=== PATIENT | female | born 1985 | race Caucasian/White ===

== ENCOUNTER 2019-09-17 08:19 | Outpatient (CLI) | payer BC, SELFPAY ==
[2019-09-17 08:47] LABS: Basophils Absolute Auto 0.09 K/mm3 (0.00-0.10); Basophils Percent Auto 1.1 % (0.0-1.0); Eosinophils Absolute Auto 0.78 K/mm3 (0.02-0.50); Eosinophils Percent Auto 9.3 % (1.0-6.0); Hematocrit 44.7 % (35.0-49.0); Hemoglobin 14.7 g/dL (12.0-15.0); Immature Granulocyte Absolute 0.03 K/mm3 (0.00-0.00); Immature Granulocyte Percent A 0.4 % (0.0-0.0); Lymphocytes Absolute Auto 1.93 K/mm3 (1.10-4.50); Lymphocytes Percent Auto 23.1 % (18.0-42.0); Mean Corpuscular HGB Conc 32.9 g/dL (32.0-36.0); Mean Corpuscular Volume 97.2 fL (78.0-102.0); Mean Platelet Volume 9.7 fl (9.2-11.8); Monocytes Absolute Auto 0.46 K/mm3 (0.10-0.90); Monocytes Percent Auto 5.5 % (2.0-11.0); Neutrophils Absolute Auto 5.1 K/mm3 (1.7-7.2); Neutrophils Percent Auto 60.6 % (50.0-70.0); Platelet Count Result 293 K/mm3 (150-420); Red Cell Distribution Width 12.9 % (11.6-14.4); White Blood Count 8.4 K/mm3 (4.8-10.8)
[2019-09-17 08:48] LABS: Add Urine Microscopic? NO; Appearance Urine Clear (Clear); Bilirubin Urine Negative (Negative); Blood Urine Negative (Negative); Color Urine Yellow (Yellow); Glucose Urine UA Negative (Negative); Ketones Urine Negative (Negative); Leukocyte Esterase Ur Negative (Negative); Nitrate Urine Negative (Negative); Protein Urine Negative (Negative); Specific Grav Ur 1.025 (1.010-1.020); Urobilinogen Urine 0.2 mg/dL (0.2-1.0)
[2019-09-17 09:56] LABS: Alanine Aminotransferase 16 U/L (14-59); Albumin Level 4.1 g/dL (3.4-5.0); Alkaline Phosphatase 63 U/L (46-116); Anion Gap 12.9 mmol/L (7-16); Aspartate Amino Transferase 9 U/L (15-37); Bilirubin,Total 0.4 mg/dL (0.00-1.00); Blood Urea Nitrogen 9 mg/dL (7-18); Calcium 9.1 mg/dL (8.5-10.1); Carbon Dioxide 29 mmol/L (21-32); Chloride 106 mmol/L (98-108); Cholesterol 167 mg/dL (0-200); Estimated Glomerular Filt Rate > 60; Glucose 84 mg/dL (70-99); HDL Direct 62 mg/dL (40-60); LDL Cholesterol Calculated 93 mg/dL (<130); Osmolality Calculated 293 mOsm/kg (285-295); Potassium 4.9 mmol/L (3.5-5.1); Sodium 143 mmol/L (136-145); Thyroid Stimulating Hormone 0.89 uIU/mL (0.36-3.74); Triglycerides 62 mg/dL (0-150)
== END 2019-09-17 08:20 | disposition home or self-care (01) ==
PROVIDERS: Student in an Organized Health Care Education/Training Program; PCP Internal Medicine; Visit Provider Internal Medicine
DX: Z00.00 Encounter for general adult medical examination without abnormal findings (principal); Z01.818 Encounter for other preprocedural examination
CPT/HCPCS: 36415; 80053; 80061; 81003; 84443; 85025

== ENCOUNTER 2019-09-24 13:59 | Outpatient (CLI) | payer BC, SELFPAY | END 2019-09-24 14:00 | disposition home or self-care (01) | LOC: ANHSURGERY 14:02 | PROVIDERS: PCP Internal Medicine; Visit Provider Student in an Organized Health Care Education/Training Program | DX: N92.0 Excessive and frequent menstruation with regular cycle (principal) | CPT/HCPCS: 36415; 86850; 86900; 86901 ==

== ENCOUNTER 2019-10-02 00:38 | Day surgery (SDC) | payer BC, SELFPAY ==
[2019-09-24 14:48] VITALS: BP 111/63; PULSE 84; RESP 16; TEMP 37.2; O2SAT 100; BMI 26.2
--- NOTE | 2019-10-01 18:08 | PM.IMHP ---
H&P: HPI History of Present Illness Chief complaint: Menorrhagia Narrative: Dionna Montemayor is a 34 year old female with a long history of irregular menses and abnormal uterine bleeding. Patient reports development of abnormal uterine bleeding between ages 16 and 21. She reports experiencing at least 2 menses every month that last 9-10 days each. Reports heavy menses as well as occasionally painful menses. Patient has tried medical management in the past, which did regulate cycles for a while, however, she did not like them for various reasons and does not desire another trial of medical management, which was offered to her. Patient also declined an endometrial ablation and adamantly desires definitive management with a hysterectomy. Pelvic ultrasound performed in March of 2019 was unremarkable. Pap smear in April of 2019 was negative and endometrial biopsy performed in May of 2019 was also negative. Review of Systems Review of Systems: All systems reviewed & are unremarkable except as noted in HPI and below Constitutional: Constitutional: Reports as per HPI, Reports no additional constitutional complaints, Denies chills, Denies fever(s), Denies headache(s) and Denies night sweats Eyes: Eyes: Reports as per HPI and Reports no additional eye complaints ENT: Reports system reviewed and no additional complaints, except as documented, Reports as per HPI, Reports Normal hearing present and Denies headache(s) Cardiovascular: Cardiovascular: Reports as per HPI, Reports no additional cardiovascular complaints, Denies chest pain and Denies dyspnea Respiratory: Respiratory: Reports as per HPI, Reports no additional respiratory complaints, Denies cough and Denies dyspnea Gastrointestinal: Gastrointestinal: Reports as per HPI, Reports no additional gastrointestinal complaints, Denies abdominal pain, Denies change in bowel habits, Denies change in stool character, Denies nausea and Denies vomiting Genitourinary: Genitourinary: Reports no additional female genitourinary complaints, Reports as per HPI, Reports abnormal menses, Reports abnormal vaginal bleeding, Denies genital lesions, Reports menorrhagia, Denies hot flashes, Denies dyspareunia, Reports dysmenorrhea, Denies pelvic pain, Denies sexual dysfunction, Denies urinary incontinence, Denies vaginal discharge, Denies vaginal dryness and Denies vaginal odor Musculoskeletal: Musculoskeletal: Reports no additional musculoskeletal complaints and Reports as per HPI Integumentary/Breasts: Skin/Breast: Reports system reviewed and no additional complaints, except as docu, Reports as per HPI, Denies breast pain and Denies nipple discharge Neurologic: Reports system reviewed and no additional complaints, except as documented, Reports as per HPI, Reports Normal hearing present and Denies headache(s) Psychiatric: Psychiatric: Reports no additional psychiatric complaints, Reports as per HPI, Denies anxiety and Denies depression Endocrine: Endocrine: Reports no additional endocrine complaints and Reports as per HPI Hematologic/Lymphatic: Hematologic/Lymphatic: Reports no additional hematologic/lymphatic complaints and Reports as per HPI Allergic/Immunologic: Allergic/Immunologic: Reports no additional allergic/immunologic complaints and Reports as per HPI PMFSH Past Medical History Medical History Anxiety Asthma Depression 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, quit 07/2016 Nerve damage s/p back surgery (normal spontaneous vaginal delivery) Surgical History Surgical History History of back surgery L4-S1 History of cholecystectomy [place] teeth removed Family History Family History Mother Family history of gallbladder disease Family history of malignant neoplasm of kidney Family history of rona
[2019-10-02] VITALS (18 sets, daily range): BP systolic 96–118; BP diastolic 53–79; PULSE 66–96; RESP 15–25; TEMP 36.6–37.4; O2SAT 96–100
[2019-10-02] MEDS: LACTATED RINGERS 1,000 ML 30 ML IV CONT ×3 (06:30→11:32)
--- NOTE | 2019-10-02 06:52 | WPDANESEPPF ---
Anes - Initial Pre Proc Eval Procedure: Operation Date: 10/02/19 07:30 Proposed Procedures p Laparoscopic Assisted Vaginal Hysterectomy, Bilateral Salpingectomy - Kerry Ramos MD Date/Time: 10/02/19 06:52 Surgeon: Kerry Ramos MD Pre Op Diagnosis: Menorrhagia Patient Data Age: 34 Gender: F Height: 1.68 m Weight: 73.8 kg Last Vital Signs Temp 37.2 C 09/24/19 14:48 Pulse 84 09/24/19 14:48 Resp 16 09/24/19 14:48 BP 111/63 09/24/19 14:48 Pulse Ox 100 09/24/19 14:48 Allergies Allergy/AdvReac Type Severity Reaction Status Date / Time ibuprofen Allergy Unknown Hives Verified 09/24/19 14:46 naproxen Allergy Unknown Hives Verified 09/24/19 14:46 morphine AdvReac Unknown Nausea Verified 09/24/19 14:46 Home Medications Medication Instructions Recorded Confirmed Type albuterol sulfate 90 mcg/actuation 1 inhalation INHALATION Q4H PRN 06/21/19 09/24/19 History aerosol inhaler ipratropium 20 mcg-albuterol 100 1 puff INHALATION QID PRN 06/21/19 09/24/19 History mcg/actuation mist for inhalation diazepam 5 mg PO BID 09/24/19 09/24/19 History Patient hx anesthesia problems: none Family hx anesthesia problems: none PMFSH Past Medical History Medical History Anxiety Asthma Depression 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, quit 07/2016 Nerve damage s/p back surgery (normal spontaneous vaginal delivery) Surgical History Surgical History History of back surgery L4-S1 History of cholecystectomy [place] teeth removed Family History Family History Mother Family history of gallbladder disease Family history of malignant neoplasm of kidney Family history of malignant neoplasm of thyroid Father Family history of liver disease Family history of kidney disease Other Cerebrovascular accident Family history of allergic disorder Social History Social History Smoking status: Heavy tobacco smoker Alcohol intake: current Gender identity (if verbalized by the patient): Female Anes - Evdyana Final PreProcedure Day of Procedure 10/02/19 06:52 Patient weight: overweight Heart: regular rate and rhythm Lungs: clear to auscultation and normal air movement Airway: Mallampati scale class II Neurological: alert and oriented Last oral intake: >/= 8 hours Emergent: no Anesthetic plan: proceed Anesthesia type and monitoring: general ETT and standard monitoring Other findings: requests no opioids Informed Consent: The patient's anesthetic plan and its attendant risks and benefits were discussed with the patient/family/POA. Questions were solicited and answers provided to the satisfaction of the patient/family/POA.
--- NOTE | 2019-10-02 07:20 | WPDHPUPDATE1 ---
History and Physical Update Update Date/Time: 10/02/19 07:20 History and Physical has been reviewed, including an updated exam of the patient. There are NO changes in the patient's condition. Risks, benefits, and alternatives have been discussed and questions answered. Patient agrees to proceed with procedure.
--- NOTE | 2019-10-02 07:34 | WPDANESPNB ---
Anes - Peripheral Nerve Block Date/Time: 10/02/19 07:34 I have discussed with the patient/family/POA the placement of a peripheral nerve block for post-operative pain management, including associated risks, benefits, complications, and side effects. Alternative methods of post-operative analgesia were detailed. Questions were solicited and answers provided to the satisfaction of the patient/family/POA. Time-Out: A pre-procedural Time-Out was completed immediately before starting the procedure and confirmed: Patient Identification, Site, Procedure, Patient Position and the Availability of Requisite Equipment. Clinical Indications: Acute post-operative pain management requested by the operative surgeon. Nerve Block Insertion Note Anes-nerve block: other (B/L ESSENCE block) Patient position: other (sitting) Skin prep: chlorhexidine Needle: 22 gauge, stimulating, insulated echogenic needle. Needle length: 80 mm Technique: ultrasound Injectate: bupivacaine 0.25% with epi 5 mcg/ml (20cc/20cc) Observations: tolerated well Complications: none Procedure start time:: 723 Procedure end time:: 730
[2019-10-02] MEDS: ceFAZolin 2 GM/D5W 50 ML 2 GM/50 ML BAG IVPB (07:36)
[2019-10-02] MEDS: BACITRACIN OINTMENT 15 GM TUBE 1 APPLIC TOPICAL (10:18)
--- NOTE | 2019-10-02 12:24 | SUR.PHASEI ---
Called dr Ramos about poor urine output. Said to watch it awhile longer.
[2019-10-02] MEDS: DEXTROSE 5%/0.45% SOD CHL 1,000 ML 150 ML IV CONT (13:50)
--- NOTE | 2019-10-02 13:50 | PM.PROC ---
Procedure Note - Detailed Date of procedure: 10/02/19 Pre-op diagnosis: Menorrhagia Irregular menses Abnormal uterine bleeding Menorrhagia Dysmenorrhea Post-op diagnosis: same Procedure performed: Laparoscopic assisted vaginal hysterectomy and bilateral salpingectomy Description of procedure: The patient was taken to the operating room where she self transferred to the operating room table and was placed in dorsal supine position. General anesthesia was administered without difficulty and found to be adequate. The patient was repositioned in dorsal lithotomy position with the use of Andrew stirrups and her arms were carefully tucked at her side. She was prepped and draped in the usual sterile fashion. A Villatoro catheter was inserted using sterile technique. A bivalve speculum was placed into the vagina. With good visualization of the cervix, the anterior lip of the cervix was grasped with a single-tooth tenaculum. The uterus was sounded to 8 cm. The cervix was serially dilated to accommodate the insertion of a HUMI uterine manipulator, which was inserted into the uterus for use during the laparoscopic portion of the case. The tenaculum and speculum were removed. Tool Liaison's gloves were changed. Attention was turned to the patient's abdomen. A small amount of Exparel was injected along the fascia for postoperative pain management in the infraumbilical region. A small infraumbilical incision was made with the scalpel. While tenting the abdominal wall, a Veress needle was inserted into the abdominal cavity. Intra-abdominal confirmation was made with saline. Carbon dioxide tubing was connected to the Veress needle and insufflation was begun. The abdomen was insufflated to 15 mm Hg. Once adequate pneumoperitoneum was achieved, the Veress needle was removed and a 5 mm Opti view trocar was inserted into the abdominal cavity under direct visualization with the laparoscope. The trocar was removed. The laparoscope was introduced into the abdominal cavity through the sheath. For enhanced visualization and completion of the procedure, 2 lateral trocars were placed, 1 in the left lower quadrant and 1 in the right lower quadrant. A small amount of Exparel was injected along the fascia in the right lower quadrant. A small skin incision was made with the scalpel, and a 5 mm trocar was placed under direct visualization. Similarly, Exparel was injected in the left lower quadrant, a small skin incision was made, and an additional 5 mm trocar was placed under direct visualization. The patient was placed in Trendelenburg position. This allowed good visualization of pelvic structures. The uterus appeared normal and mobile. The ovaries and fallopian tubes appeared to be normal bilaterally. The anterior and posterior cul-de-sacs also appeared clean without evidence of scarring or adhesions. The ureters, however, were not well visualized at this time. With the use of the LigaSure bipolar cautery and transection device, the left fallopian tube was identified, grasped, cauterized, and transected at the distal end. At the level of the mesosalpinx, the mesosalpinx beneath the tube was serially cauterized and transected to the level of the left cornua of the uterus. The left utero-ovarian ligament was then cauterized and transected to separate the ovary from the uterus. The left round ligament was identified, grasped, cauterized, and transected. With the LigaSure, the anterior leaf of the broad ligament was transected toward the midline, beginning the creation of the bladder flap. The remainder of the posterior leaf of the broad ligament and cardinal ligaments on the left side were also dissected until the uterine artery was identified. The uterine artery was cauterized and transected with the LigaSure. Moderate bleeding was encountered. Bleeding was made hemostatic with LigaSure device. Attention was then turned to the right side where the right fallopian tube was identified and gra
--- NOTE | 2019-10-02 14:00 | PC.NURSE ---
This patient, Dionna Montemayor, was received from PACU per bed to room 289 on 10/02/19 at 1341. Patient/family oriented to unit policies and routines
[2019-10-02] MEDS: DIAZEPAM 5 MG TABLET PO (14:28)
[2019-10-02] MEDS: ONDANSETRON INJ 4 MG/2 ML VIAL 8 MG IV PUSH (14:29)
[2019-10-02] MEDS: ZOLPIDEM TARTRATE 5 MG TABLET 10 MG PO (23:20)
[2019-10-03] MEDS: DIAZEPAM 5 MG TABLET PO (02:32)
[2019-10-03 05:00] VITALS: PULSE 85; RESP 16; O2SAT 97
[2019-10-03 05:30] VITALS: BP 92/57; PULSE 85; RESP 16; TEMP 36.3; O2SAT 97
[2019-10-03 07:00] VITALS: BP 102/58; PULSE 68; RESP 20; TEMP 37.4
--- NOTE | 2019-10-03 08:32 | PM.GYNPNOP ---
STAFF DESIGN ENGINEER - A/P Assessment and plan (1) S/P laparoscopic assisted vaginal hysterectomy (LAVH): Code(s): Z90.710 - Acquired absence of both cervix and uterus Status: Acute Assessment and Plan: Doing well this morning Pain well controlled with medication Patient voiding well without difficulty and ambulating well Patient requesting discharge home this morning, which I agree with Emergency precautions reviewed with patient Follow up in office in 2 weeks for postoperative visit or sooner if necessary Postoperative Procedures: Procedures Operation Date: 10/02/19 07:30 Actual Procedures Side Surgeon p Laparoscopic Assisted Vaginal Hysterectomy, Bilateral Salpingectomy Not Applicable Kerry Ramos MD Time Spent With Patient Time: Total time spent is greater than 50% in coordination of care (as documented) at patient's floor/unit and/or counseling patient: Time with patient: less than 15 minutes STAFF DESIGN ENGINEER- PN:Subj Post-Op Subjective Date/time seen: 10/03/19 08:32 Doing well this morning. Pain well controlled with Tylenol. Patient did well with Valium and Ambien overnight. Villatoro catheter and vaginal packing removed after 12 hours due to patient discomfort. Patient able to void well without difficulty afterwards. +flatus. Denies significant abdominal pain or heavy vaginal bleeding. Also denies any headache, chest pain, shortness of breath, nausea, or vomiting. Tolerating p.o. diet well. Patient requesting discharge this morning. Exam Const: General: comfortable and no acute distress GI: Inspection: non-distended GI Palp: Yes Soft to palpation, Yes Tenderness to palpation present (GI) (appropriate tenderness near incision sites) and No Guarding due to palpation present (GI) : Other: no blood on peripad Extrem: Right lower extremity: no edema Left lower extremity: no edema Other: no calf tenderness STAFF DESIGN ENGINEER - PN: Obj Data Vital Signs Vital Signs: Vital Signs - 24 hr 10/02/19 11:21 10/02/19 11:35 10/02/19 11:50 Temperature 36.6 C Pulse Rate 90 92 70 Respiratory Rate 18 15 23 H Blood Pressure 118/74 101/58 L 107/63 Pulse Oximetry 100 100 100 10/02/19 12:05 10/02/19 12:20 10/02/19 12:35 Temperature Pulse Rate 73 76 79 Respiratory Rate 22 H 25 H 22 H Blood Pressure 116/71 116/69 110/72 Pulse Oximetry 100 96 97 10/02/19 12:50 10/02/19 13:05 10/02/19 13:20 Temperature Pulse Rate 74 82 94 Respiratory Rate 19 23 H 19 Blood Pressure 112/79 101/53 L 101/53 L Pulse Oximetry 96 98 100 10/02/19 13:32 10/02/19 13:45 10/02/19 14:00 Temperature 36.9 C Pulse Rate 96 84 66 Respiratory Rate 17 16 16 Blood Pressure 99/65 L 113/54 L 114/66 Pulse Oximetry 98 100 99 10/02/19 14:30 10/02/19 15:00 10/02/19 18:08 Temperature Pulse Rate 73 71 66 Respiratory Rate 16 16 Blood Pressure 101/57 L 96/55 L 114/53 L Pulse Oximetry 98 99 98 10/02/19 20:05 10/02/19 23:22 10/03/19 05:00 Temperature 36.9 C 36.8 C Pulse Rate 74 90 85 Respiratory Rate 16 18 16 Blood Pressure 114/60 114/65 Pulse Oximetry 99 97 97 10/03/19 05:30 10/03/19 07:00 Temperature 36.3 C L 37.4 C Pulse Rate 85 68 Respiratory Rate 16 20 Blood Pressure 92/57 L 102/58 L Pulse Oximetry 97 Intake/Output Intake/Output: Intake & Output 09/30/19 10/01/19 10/02/19 10/03/19 23:59 23:59 23:59 23:59 Intake Total 1790 120 Output Total 1860 375 Balance -70 -255 Meds/Results Medications: Active Medications Generic Name Dose Route Start Last Admin Trade Name Roxie PRN Reason Stop Dose Admin Acetaminophen 1,000 mg 10/03/19 08:30 Tylenol Tablet PO Q6H PRN Mild Pain (1-3) or Fever Diazepam 5 mg 10/02/19 14:21 10/03/19 02:32 Valium Po PO 5 mg BID PRN Administration Anxiety Dextrose/Sodium Chloride 1,000 mls @ 200 mls/hr 10/02/19 12:40 10/03/19 02:33 Dextrose 5% Sodium Chloride 0.45% IV CONT Not Given .Q5H PHILIP Acetaminophen 1,000 mg in 100 mls @ 400 mls/hr
[2019-10-03] MEDS: ACETAMINOPHEN 500 MG TABLET 1000 MG PO (09:06)
--- NOTE | 2019-10-03 13:08 | WPDANESPN ---
Anes - Prog Note Post-Op Date/Time: 10/03/19 13:08 Cardiovascular status: normal Respiratory status: normal Airway patency: baseline Mental status: baseline Post-Op hydration status: normal Vital Signs: Last Vital Signs Temp 37.4 C 10/03/19 07:00 Pulse 68 10/03/19 07:00 Resp 20 10/03/19 07:00 BP 102/58 L 10/03/19 07:00 Pulse Ox 97 10/03/19 05:30 Pain Score (VAS): 0/10. Patient sitting up in bed at time of assessment, appears comfortable. Support person and RN at bedside. I/O: Intake & Output 10/02/19 10/03/19 10/03/19 23:59 07:59 15:59 Intake Total 340 120 Output Total 1550 375 Balance -1210 -255 Post-procedural complaints: none Patient Feedback: Patient satisfied with anesthetic care.
== END 2019-10-03 09:42 | disposition home or self-care (01) ==
LOC: ANHSURGERY 05:51 → ANHOB2 13:48
PROVIDERS: PCP Internal Medicine; Visit Provider Student in an Organized Health Care Education/Training Program
PROC: 0UT9FZZ Resection of Uterus, Via Natural or Artificial Opening With Percutaneous Endoscopic Assistance (ICD-10-PCS; CPT 58552; principal; 2019-10-02 07:30)
DX: N92.0 Excessive and frequent menstruation with regular cycle (principal); N80.0 Endometriosis of uterus; G89.18 Other acute postprocedural pain; J45.909 Unspecified asthma, uncomplicated; F41.8 Other specified anxiety disorders; F11.21 Opioid dependence, in remission; F17.210 Nicotine dependence, cigarettes, uncomplicated
CPT/HCPCS: 58552; 64461; 88307; 99199; A9270; C9290; J0131; J0330; J0690; J1100; J2250; J2405; J2704; J3010; J7030; J7120

== ENCOUNTER 2020-04-27 16:21 | Outpatient (CLI) | payer BC, SELFPAY ==
--- NOTE | ~2020-04-27 | XR_ITS ---
EXAMINATION: XR hip LT min 2V DATE: 04/27/2020 17:25 INDICATION: Left hip pain. TECHNIQUE: 2 views of left hip were obtained. COMPARISON: Left hip radiographs 02/15/2014 FINDINGS: Bone alignment is normal. No fracture. There is mild left hip osteoarthritis. There are emerson nges of anterior and posterior fusion procedures in lumbosacral spine. IMPRESSION: 1. Mild left hip osteoarthritis. Reviewed, dictated and finalized at location A.
== END 2020-04-27 16:22 | disposition home or self-care (01) ==
LOC: CHSIMG 16:23
PROVIDERS: PCP Internal Medicine; Visit Provider Internal Medicine
DX: M25.552 Pain in left hip (principal)
CPT/HCPCS: 73502

== ENCOUNTER 2020-08-20 19:29 | Emergency (ER) | payer BC, SELFPAY ==
--- NOTE | ~2020-08-20 | CT_ITS ---
EXAMINATION: CT abdomen pelvis wo con DATE: 08/20/2020 20:15 INDICATION: Right-sided abdominal pain TECHNIQUE: Computed tomography (CT) of the abdomen and pelvis was performed without intravenous contr ast. The dose-length product (DLP) was 669.17 mGy-cm. Automated exposure control and iterative recons truction technique were employed. COMPARISON: 11/09/2012 FINDINGS: Minimal dependent atelectasis is present in the lung bases. The heart size is normal. The g allbladder is surgically absent. The liver, spleen, pancreas, and adrenal glands are normal. The kidn eys are unremarkable. No pathologically enlarged abdominal or pelvic lymph nodes are identified. Ther e is no free intraperitoneal gas or evidence of bowel obstruction. The appendix is normal. Changes of hysterectomy are noted. There is a tiny fat-containing umbilical hernia. There are changes of anteri or and posterior fusion from L4 through S1. IMPRESSION: 1. No CT correlate for the patient's symptoms. Tiny fat-containing umbilical hernia. Reviewed, dictated and finalized at location A. LSIOR MACHINE OPERATOR IMPRESSION: 1. No CT correlate for the patient's symptoms. Tiny fat-containing umbilical he rnia.
[2020-08-20 20:12] VITALS: BP 113/74; PULSE 90; RESP 20; TEMP 36.7; O2SAT 99
--- NOTE | 2020-08-20 20:35 | ED.ABDPAIN ---
HPI - Abdominal Pain General Chief Complaint: Abdominal Pain Stated Complaint: possible hernia Source: patient Mode of arrival: ambulatory History of Present Illness HPI narrative: This is a 35-year-old female that presents with abdominal pain that has been present for for months, has seen her primary care physician recently and did a workup, patient is having some periumbilical discomfort with no nausea vomiting no radiation of her pain no dysuria no diarrhea or constipation there is no chest pain no shortness of breath. The patient had a hysterectomy laparoscopically and feels that since that event she has had hernia. MD elicited complaint: abdominal pain Pertinent past history: none Onset (ago): month(s) Pain Consistency: intermittent Location: periumbilical Severity: mild Quality: aching Related Data Home Medications Medication Instructions Recorded Confirmed albuterol sulfate 90 mcg/actuation 1 inhalation INHALATION Q4H PRN 06/21/19 10/02/19 aerosol inhaler ipratropium 20 mcg-albuterol 100 1 puff INHALATION QID PRN 06/21/19 10/02/19 mcg/actuation mist for inhalation diazepam 5 mg PO BID 09/24/19 10/02/19 Allergies Allergy/AdvReac Type Severity Reaction Status Date / Time ibuprofen Allergy Unknown Hives Verified 11/14/19 11:01 naproxen Allergy Unknown Hives Verified 11/14/19 11:01 morphine AdvReac Unknown Nausea Verified 11/14/19 11:01 fentanyl AdvReac Unknown Verified 08/20/20 20:19 Review of Systems Review of Systems: All systems reviewed & are unremarkable except as noted in HPI and below PMFSH Past Medical History Medical History Anxiety Asthma Depression 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, quit 07/2016 Nerve damage s/p back surgery (normal spontaneous vaginal delivery) Pulmonary nodule Surgical History Surgical History H/O bilateral salpingectomy History of back surgery L4-S1 History of cholecystectomy [place] teeth removed Family History Family History Mother Family history of gallbladder disease Family history of malignant neoplasm of kidney Family history of malignant neoplasm of thyroid Father Family history of liver disease Family history of kidney disease Other Cerebrovascular accident Family history of allergic disorder Social History Social History Smoking packs per day: 1 Smoking cigarettes per day: 20.0 Smoking status: Heavy tobacco smoker Tobacco type: cigarettes Alcohol intake: current Substance use: former Substance use type: opiates Gender identity (if verbalized by the patient): Female Exam Const: General: no acute distress and alert Orientation/consciousness: patient oriented x3 Limitations: altered mental status HENMT: Head: normal to inspection Eyes: Conjunctivae: conjunctivae normal Pupils: Equal, round and reactive pupils present Neck: Neck: normal visual inspection and no meningeal signs Chest: Chest palpation & inspection: normal inspection of the chest Resp: Effort & Inspection: normal respiratory effort Cardio: Rate: regular rate Rhythm: regular rhythm GI: GI Palp: Yes Soft to palpation and Yes Tenderness to palpation present (GI) : General: Yes no CVA tenderness Urinary Catheter: Urinary Catheter: patent and draining Skin: General skin exam: normal color Rashes: no rashes Neuro: General: patient oriented x3 Psych: Appearance: grossly normal Mental Status: mental status grossly normal Course Course Emergency Course: During my assessment no visual hernia was present, did review the CT findings which did show a tiny umbilical hernia containing fat. Otherwise patient declined any pain medication at this time and advised patient to follow
[2020-08-20 20:53] VITALS: PULSE 88; RESP 20; O2SAT 99
== END 2020-08-20 21:05 | disposition home or self-care (01) ==
PROVIDERS: Emergency Provider Emergency Medicine; PCP Internal Medicine
DX: R10.9 Unspecified abdominal pain (principal)
CPT/HCPCS: 74176; 99282; 99284

== ENCOUNTER 2021-01-16 07:51 | Outpatient (CLI) | payer BC, SELFPAY ==
--- NOTE | ~2021-01-16 | MR_ITS ---
EXAMINATION: MR knee LT wo con DATE: 01/16/2021 09:55 INDICATION: Internal derangement of the left knee. TECHNIQUE: Magnetic resonance imaging (MRI) of the left knee was performed without intravenous contra st. Sequences included coronal PD-weighted FSE, coronal PD-weighted FS FSE, sagittal T2-weighted FSE , sagittal PD-weighted FS FSE and axial PD weighted fat saturated FSE. COMPARISON: None. FINDINGS: Medial compartment: Medial meniscus is normal. Articular cartilage is normal. Lateral compartment: Lateral meniscus is normal. Articular cartilage is normal. Patellofemoral compartment: Articular cartilage is normal. Ligaments and tendons: Anterior and posterior cruciate ligaments are normal. The fibular collateral ligament is normal. Mode rate grade strain/partial tear of the proximal medial collateral ligament which is thickened with pro minent increased intrasubstance signal and surrounding edema. The extensor mechanism is normal. The v isualized medial and lateral hamstring tendons as well as the iliotibial band are normal. Fluid: Physiologic amount of fluid in the joint space. No loose osteochondral bodies identified. Small Hannah 's cyst. Osseous/other: Normal marrow signal. No fracture or abnormal marrow replacing process. IMPRESSION: 1. Moderate grade strain/partial tear of the proximal medial collateral ligament. 2. Small Hannah's cyst. Reviewed, dictated and finalized at location A. IMPRESSION: 1. Moderate grade strain/partial tear of the proximal medial collateral ligamen t. 2. Small Hannah's cyst.
== END 2021-01-16 07:52 | disposition home or self-care (01) ==
LOC: CHSIMG 07:53
PROVIDERS: PCP Internal Medicine; Visit Provider Internal Medicine
DX: M25.562 Pain in left knee (principal); M23.90 Unspecified internal derangement of unspecified knee
CPT/HCPCS: 73721

== ENCOUNTER 2021-11-12 08:10 | Outpatient (CLI) | payer OTHER, SELFPAY ==
--- NOTE | ~2021-11-12 | XR_ITS ---
EXAMINATION: XR hip RT 2V w AP pelvis DATE: 11/12/2021 08:38 INDICATION: Right hip pain. TECHNIQUE: An anteroposterior view of the pelvis and 2 views of right hip were obtained. COMPARISON: Bilateral hip radiographs 02/15/2014 FINDINGS: Bone alignment is normal. No fracture. There are changes of anterior and posterior fusion p rocedures from L4 to S1. There is mild osteoarthritis of the hips characterized by tiny osteophytes. No joint space narrowing. IMPRESSION: 1. Mild osteoarthritis of the hips. Reviewed, dictated and finalized at location A.
== END 2021-11-12 08:11 | disposition home or self-care (01) ==
LOC: CHSIMG 08:14
PROVIDERS: PCP Internal Medicine; Visit Provider Internal Medicine
DX: M25.551 Pain in right hip (principal)
CPT/HCPCS: 73502

== ENCOUNTER 2022-04-19 07:26 | Outpatient (CLI) | payer OTHER, SELFPAY ==
--- NOTE | ~2022-04-19 | MR_ITS ---
EXAMINATION: MR hip RT wo con DATE: 04/19/2022 08:58 INDICATION: Right hip pain. TECHNIQUE: Magnetic resonance imaging (MRI) of the right hip was performed without intravenous contra st. COMPARISON: Pelvis and right hip radiographs 11/12/2021 FINDINGS: Bones/cartilage: There are changes of anterior and posterior fusion procedures in lumbosacral spine. No fracture. The femoral head/neck morphologies are normal. Right hip joint cartilage is normal. Labrum: Small [id number] images show a tear of base of right acetabular labrum superiorly and posterosuper iorly. Large [id number] images demonstrate a tear of left acetabular labrum. Fluid: There is no hip joint effusion. There is mild right trochanteric bursitis. Soft tissues: The iliopsoas tendons are normal. The hamstring tendon origins are normal. The gluteus minimus tendon s are normal. There is mild right gluteus medius tendinopathy. Left gluteus medius tendon is normal. IMPRESSION: 1. Bilateral acetabular labral tears. 2. Mild right gluteus medius tendinopathy. 3. Mild right trochanteric bursitis. Reviewed, dictated and finalized at location A.
== END 2022-04-19 07:27 | disposition home or self-care (01) ==
LOC: CHSIMG 07:28
PROVIDERS: PCP Internal Medicine; Visit Provider Internal Medicine
DX: M25.551 Pain in right hip (principal)
CPT/HCPCS: 73721

== ENCOUNTER 2022-06-06 16:52 | Outpatient (RCR) | payer OTHER, SELFPAY ==
--- NOTE | 2022-06-06 17:58 | PTOPEVAL1 ---
Assessment and note entered by Liza Mallory DPT Evaluation Information Assessment Status Evaluation Diagnosis Trochanteric pain syndrome Onset 05/20/2022 Subjective Information Pt reports that hip pain started a little over a year ago with insidious onset but reports a lot of her family has required hip replacements. Pt reports that she has frequent falls due to decreased strength in her back that increase her pain in her hip. Pt reports increased pain in her hips especially with standing, R>L. She reports burning and pins and needles sensation from her lateral hip, groin, inferolateral thigh, and back. She reports increased pain in her hip when she moves in bed at night, and has the most pain when she sleeps on her R side. She has her follow-up with her MD on 07/01/2022. Pt has had an MRI. Pt reports that her MD wants to perform PT and then reassess at her next visit. Reported Pain Level Pain Score 8,2: Self Report Assessment PT Clinical Summary Pt presents to physical therapy with bilateral hip pain, decreased strength, decreased ROM, and antalgic Trendelenberg gait. Her current deficits make it more challenging for her to stand up and walk as needed for her job and recreational activities. She was provided with an HEP focused on improve strength, especially of the hip abductors, and mobility of the hip within her tolerance. She will benefit from skilled PT to facilitate symptom relief, improve the aforementioned impairments, and return to functional and recreational activities. Plan of Care Interventions Electrical Stimulation,Gait Training,Hot Pack/Cold Pack,Manual Therapy,Neuro Re-education,Patient/ Caregiver Educati,Therapeutic Activities, Therapeutic Exercise PT Services Indicated Yes These treatments will address the objective and functional deficits as defined above. The patient will be advanced safely and appropriately in order for the patient to progress towards his/her prior level of function. Additional exercises will be introduced and as well as a comprehensive home exercise program upon discharge, if needed, ?to ensure carryover of functional gains achieved in the clinic. This treatment plan has been reviewed and agreement upon by the patient.
--- NOTE | 2022-10-04 09:15 | PCPTNOTE ---
mrs. park has not been to skilled PT since 06/29/22. as of that note, she continued to display moderate pain in the bilateral hips. she will be DC'd from skilled PT services this date, and all progress towards goals will be taken from her most evaluation/note.
== END 2022-06-29 23:59 | disposition home or self-care (01) ==
LOC: CHSPT 16:52
PROVIDERS: Visit Provider Orthopaedic Surgery
DX: M25.551 Pain in right hip (principal)
CPT/HCPCS: 97014; 97110; 97140; 97162; G0283

== ENCOUNTER 2022-08-21 10:43 | Emergency (ER) | payer OTHER, SELFPAY ==
--- NOTE | ~2022-08-21 | XR_ITS ---
EXAMINATION: XR hip LT 1V w AP pelvis DATE: 08/21/2022 11:35 INDICATION: Left hip pain. TECHNIQUE: An anteroposterior view of the pelvis and single view of left hip were obtained. COMPARISON: Pelvis and right hip radiographs 11/12/2021 FINDINGS: There are changes of anterior and posterior fusion procedures from L4 to S1. No fracture. T here is mild osteoarthritis of the hips characterized by tiny osteophytes. IMPRESSION: 1. Mild osteoarthritis of the hips. Reviewed, dictated and finalized at location A. ER [employer]
[2022-08-21 10:44] VITALS: BP 120/80; PULSE 89; RESP 16; TEMP 36.6; O2SAT 99
--- NOTE | 2022-08-21 10:53 | ED.GENADULT ---
HPI - General Adult General Chief complaint: Fall Stated complaint: lower extremity pain Source: patient Mode of arrival: ambulatory Limitations: no limitations History of Present Illness HPI narrative: patient is a 37-year-old white female with chronic back pain and hip pain bilaterally with lower lumbar surgery. Before she finished 6 weeks of physical therapy. She sees an orthopedist and he has done a MRI of her right hip without contrast. Tomorrow at 11:00 a.m. she is scheduled for repeat MRI of the right hip with IV contrast. Three days ago she fell at work and now she complains of increased left hip pain right lower back pain and left thigh pain. She has Vicodin at home but only takes 2.5 mg or half of a Vicodin once a week in order that her 15 tablets will last her 3 months. She last took 1 last 3 days ago. Otherwise she uses marijuana for pain. Patient says she has not taken any Ketoralac or diclofenac for over 2 weeks. Denies numbness or weakness pain in her left thigh is laterally. But does not involve knee or anything from the knee down. Denies any paresthesias. She says normally when she is taking her medicine her pain is a 4/10 and now it is 8. Denies any other symptoms except occasional runny nose. Has any shortness of breath cough chest pain abdominal pain problems voiding or stooling or eating or drinking. Denies any rash or itching bleeding or bruising. Related Data Home Medications Medication Instructions Recorded Confirmed albuterol sulfate 90 mcg/actuation 1 inhalation inhalation Q4H PRN SOB 06/21/19 08/21/22 aerosol inhaler (ProAir HFA) diazepam 5 mg tablet 5 mg PO BID 09/24/19 08/21/22 diclofenac sodium 75 mg 75 mg PO DAILY 08/21/22 08/21/22 tablet,delayed release famotidine 40 mg tablet 40 mg PO DAILY 08/21/22 08/21/22 lorazepam 1 mg tablet 1 mg PO DAILY 08/21/22 08/21/22 Allergies Allergy/AdvReac Type Severity Reaction Status Date / Time ibuprofen Allergy Unknown Hives Verified 08/21/22 11:00 naproxen Allergy Unknown Hives Verified 08/21/22 11:00 morphine AdvReac Unknown Nausea Verified 08/21/22 11:00 fentanyl AdvReac Unknown Verified 08/21/22 11:00 Review of Systems Constitutional: Constitutional: Reports as per HPI and Reports no additional constitutional complaints Eyes: Eyes: Reports no additional eye complaints ENT: Reports system reviewed and no additional complaints, except as documented Cardiovascular: Cardiovascular: Reports no additional cardiovascular complaints and Denies chest pain Respiratory: Respiratory: Reports no additional respiratory complaints, Denies cough and Denies dyspnea Gastrointestinal: Gastrointestinal: Reports as per HPI and Reports no additional gastrointestinal complaints Genitourinary: Genitourinary: Reports no additional female genitourinary complaints and Reports as per HPI Musculoskeletal: Musculoskeletal: Reports no additional musculoskeletal complaints, Reports as per HPI, Reports back pain and Reports arthralgias Comments: Patient states she gets SI joint injections from her orthopedist. Integumentary/Breasts: Skin/Breast: Reports system reviewed and no additional complaints, except as docu Neurologic: Reports system reviewed and no additional complaints, except as documented Hematologic/Lymphatic: Hematologic/Lymphatic: Reports no additional hematologic/lymphatic complaints Allergic/Immunologic: Allergic/Immunologic: Reports no additional allergic/immunologic complaints PMFSH Past Medical History Medical History Anxiety Asthma Depression 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, quit 07/2016 Nerve damage s/p back surgery (normal spontaneous vaginal delivery) Pulmonary nodule Surgical History Surgical History H/O bilateral salpingectomy History of back surge
[2022-08-21] MEDS: KETOROLAC 30 MG/ML VIAL (*BKC) IM (11:24)
[2022-08-21 11:52] VITALS: BP 122/82; PULSE 94; RESP 20; TEMP 36.7; O2SAT 98
== END 2022-08-21 12:02 | disposition home or self-care (01) ==
PROVIDERS: Emergency Provider Emergency Medicine; PCP Internal Medicine
DX: M25.552 Pain in left hip (principal); G89.29 Other chronic pain; F17.210 Nicotine dependence, cigarettes, uncomplicated; F41.9 Anxiety disorder, unspecified; F32.9 Major depressive disorder, single episode, unspecified; J45.909 Unspecified asthma, uncomplicated; W19.XXXA Unspecified fall, initial encounter; Y99.0 Civilian activity done for income or pay
CPT/HCPCS: 73501; 96372; 99283; J1885

== ENCOUNTER 2022-08-22 10:56 | Outpatient (CLI) | payer OTHER, SELFPAY ==
--- NOTE | ~2022-08-22 | XR_ITS ---
EXAMINATION: XR fl inj hip RT for MR/CT DATE: 08/22/2022 11:48 INDICATION: Right hip labral tear TECHNIQUE: A time-out was performed to verify the patient's name, date of , and procedure to b e performed. The procedure including the risks, benefits, and alternatives was discussed with the pat ient. Risks discussed included bleeding and infection. The patient understood the risks and agreed to proceed. The skin overlying the right hip joint was prepped and draped in usual sterile fashion. A nesthetic was administered with 1% lidocaine subcutaneously. A 22 G needle was advanced under fluoro scopic guidance into the joint. Injection of 1 mL of Omnipaque 350 confirmed intra-articular positio n of the needle. Subsequently, injectate consisting of 12 mL of 2:1:1 mixture of sterile saline:Omni paque 350:1% lidocaine mixed 200:1 with 529 mg/mL Multihance gadolinium contrast was injected with in tra-articular position confirmed with intermittent fluoroscopy. The needle was removed and the entry site was cleaned and dressed. There were no immediate complications. Fluoroscopy exposure time was 0 .1 minutes. The total number of images was 8. FINDINGS: Real-time fluoroscopy demonstrates the needle in the right hip joint. IMPRESSION: 1. Successful right hip joint injection of dilute gadolinium contrast mixture for subsequent MRI arth rogram which will be dictated separately. Reviewed, dictated and finalized at location B. 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 Successful right hip joint injection of dilute gadolinium contrast mixture f or subsequent MRI arthrogram which will be dictated separately.
--- NOTE | ~2022-08-22 | MR_ITS ---
EXAMINATION: MR hip RT w con DATE: 08/22/2022 12:29 INDICATION: Right hip labral tear TECHNIQUE: Magnetic resonance (MR) arthrogram of the right hip was performed following intra-articula r gadolinium contrast injection and without intravenous contrast. Details of the hip joint injection have been dictated separately. Sequences included small field of view of the right hip with axial and sagittal T1-weighted FS SE and T2-weighted FS FSE and coronal T1-weighted SE and T2-weighted FS FSE . Additional T1-weighted FGRE images in a radial pattern oriented orthogonal to the acetabular rim we re obtained for evaluation of the labrum. COMPARISON: Right hip MRI dated 04/01/2022 and left hip and pelvis radiographs dated 08/21/2022 FINDINGS: Bones/labrum/cartilage: Alignment is normal. No fracture, avascular necrosis or pathologic marrow replacing process. Again s een is metallic magnetic field artifact associated with an instrumented anterior and posterior spinal fusion of L4-S1. Contrast extends into a tear of the right acetabular labrum beginning superiorly at the 12:00 position extending posteriorly to the 10:30 position. Articular cartilage appears normal. There appears be a similar tear at the superior to posterior superior left acetabular labrum on the l arge [id number] images. There is mild subarticular edema-like versus cystlike change at the left a cetabulum suggesting at least mild osteoarthritis with focal high-grade chondromalacia at the superio r left acetabulum. Fluid: Physiologic amount fluid in the contralateral left hip. Again seen is asymmetric minimal increased fl uid signal overlying the right greater trochanter consistent with minimal bursitis. Soft tissues: Normal and symmetric muscle bulk and signal in the pelvis and visualized proximal thighs. Again seen is mild tendinopathy without discrete tear at the junction of the right gluteus medius and minimus te ndons. The bilateral iliopsoas,, proximal hamstring and left gluteal tendons are normal. The uterus i s not identified and has likely been surgically resected. Complex T2 hyperintense 3 cm cystic right a dnexal lesion with peripheral irregular region of decreased signal intensity. Limited evaluation of v isceral organs of the pelvis is otherwise unremarkable. No pathologically enlarged pelvic/inguinal l ymphadenopathy. IMPRESSION: 1. Relatively symmetric bilateral acetabular labral tears. 2. Persistent mild right trochanteric bursitis with mild tendinopathy without tear at the junction of the right gluteus medius and minimus tendons. 3. 3 cm complex cystic right adnexal lesion, statistically much more likely to represent a hemorrhagi c cyst with peripheral clot rather than ovarian neoplasm with solid soft tissue component. Recommend follow-up pelvic ultrasound in 6-12 weeks to document resolution. Reviewed, dictated and finalized at location B. 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 Relatively symmetric bilateral acetabular labral tears. 2. Persistent mild right trochanteric bursitis with mild tendinopathy without t ear at the junction of the right gluteus medius and minimus tendons. 3. 3 cm complex cystic right adnexal lesion, statistically much more likely to represent a hemorrhagic cyst with peripheral clot rather than ovarian neoplasm with solid soft tissue component. Recommend follow-up pelvic ultrasound in 6-12 weeks to document resolution.
== END 2022-08-22 10:57 ==
LOC: MICIMG 10:58
PROVIDERS: PCP Internal Medicine; Visit Provider Orthopaedic Surgery
DX: M25.551 Pain in right hip (principal)
CPT/HCPCS: 20610; 73722; 77002; A9577; Q9967

== ENCOUNTER 2022-08-23 09:33 | Outpatient (CLI) | payer OTHER, SELFPAY ==
--- NOTE | ~2022-08-23 | XR_ITS ---
Right elbow Technique: AP, oblique, and lateral views were obtained. Clinical History: Pain Findings: No acute fracture or dislocation is seen. Osseous alignment is anatomic. Joint spaces are p reserved. There is no displacement of the fat pads, and soft tissues are unremarkable. Impression: Unremarkable radiographs. Reviewed, dictated and finalized at location . [employer] Impression: Unremarkable radiographs.
== END 2022-08-23 09:34 | disposition home or self-care (01) ==
LOC: CHSIMG 09:39
PROVIDERS: PCP Internal Medicine; Visit Provider Internal Medicine
DX: S59.901A Unspecified injury of right elbow, initial encounter (principal)
CPT/HCPCS: 73080

== ENCOUNTER 2022-11-28 07:19 | Emergency (ER) | payer OTHER, SELFPAY ==
--- NOTE | ~2022-11-28 | CT_ITS ---
EXAMINATION: CT abdomen pelvis w con DATE: 11/28/2022 08:26 INDICATION: Right lower quadrant abdominal pain. TECHNIQUE: Computed tomography (CT) of the abdomen and pelvis was performed with 100 mL Omnipaque 350 intravenous contrast. Automated exposure control and iterative reconstruction technique were employe d. The dose-length product was 785.42 mGy-cm. COMPARISON: CT abdomen and pelvis 08/20/2020 FINDINGS: The visualized portions of the lung bases demonstrate minimal atelectasis. No pleural effus ion. The heart size is normal. No pericardial effusion. There is an 8 mm cyst in the liver. There are changes of cholecystectomy. The spleen, pancreas, adrenal glands, and left kidney are normal. There is 8 mm cyst in right kidney. There are no dilated loops of bowel. The appendix is normal. There are no pathologically enlarged lymph nodes. There is no free intraperitoneal fluid. There are changes of anterior and posterior fusion procedures from L4 to S1. IMPRESSION: 1. No etiology for the patient's symptoms. Reviewed, dictated and finalized at location A.
[2022-11-28 07:19] VITALS: BP 122/85; PULSE 110; RESP 18; TEMP 36.6; O2SAT 98
--- NOTE | 2022-11-28 07:35 | ED.ABDPAIN ---
HPI - Abdominal Pain General Chief Complaint: Abdominal Pain Stated Complaint: right lower abdominal pain Time Seen by Provider: 11/28/22 07:24 History of Present Illness HPI narrative: This is a 37-year-old female, with past medical history of cholecystectomy and hysterectomy who presents emerged department planing of right lower quadrant abdominal pain for the past 2 days. Pain initially began in the right flank and radiated to the right groin became sharp and is rated 5/10 and is aggravated by movement. She complains of nausea, chills and urinary hesitancy but denies fevers. Related Data Home Medications Medication Instructions Recorded Confirmed albuterol sulfate 90 mcg/actuation 1 inhalation inhalation Q4H PRN SOB 06/21/19 11/28/22 aerosol inhaler (ProAir HFA) diazepam 5 mg tablet 5 mg PO BID 09/24/19 11/28/22 diclofenac sodium 75 mg 75 mg PO DAILY 08/21/22 11/28/22 tablet,delayed release famotidine 40 mg tablet 40 mg PO DAILY 08/21/22 11/28/22 lorazepam 1 mg tablet 1 mg PO DAILY 08/21/22 11/28/22 Allergies Allergy/AdvReac Type Severity Reaction Status Date / Time ibuprofen Allergy Unknown Hives Verified 11/28/22 07:30 naproxen Allergy Unknown Hives Verified 11/28/22 07:30 morphine AdvReac Unknown Nausea Verified 11/28/22 07:30 fentanyl AdvReac Unknown Verified 11/28/22 07:30 Review of Systems Review of Systems: CONSTITUTIONAL: Chills denies fever, or sweats. CARDIOVASCULAR: Denies chest pain, palpitations, or edema. RESPIRATORY: Denies cough or dyspnea. GASTROINTESTINAL: Right lower quadrant abdominal pain and nausea, loose stools denies vomiting GENITOURINARY: Urinary hesitancy denies dysuria or hematuria. SKIN: Denies rash or itching. MUSCULOSKELETAL: Chronic back pain denies joint pain, or myalgia. NEUROLOGIC: Denies headache, numbness, dizziness, or weakness. PSYCHIATRIC: Denies anxiety or depression. 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, quit 07/2016 Nerve damage s/p back surgery (normal spontaneous vaginal delivery) Pulmonary nodule Surgical History Surgical History (Updated 11/28/22 @ 07:38 by Gonzalez Guaman MD) H/O bilateral salpingectomy History of back surgery L4-S1 History of cholecystectomy S/P laparoscopic assisted vaginal hysterectomy (LAVH) [place] teeth removed Family History Family History Mother Family history of gallbladder disease Family history of malignant neoplasm of kidney Family history of malignant neoplasm of thyroid Father Family history of liver disease Family history of kidney disease Other Cerebrovascular accident Family history of allergic disorder Social History Social History Smoking packs per day: 1 Smoking cigarettes per day: 20.0 Smoking status: Heavy tobacco smoker Tobacco type: cigarettes Alcohol intake: current Substance use: former Substance use type: opiates Gender identity (if verbalized by the patient): Female Exam Narrative: GENERAL: Well-developed, well-nourished, and in no acute distress. HEAD: Normocephalic, atraumatic. EYES: PERRLA and EOMI. ENT: Mucous membranes moist. CHEST: Clear to auscultation. No respiratory distress. No wheezes rales or rhonchi HEART: Regular rate and rhythm. No murmur heard. Normal peripheral pulses. ABDOMEN: Soft, tender to palpation in the right lower quadrant with some rebound but no guarding, Rovsing sign positive, nondistended, normal active bowel sounds. BACK: No CVA tenderness to palp EXTREMITIES: Normal range of motion. No edema. SKIN: Warm, dry, no rash. NEURO: No focal deficits. Alert and oriented x3. PSYCH: Normal mood and affect. Course Course Emergency Course: 08:40 -
[2022-11-28 07:51] LABS: Basophils Absolute Auto 0.12 K/mm3 (0.00-0.10); Basophils Percent Auto 1.4 % (0.0-1.0); Eosinophils Absolute Auto 0.38 K/mm3 (0.02-0.50); Eosinophils Percent Auto 4.4 % (1.0-6.0); Hematocrit 41.2 % (35.0-49.0); Immature Granulocyte Absolute 0.03 K/mm3 (0.00-0.00); Immature Granulocyte Percent A 0.4 % (0.0-0.0); Lymphocytes Absolute Auto 2.46 K/mm3 (1.10-4.50); Lymphocytes Percent Auto 28.7 % (18.0-42.0); Mean Corpuscular Hemoglobin 32.9 pg (27.0-31.0); Mean Corpuscular Volume 96.7 fL (78.0-102.0); Monocytes Absolute Auto 0.64 K/mm3 (0.10-0.90); Monocytes Percent Auto 7.5 % (2.0-11.0); Neutrophils Absolute Auto 4.9 K/mm3 (1.7-7.2); Neutrophils Percent Auto 57.6 % (50.0-70.0); Platelet Count Result 300 K/mm3 (150-420); Red Blood Count 4.26 M/mm3 (4.20-5.40); Red Cell Distribution Width 12.5 % (11.6-14.4); White Blood Count 8.6 K/mm3 (4.8-10.8)
[2022-11-28 07:54] LABS: Appearance Urine Clear (Clear); Bilirubin Urine Negative (Negative); Blood Urine Negative (Negative); Color Urine Yellow (Yellow); Glucose Urine UA Negative (Negative); Ketones Urine Negative (Negative); Leukocyte Esterase Ur 1+ LEU/UL (Negative); Nitrate Urine Negative (Negative); Protein Urine Negative (Negative); Specific Grav Ur 1.025 (1.010-1.020); Urobilinogen Urine 0.2 mg/dL (0.2-1.0)
[2022-11-28 07:58] LABS: Add Urine Microscopic? YES; RBC Urine None seen /hpf (0-2); WBC Urine 0-3 /hpf (0-3)
[2022-11-28 07:59] LABS: Bacteria Urine 1+ /hpf; Squamous Epithelial Cell Urine Moderate /hpf (Few)
[2022-11-28] MEDS: ONDANSETRON INJ 4 MG/2 ML VIAL IV PUSH (07:59)
[2022-11-28] MEDS: KETOROLAC 30 MG/ML VIAL (*BKC) IV PUSH (08:00)
[2022-11-28 08:01] VITALS: BP 108/79; PULSE 103; RESP 16; O2SAT 98
[2022-11-28] MEDS: SODIUM CHLORIDE 0.9% IV 1,000 ML 999 ML IV CONT (08:01)
[2022-11-28 08:05] LABS: Alanine Aminotransferase 34 U/L (14-59); Albumin Level 3.7 g/dL (3.4-5.0); Alkaline Phosphatase 60 U/L (46-116); Anion Gap 9 mmol/L (8-16); Aspartate Amino Transferase 14 U/L (15-37); Bilirubin,Total 0.4 mg/dL (0.00-1.00); Blood Urea Nitrogen 9 mg/dL (7-18); Calcium 8.7 mg/dL (8.5-10.1); Carbon Dioxide 28 mmol/L (21-32); Chloride 107 mmol/L (98-108); Estimated CRCL calculation 83 ml/min; Estimated Glomerular Filt Rate > 60; Glucose 94 mg/dL (70-99); Lipase 37 U/L (16-77); Osmolality Calculated 296 mOsm/kg (285-295); Potassium 3.8 mmol/L (3.5-5.1); Sodium 144 mmol/L (136-145); Total Protein 6.7 g/dL (6.4-8.2)
[2022-11-28 08:13] VITALS: O2SAT 98
[2022-11-28 08:28] VITALS: O2SAT 98
[2022-11-28 08:30] VITALS: O2SAT 100
--- NOTE | 2022-11-28 08:30 | PC.NURSE ---
Pt returns from CT. Monitoring resumed. Pt tolerated well. Pt reports improved pain and nausea. IV fluids infusing w/o s/s infiltration. PT voices no new needs at this time.
[2022-11-28 09:06] VITALS: BP 102/47; PULSE 66; RESP 16; TEMP 36.6; O2SAT 100
--- NOTE | 2022-11-28 09:07 | PC.NURSE ---
IV fluids completing at this time. Pt resting comfortably.
== END 2022-11-28 09:20 | disposition home or self-care (01) ==
PROVIDERS: Emergency Provider Preventive Medicine Aerospace Medicine; PCP Internal Medicine
DX: S39.011A Strain of muscle, fascia and tendon of abdomen, initial encounter (principal); R10.31 Right lower quadrant pain; X58.XXXA Exposure to other specified factors, initial encounter; J45.909 Unspecified asthma, uncomplicated; F41.9 Anxiety disorder, unspecified; F32.A Depression, unspecified; F17.210 Nicotine dependence, cigarettes, uncomplicated; Z79.51 Long term (current) use of inhaled steroids
CPT/HCPCS: 36415; 74177; 80053; 81001; 83690; 85025; 87086; 87088; 96361; 96374; 96375; 99284; J1885; J2405; J7030; Q9967

== ENCOUNTER 2023-01-16 15:46 | Outpatient (CLI) | payer OTHER, SELFPAY ==
--- NOTE | ~2023-01-16 | US_ITS ---
EXAMINATION: US venous doppler [facility] DATE: 01/16/2023 16:06 INDICATION: left calf pain and swelling . TECHNIQUE: Grayscale images without and with compression and Doppler images of the left lower extremi ty veins were obtained. COMPARISON: None FINDINGS: The left common femoral vein, profunda (deep) femoral vein, femoral vein, popliteal vein, peroneal v ein, posterior tibial veins, gastrocnemius vein, soleus, and greater saphenous vein are patent. IMPRESSION: 1. Patent left lower extremity veins. No evidence of deep venous thrombosis. Reviewed, dictated and finalized at location K.
== END 2023-01-16 15:47 | disposition home or self-care (01) ==
LOC: CHSIMG 15:49
PROVIDERS: PCP Internal Medicine; Visit Provider Internal Medicine
DX: M79.662 Pain in left lower leg (principal)
CPT/HCPCS: 93971

== ENCOUNTER 2023-03-24 01:40 | Day surgery (SDC) | payer OTHER, SELFPAY ==
[2023-03-24 09:08] VITALS: BP 114/75; PULSE 73; RESP 17; TEMP 35.9; O2SAT 100; BMI 33.2
[2023-03-24] MEDS: LACTATED RINGERS 1,000 ML 150 ML IV CONT (09:18)
--- NOTE | 2023-03-24 09:25 | WPDANESEPPF ---
Anes - Initial Pre Proc Eval Procedure: Operation Date: 03/24/23 10:00 Proposed Procedures p Esophagogastroduodenoscopy - Camilo Harris MD Date/Time: 03/24/23 09:25 Surgeon: Camilo Harris MD Pre Op Diagnosis: GERD Patient Data Age: 37 Gender: F Height: 1.65 m Weight: 90.5 kg Last Vital Signs Temp 35.9 C L 03/24/23 09:08 Pulse 73 03/24/23 09:08 Resp 17 03/24/23 09:08 BP 114/75 03/24/23 09:08 Pulse Ox 100 03/24/23 09:08 O2 Del Method Room Air 03/24/23 09:08 Allergies Allergy/AdvReac Type Severity Reaction Status Date / Time ibuprofen Allergy Unknown Hives Verified 03/24/23 09:06 naproxen Allergy Unknown Hives Verified 03/24/23 09:06 morphine AdvReac Unknown Nausea Verified 03/24/23 09:06 fentanyl AdvReac Unknown Verified 03/24/23 09:06 Home Medications Medication Instructions Recorded Confirmed Type albuterol sulfate 90 mcg/actuation 1 inhalation inhalation Q4H PRN SOB 06/21/19 03/24/23 History aerosol inhaler (ProAir HFA) diazepam 5 mg tablet 5 mg PO BID 09/24/19 03/24/23 History diclofenac sodium 75 mg 75 mg PO DAILY 08/21/22 03/24/23 History tablet,delayed release famotidine 40 mg tablet 40 mg PO BID 08/21/22 03/24/23 History lorazepam 1 mg tablet 1 mg PO DAILY PRN Anxiety 08/21/22 03/24/23 History cyclobenzaprine 5 mg tablet 5 mg PO DAILY PRN muscle spasms 03/14/23 03/24/23 History hydrocodone 5 mg-acetaminophen 325 2 tablet PO DAILY PRN Pain 03/14/23 03/24/23 History mg tablet ketorolac 10 mg tablet 10 mg PO BID PRN pain 03/14/23 03/24/23 History Patient hx anesthesia problems: none Family hx anesthesia problems: none Results Review: All pre-operative results and documents have been reviewed as part of the pre-operative evaluation. 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, quit 07/2016 Nerve damage s/p back surgery (normal spontaneous vaginal delivery) Pulmonary nodule Surgical History Surgical History H/O bilateral salpingectomy History of back surgery L4-S1 History of cholecystectomy S/P laparoscopic assisted vaginal hysterectomy (LAVH) [place] teeth removed Family History Family History Mother Family history of gallbladder disease Family history of malignant neoplasm of kidney Family history of malignant neoplasm of thyroid Father Family history of liver disease Family history of kidney disease Other Cerebrovascular accident Family history of allergic disorder Social History Social History Smoking packs per day: 1 Smoking cigarettes per day: 20.0 Smoking status: Heavy tobacco smoker Tobacco type: cigarettes Alcohol intake: current Drinks per week: 2 Substance use: current Substance use type: marijuana and opiates Other substance usage details: current- marijuana, former opiates Living arrangements: with family Gender identity (if verbalized by the patient): Female Spiritual care concerns: No Anes - Eval Final PreProcedure Day of Procedure 03/24/23 09:25 Patient weight: obese Heart: regular rate and rhythm Lungs: clear to auscultation Airway: Mallampati scale class II Neurological: alert and oriented Last oral intake: >/= 8 hours ASA classification: III Emergent: no Anesthetic plan: proceed Anesthesia type and monitoring: general GIVS and standard monitoring Results Review: All pre-operative results and documents have been reviewed as part of the pre-operative evaluation. Informed Consent: The patient's anesthetic plan and its attendant risks and benefits were discussed with the patient/family/POA. Questions were solicited and answers provided
--- NOTE | 2023-03-24 09:41 | PM.HPGS ---
History of Present Illness History of Present Illness Consent: Risks, benefits, and alternatives have been discussed and questions answered. Patient agrees to proceed with procedure. Chief complaint: GERD Narrative: Dionna Montemayor is a 37 year old female with intermittent n/v for 2 years, also sour taste in the mornings, using famotidine and pantoprazole but still symptomatic, she smokes marijuana, never had egd, noted that she is using diclofenac Review of Systems Constitutional: Constitutional: Denies headache(s) and Denies weakness Eyes: Eyes: Denies blurry vision ENT: Reports Normal hearing present, Denies headache(s) and Denies neck pain Cardiovascular: Cardiovascular: Denies chest pain and Denies dyspnea Respiratory: Respiratory: Denies dyspnea Gastrointestinal: Gastrointestinal: Reports no additional gastrointestinal complaints Genitourinary: Genitourinary: Denies dysuria Musculoskeletal: Musculoskeletal: Denies neck pain Integumentary/Breasts: Skin/Breast: Denies dry skin Neurologic: Reports Normal hearing present, Denies headache(s) and Denies weakness Psychiatric: Psychiatric: Denies anxiety Endocrine: Endocrine: Denies change in body appearance Hematologic/Lymphatic: Hematologic/Lymphatic: Denies easy bleeding Allergic/Immunologic: Allergic/Immunologic: Denies urticaria PMFSH Past Medical History Medical History (Updated 03/24/23 @ 09:43 by Camilo Harris MD) Anxiety Asthma Depression GERD (gastroesophageal reflux disease) 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, quit 07/2016 Nausea and vomiting in adult Nerve damage s/p back surgery NSAID long-term use (normal spontaneous vaginal delivery) Pulmonary nodule Surgical History Surgical History H/O bilateral salpingectomy History of back surgery L4-S1 History of cholecystectomy S/P laparoscopic assisted vaginal hysterectomy (LAVH) [place] teeth removed Family History Family History Mother Family history of gallbladder disease Family history of malignant neoplasm of kidney Family history of malignant neoplasm of thyroid Father Family history of liver disease Family history of kidney disease Other Cerebrovascular accident Family history of allergic disorder Social History Social History Smoking packs per day: 1 Smoking cigarettes per day: 20.0 Smoking status: Heavy tobacco smoker Tobacco type: cigarettes Alcohol intake: current Drinks per week: 2 Substance use: current Substance use type: marijuana and opiates Other substance usage details: current- marijuana, former opiates Living arrangements: with family Gender identity (if verbalized by the patient): Female Spiritual care concerns: No Meds Home Medications and Allergies Home Medications Medication Instructions Recorded Confirmed Type albuterol sulfate 90 mcg/actuation 1 inhalation inhalation Q4H PRN SOB 06/21/19 03/24/23 History aerosol inhaler (ProAir HFA) diazepam 5 mg tablet 5 mg PO BID 09/24/19 03/24/23 History diclofenac sodium 75 mg 75 mg PO DAILY 08/21/22 03/24/23 History tablet,delayed release famotidine 40 mg tablet 40 mg PO BID 08/21/22 03/24/23 History lorazepam 1 mg tablet 1 mg PO DAILY PRN Anxiety 08/21/22 03/24/23 History cyclobenzaprine 5 mg tablet 5 mg PO DAILY PRN muscle spasms 03/14/23 03/24/23 History hydrocodone 5 mg-acetaminophen 325 2 tablet PO DAILY PRN Pain 03/14/23 03/24/23 History mg tablet ketorolac 10 mg tablet 10 mg PO BID PRN pain 03/14/23 03/24/23 History Allergies Allergy/AdvReac Type Severity Reaction Status Date / Time ibuprofen Allergy Unknown Hives Verified 03/24/23 09:06 naproxen Allergy Unknown Hives Verified 03/24/23 09:06 morphine AdvReac Unknown Nausea Verified
[2023-03-24 09:57] VITALS: BP 95/73; PULSE 76; RESP 21; O2SAT 100
[2023-03-24 10:07] VITALS: BP 109/66; PULSE 74; RESP 16; O2SAT 100
[2023-03-24 10:17] VITALS: BP 109/84; PULSE 67; RESP 15; O2SAT 100
== END 2023-03-24 10:26 | disposition home or self-care (01) ==
PROVIDERS: PCP Internal Medicine; Visit Provider Internal Medicine Gastroenterology
PROC: 0DJ08ZZ Inspection of Upper Intestinal Tract, Via Natural or Artificial Opening Endoscopic (ICD-10-PCS; CPT 43235; principal; 2023-03-24 10:00)
DX: K21.9 Gastro-esophageal reflux disease without esophagitis (principal); K20.0 Eosinophilic esophagitis; R11.2 Nausea with vomiting, unspecified; K29.70 Gastritis, unspecified, without bleeding; F41.9 Anxiety disorder, unspecified; J45.909 Unspecified asthma, uncomplicated; F32.A Depression, unspecified; R91.1 Solitary pulmonary nodule; F17.210 Nicotine dependence, cigarettes, uncomplicated; Z79.51 Long term (current) use of inhaled steroids; Z79.891 Long term (current) use of opiate analgesic; F12.90 Cannabis use, unspecified, uncomplicated; E66.9 Obesity, unspecified; Z68.33 Body mass index [BMI] 33.0-33.9, adult
CPT/HCPCS: 43239; 88305; J2704; J7120

== ENCOUNTER 2023-04-20 08:47 | Outpatient (CLI) | payer OTHER, SELFPAY ==
--- NOTE | ~2023-04-20 | XR_ITS ---
EXAMINATION: XR barium swallow DATE: 04/20/2023 10:02 INDICATION: Dysphagia TECHNIQUE: The patient drank thick barium, gas-producing crystals, and thin barium. Fluoroscopy of th e hypopharynx and esophagus was performed. Fluoroscopy exposure time was 2.2 minutes. The DAP for thi s procedure was 27.470 Gycm2. COMPARISON: None. FINDINGS: There is no mass or stricture of the esophagus. Esophageal motility is normal. There is no hiatal hernia. There was no gastroesophageal reflux with provocative maneuvers. IMPRESSION: 1. Unremarkable examination. Reviewed, dictated and finalized at location [facility].
== END 2023-04-20 08:48 | disposition home or self-care (01) ==
LOC: CHSIMG 08:48
PROVIDERS: PCP Internal Medicine; Visit Provider Internal Medicine
DX: R13.10 Dysphagia, unspecified (principal)
CPT/HCPCS: 74220

== ENCOUNTER 2023-08-05 14:33 | Outpatient (CLI) | payer OTHER, SELFPAY ==
[2023-08-05 15:23] LABS: Basophils Absolute Auto 0.09 K/mm3 (0.00-0.10); Basophils Percent Auto 0.7 % (0.0-1.0); Eosinophils Absolute Auto 0.74 K/mm3 (0.02-0.50); Hematocrit 44.3 % (35.0-49.0); Hemoglobin 14.7 g/dL (12.0-15.0); Immature Granulocyte Absolute 0.04 K/mm3 (0.00-0.00); Immature Granulocyte Percent A 0.3 % (0.0-0.0); Lymphocytes Absolute Auto 2.35 K/mm3 (1.10-4.50); Lymphocytes Percent Auto 19.2 % (18.0-42.0); Mean Corpuscular HGB Conc 33.2 g/dL (32.0-36.0); Mean Corpuscular Hemoglobin 32.2 pg (27.0-31.0); Mean Corpuscular Volume 96.9 fL (78.0-102.0); Mean Platelet Volume 9.8 fl (9.2-11.8); Monocytes Absolute Auto 0.54 K/mm3 (0.10-0.90); Monocytes Percent Auto 4.4 % (2.0-11.0); Neutrophils Absolute Auto 8.5 K/mm3 (1.7-7.2); Neutrophils Percent Auto 69.4 % (50.0-70.0); Platelet Count Result 320 K/mm3 (150-420); Red Blood Count 4.57 M/mm3 (4.20-5.40); Red Cell Distribution Width 12.7 % (11.6-14.4); White Blood Count 12.2 K/mm3 (4.8-10.8)
[2023-08-05 15:52] LABS: Alanine Aminotransferase 42 U/L (14-59); Albumin Level 3.8 g/dL (3.4-5.0); Alkaline Phosphatase 68 U/L (46-116); Anion Gap 10 mmol/L (8-16); Aspartate Amino Transferase 14 U/L (15-37); Bilirubin,Total 0.3 mg/dL (0.00-1.00); Blood Urea Nitrogen 9 mg/dL (7-18); Calcium 8.6 mg/dL (8.5-10.1); Carbon Dioxide 27 mmol/L (21-32); Chloride 104 mmol/L (98-108); Estimated Glomerular Filt Rate > 60; Free T3 2.74 pg/mL (2.18-3.98); Free T4 Free Thyroxine 0.89 ng/dL (0.76-1.46); Glucose 89 mg/dL (70-99); Osmolality Calculated 289 mOsm/kg (285-295); Potassium 3.5 mmol/L (3.5-5.1); Sodium 141 mmol/L (136-145); Thyroid Stimulating Hormone 1.77 uIU/mL (0.36-3.74); Total Protein 6.8 g/dL (6.4-8.2)
[2023-08-05 16:12] LABS: CRP < 0.5 mg/dL (0.0-0.9)
[2023-08-10 20:53] LABS: ANCA Screen Negative (Negative); Myeloperoxidase Ab <1.0 AI (<1.0); Proteinase-3 Ab <1.0 AI (<1.0); S cerevisiae Ab (IgA) 5.4 U (<=20.0); S cerevisiae Ab (IgG) 4.5 U (<=20.0)
== END 2023-08-05 14:34 | disposition home or self-care (01) ==
LOC: CHSLAB 14:36
PROVIDERS: PCP Internal Medicine; Visit Provider Internal Medicine
DX: K52.9 Noninfective gastroenteritis and colitis, unspecified (principal)
CPT/HCPCS: 36415; 80053; 84439; 84443; 84481; 85025; 86036; 86140; 86671; 87045; 87177; 87209; 87324; 87427; 87449

== ENCOUNTER 2023-09-13 08:18 | Outpatient (CLI) | payer OTHER, SELFPAY ==
--- NOTE | ~2023-09-13 | CT_ITS ---
EXAMINATION: CT abdomen pelvis w con DATE: 09/13/2023 08:54 INDICATION: Left lower quadrant abdominal pain TECHNIQUE: Computed tomography (CT) of the abdomen and pelvis was performed with 100 CC Omnipaque 350 intravenous contrast. Automated exposure control and iterative reconstruction technique were employe d. Exam dose: 916.06 mGy-cm total exam DLP. COMPARISON: 11/28/2022 CT abdomen pelvis FINDINGS: 7 mm right lower lobe calcified pulmonary granuloma. Focal discoid atelectasis or scarring of the anterior basilar segment left lower lobe at the greater fissure. The lung bases are otherwise clear. Approximately 9 mm nonspecific focal area of hypodensity in the right hepatic lobe appears stable sin ce 11/28/2022; differential diagnosis includes hemangioma, focal fatty infiltration, cyst, less likely metastasis. No other hepatic space-occupying mass lesion is detected. Status post cholecystectomy. No bile duct or pancreatic duct dilatation. Normal splenic size. No adrenal mass lesion. No renal mass lesion other than upper pole approximately 9.5 mm right renal cyst. No urinary tract ca lculus or hydroureteronephrosis. Normal caliber of the abdominal aorta. No intraperitoneal or retroperitoneal or pelvic mass lesion or adenopathy or ascites. Normal appendix. No bowel obstruction, bowel wall thickening, pneumatosis or intraperitoneal free air . Urinary bladder is unremarkable. Status post hysterectomy. 1.3 cm left ovarian corpus luteum cyst. Status post anterior and interbody surgical fusion at L5-S1 posterior surgical fusion at L4-S1. No suspicious osteolytic or osteoblastic lesions are noted. IMPRESSION: Discoid atelectasis or scarring, anterior basilar segment, left lower lobe Status post cholecystectomy Nonspecific 9 mm hypoattenuating lesion of right hepatic lobe, stable since 11/28/2022; differential di agnosis given above. If further evaluation is desired, consider hepatic MRI examination 0.5 mm right renal cyst Normal appendix Status post hysterectomy 1.3 cm left corpus luteum ovarian cyst Postoperative changes of the lumbosacral spine Reviewed, dictated and finalized at [facility]. Reviewed, dictated and finalized at location [facility]. [employer] C[employer]TER IMPRESSION: Discoid atelectasis or scarring, anterior basilar segment, left lo wer lobe Status post cholecystectomy Nonspecific 9 mm hypoattenuating lesion of right hepatic lobe, stable since 11/28; differential diagnosis given above. If further evaluation is desired, co nsider hepatic MRI examination 0.5 mm right renal cyst Normal appendix Status post hysterectomy 1.3 cm left corpus luteum ovarian cyst Postoperative changes of the lumbosacral spine
[2023-09-13 09:38] LABS: Hemoglobin 14.2 g/dL (12.0-15.0); Mean Corpuscular HGB Conc 32.3 g/dl (32-36); Mean Corpuscular Hemoglobin 31.3 pg (26-34); Mean Corpuscular Volume 97.1 fl (80-100); Platelet Count Result 269 k/mm3 (150-375); Red Blood Count 4.53 M/mm3 (4.2-5.4); Red Cell Distribution Width 13.1 % (11.5-14.5); White Blood Count 9.3 K/mm3 (4.5-10.0)
[2023-09-13 09:52] LABS: Alanine Aminotransferase 47 U/L (6-35); Albumin Level 3.9 g/dL (3.5-5.1); Alkaline Phosphatase 83 U/L (38-126); Anion Gap 4 mmol/L (8-16); Aspartate Amino Transferase 40 U/L (14-36); Bilirubin,Total 0.7 mg/dL (0.2-1.3); Blood Urea Nitrogen 5 mg/dL (7-17); CRP 1.5 mg/dL (<1.0); Carbon Dioxide 26 mmol/L (22-30); Chloride 104 mmol/L (98-107); Estimated Glomerular Filt Rate > 60; Glucose 87 mg/dL (65-110); Potassium 4.5 mmol/L (3.4-5.0); Sodium 134 mmol/L (137-145)
[2023-09-13 10:25] LABS: Erythrocyte Sedimentation Rate 12 mm/hr (0-20)
== END 2023-09-13 08:19 | disposition home or self-care (01) ==
LOC: ANHIMG 08:22
PROVIDERS: PCP Internal Medicine; Visit Provider Nurse Practitioner Family
DX: R10.32 Left lower quadrant pain (principal); R19.7 Diarrhea, unspecified; Z90.49 Acquired absence of other specified parts of digestive tract; N28.1 Cyst of kidney, acquired; N83.202 Unspecified ovarian cyst, left side
CPT/HCPCS: 36415; 74177; 80053; 85027; 85652; 86140; Q9967

== ENCOUNTER 2023-09-14 08:46 | Outpatient (CLI) | payer OTHER, SELFPAY ==
[2023-09-14 10:08] LABS: Toxigenic C. Diff NEGATIVE (NEGATIVE)
== END 2023-09-14 08:47 | disposition home or self-care (01) ==
LOC: ANHLAB 08:49
PROVIDERS: PCP Internal Medicine; Visit Provider Nurse Practitioner Family
DX: R10.32 Left lower quadrant pain (principal); R19.7 Diarrhea, unspecified
CPT/HCPCS: 87493

== ENCOUNTER 2023-09-27 07:40 | Outpatient (CLI) | payer OTHER, SELFPAY ==
--- NOTE | ~2023-09-27 | MR_ITS ---
EXAMINATION: MR abdomen wo/w con DATE: 09/27/2023 09:06 INDICATION: Nonspecific right hepatic lobe lesion TECHNIQUE: Magnetic resonance imaging (MRI) of the abdomen was performed without and with 19 mL Multi alla intravenous contrast. Sequences included coronal T2-weighted SS-FSE, coronal and axial FS 2D-F IESTA, axial STIR FSE, axial T2-weighted SS-FSE, axial T2-weighted FS SS-FSE, axial diffusion-weighte d SE, axial dual-echo T1-weighted FSPGR, and axial and coronal T1-weighted LAVA. Postcontrast axial T 1-weighted LAVA images were obtained in a time course. Postcontrast coronal T1-weighted LAVA images w ere obtained. COMPARISON: CT dated 09/13/2023 FINDINGS: Heart size is normal. No pericardial or pleural effusion. Mild diffuse hepatic steatosis with signal dropout on opposed phase imaging. 1.1 cm T2 hyperintense lesion in the right hepatic lobe which demon strates heterogeneous lobular contrast-enhancement on the portal venous phase of imaging with diffuse enhancement persisting on the five-minute delayed images and possibly visible due to prominent motio n artifact on the 10 minute delayed images. Enhancement pattern would be most consistent with a heman gioma. No other hepatic lesions identified. Surgical clips the gallbladder fossa consistent with prio r cholecystectomy. No intra or extrahepatic biliary ductal dilation the common bile duct measuring <3 mm in maximal diameter. Pancreas, spleen, bilateral adrenal glands and left kidney are normal. 8 mm T2 hyperintense nonenhancing cyst at the upper pole the right kidney. Visualized portions of bowels a re unremarkable with no obstruction. No pathologically enlarged abdominal lymphadenopathy. Metallic m agnetic field artifact associated with bilateral vertical mike and pedicle screw fixation for lower candace mbar posterior spinal fusion. IMPRESSION: 1. 1.1 cm T2 hyperintense enhancing lesion with enhancement pattern most consistent with a hemangioma . Reviewed, dictated and finalized at location B. [employer] AGENT IMPRESSION: 1. 1.1 cm T2 hyperintense enhancing lesion with enhancement pattern most consis tent with a hemangioma.
== END 2023-09-27 07:41 | disposition home or self-care (01) ==
PROVIDERS: PCP Internal Medicine; Visit Provider Nurse Practitioner
DX: R93.2 Abnormal findings on diagnostic imaging of liver and biliary tract (principal); K76.9 Liver disease, unspecified
CPT/HCPCS: 74183; A9577

== ENCOUNTER 2023-10-10 01:40 | Day surgery (SDC) | payer OTHER, SELFPAY ==
[2023-10-02 13:23] VITALS: BMI 33.3
--- NOTE | 2023-10-06 10:54 | SUR.PREOP ---
Patient called regarding upcoming procedure. Reviewed preop instructions, appointment times, and procedure prep.
--- NOTE | 2023-10-10 14:32 | WPDANESEPPF ---
Anes - Initial Pre Proc Eval Procedure: Operation Date: 10/10/23 15:00 Proposed Procedures p Colonoscopy - Camilo Harris MD Date/Time: 10/10/23 14:32 Surgeon: Camilo Harris MD Pre Op Diagnosis: Left Lower quad pain,diarrhea,melena Patient Data Age: 38 Gender: F Height: 1.65 m Weight: 90.9 kg Allergies Allergy/AdvReac Type Severity Reaction Status Date / Time ibuprofen Allergy Unknown Hives Verified 10/10/23 14:30 naproxen Allergy Unknown Hives Verified 10/10/23 14:30 morphine AdvReac Unknown Nausea Verified 10/10/23 14:30 fentanyl AdvReac Unknown Verified 10/10/23 14:30 Home Medications Medication Instructions Recorded Confirmed Type albuterol sulfate 90 mcg/actuation 1 inhalation inhalation Q4H PRN SOB 06/21/19 10/10/23 History aerosol inhaler (ProAir HFA) diazepam 5 mg tablet 5 mg PO HS 09/24/19 10/10/23 History cyclobenzaprine 5 mg tablet 5 mg PO DAILY PRN muscle spasms 03/14/23 10/10/23 History hydrocodone 5 mg-acetaminophen 325 2 tablet PO DAILY PRN Pain 03/14/23 10/10/23 History mg tablet ketorolac 10 mg tablet 10 mg PO DAILY pain 03/14/23 10/10/23 History lansoprazole 30 mg capsule,delayed 30 mg PO BID #60 caps 06/08/23 10/10/23 Rx release (Prevacid) cholestyramine (with sugar) 4 gram 4 g PO BID diarrhea #348.6 grams 09/14/23 10/10/23 Rx oral powder (Questran) dicyclomine 20 mg tablet 20 mg PO QID PRN abdominal pain 09/14/23 10/10/23 Rx #60 tabs Patient hx anesthesia problems: none Family hx anesthesia problems: none Results Review: All pre-operative results and documents have been reviewed as part of the pre-operative evaluation. 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, quit 07/2016 Left lower quadrant abdominal pain Liver lesion Nausea Nausea and vomiting in adult Nerve damage s/p back surgery NSAID long-term use (normal spontaneous vaginal delivery) Pulmonary nodule Surgical History Surgical History H/O bilateral salpingectomy History of back surgery L4-S1 History of cholecystectomy S/P laparoscopic assisted vaginal hysterectomy (LAVH) [place] teeth removed Family History Family History Mother Family history of gallbladder disease Family history of malignant neoplasm of kidney Family history of malignant neoplasm of thyroid Father Family history of liver disease Family history of kidney disease Other Cerebrovascular accident Family history of allergic disorder Social History Social History Smoking packs per day: 1 Smoking cigarettes per day: 20.0 Smoking status: Current every day smoker Tobacco type: cigarettes Alcohol intake: current Drinks per week: 2 Substance use: current Substance use type: marijuana Other substance usage details: current- marijuana, former opiates Living arrangements: with family Gender identity (if verbalized by the patient): Female Spiritual care concerns: No Anes - Eval Final PreProcedure Day of Procedure 10/10/23 14:32 Patient weight: obese Heart: regular rate and rhythm Lungs: clear to auscultation Airway: Mallampati scale class II Neurological: alert and oriented Last oral intake: >/= 8 hours ASA classification: III Emergent: no Anesthetic plan: proceed Anesthesia type and monitoring: general GIVS and standard monitoring Results Review: All pre-operative results and documents have been reviewed as part of the pre-operative evaluation. Informed Consent: The patient's anesthetic plan and its attendant risks and benefits were discussed with the patient/family/POA. Questions were
[2023-10-10 14:34] VITALS: BP 108/71; PULSE 88; RESP 19; TEMP 36.1; O2SAT 100; BMI 33.3
[2023-10-10] MEDS: LACTATED RINGERS 1,000 ML 150 ML IV CONT (14:38)
--- NOTE | 2023-10-10 14:55 | PM.HPGS ---
History of Present Illness History of Present Illness Consent: Risks, benefits, and alternatives have been discussed and questions answered. Patient agrees to proceed with procedure. 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, quit 07/2016 Left lower quadrant abdominal pain Liver lesion Loose stools Nausea Nausea and vomiting in adult Nerve damage s/p back surgery NSAID long-term use (normal spontaneous vaginal delivery) Pulmonary nodule Surgical History Surgical History H/O bilateral salpingectomy History of back surgery L4-S1 History of cholecystectomy S/P laparoscopic assisted vaginal hysterectomy (LAVH) [place] teeth removed Family History Family History Mother Family history of gallbladder disease Family history of malignant neoplasm of kidney Family history of malignant neoplasm of thyroid Father Family history of liver disease Family history of kidney disease Other Cerebrovascular accident Family history of allergic disorder Social History Social History Smoking packs per day: 1 Smoking cigarettes per day: 20.0 Smoking status: Current every day smoker Tobacco type: cigarettes Alcohol intake: current Drinks per week: 2 Substance use: current Substance use type: marijuana Other substance usage details: current- marijuana, former opiates Living arrangements: with family Gender identity (if verbalized by the patient): Female Spiritual care concerns: No Meds Home Medications and Allergies Home Medications Medication Instructions Recorded Confirmed Type albuterol sulfate 90 mcg/actuation 1 inhalation inhalation Q4H PRN SOB 06/21/19 10/10/23 History aerosol inhaler (ProAir HFA) diazepam 5 mg tablet 5 mg PO HS 09/24/19 10/10/23 History cyclobenzaprine 5 mg tablet 5 mg PO DAILY PRN muscle spasms 03/14/23 10/10/23 History hydrocodone 5 mg-acetaminophen 325 2 tablet PO DAILY PRN Pain 03/14/23 10/10/23 History mg tablet ketorolac 10 mg tablet 10 mg PO DAILY pain 03/14/23 10/10/23 History lansoprazole 30 mg capsule,delayed 30 mg PO BID #60 caps 06/08/23 10/10/23 Rx release (Prevacid) cholestyramine (with sugar) 4 gram 4 g PO BID diarrhea #348.6 grams 09/14/23 10/10/23 Rx oral powder (Questran) dicyclomine 20 mg tablet 20 mg PO QID PRN abdominal pain 09/14/23 10/10/23 Rx #60 tabs Allergies Allergy/AdvReac Type Severity Reaction Status Date / Time ibuprofen Allergy Unknown Hives Verified 10/10/23 14:30 naproxen Allergy Unknown Hives Verified 10/10/23 14:30 morphine AdvReac Unknown Nausea Verified 10/10/23 14:30 fentanyl AdvReac Unknown Verified 10/10/23 14:30 Vital Signs Vital Signs - 24 hr 10/10/23 14:34 Temperature 97.0 F L Pulse Rate 88 Respiratory Rate 19 Blood Pressure 108/71 Pulse Oximetry 100 Oxygen Delivery Room Air Exam Const: General: comfortable and no acute distress HENMT: Face/Nose/Sinus: Normal nares present Eyes: General: appearance normal, both eyes and all related structures Neck: Neck: no JVD Resp: Auscultation: clear to auscultation bilaterally Cardio: Rate: regular rate Rhythm: regular rhythm GI: Inspection: non-distended GI Palp: Yes Soft to palpation Skin: General skin exam: normal color Neuro: General:
[2023-10-10 15:09] VITALS: BP 105/61; PULSE 93; RESP 25; O2SAT 92
[2023-10-10 15:19] VITALS: BP 98/67; PULSE 88; RESP 18; O2SAT 100
[2023-10-10 15:29] VITALS: BP 99/78; PULSE 80; RESP 18; O2SAT 100
== END 2023-10-10 15:36 | disposition home health service (06) ==
PROVIDERS: PCP Internal Medicine; Visit Provider Internal Medicine Gastroenterology
PROC: 0DJD8ZZ Inspection of Lower Intestinal Tract, Via Natural or Artificial Opening Endoscopic (ICD-10-PCS; CPT 45378; principal; 2023-10-10 15:00)
DX: K52.832 Lymphocytic colitis (principal); F41.9 Anxiety disorder, unspecified; J45.909 Unspecified asthma, uncomplicated; F32.A Depression, unspecified; K21.9 Gastro-esophageal reflux disease without esophagitis; F12.90 Cannabis use, unspecified, uncomplicated; F17.210 Nicotine dependence, cigarettes, uncomplicated; E66.9 Obesity, unspecified; Z68.33 Body mass index [BMI] 33.0-33.9, adult; Z79.51 Long term (current) use of inhaled steroids; Z79.891 Long term (current) use of opiate analgesic; Z98.890 Other specified postprocedural states; Z90.49 Acquired absence of other specified parts of digestive tract; Z80.51 Family history of malignant neoplasm of kidney; Z80.8 Family history of malignant neoplasm of other organs or systems; Z82.49 Family history of ischemic heart disease and other diseases of the circulatory system
CPT/HCPCS: 45380; 88305; J2704; J7120

== ENCOUNTER 2023-10-27 09:51 | Emergency (ER) | payer OTHER, SELFPAY ==
--- NOTE | 2023-10-27 09:53 | ED.GIBLEED ---
HPI - GI Bleed General Chief complaint: GI Bleed Stated complaint: rectal bleeding Time Seen by Provider: 10/27/23 09:52 Source: patient Mode of arrival: ambulatory Limitations: no limitations History of Present Illness HPI Narrative: patient is a 38-year-old female with rectal pain and bleeding for the past week. Bleeding has increased so she came to the ER for evaluation. This is bright red blood per rectum. MD complaint: blood on toilet paper Onset (ago): week(s) (1) Pain Consistency: constant Severity: mild Relieving factors: none Exacerbating factors: none Context: other ( Colonoscopy 2 weeks ago was done and she was diagnosed with colitis by GI) Associated symptoms: denies other symptoms Treatments Prior to Arrival: none Related Data Home Medications Medication Instructions Recorded Confirmed albuterol sulfate 90 mcg/actuation 1 inhalation inhalation Q4H PRN SOB 06/21/19 10/27/23 aerosol inhaler (ProAir HFA) diazepam 5 mg tablet 5 mg PO HS 09/24/19 10/27/23 cyclobenzaprine 5 mg tablet 5 mg PO DAILY PRN muscle spasms 03/14/23 10/27/23 hydrocodone 5 mg-acetaminophen 325 2 tablet PO DAILY PRN Pain 03/14/23 10/27/23 mg tablet ketorolac 10 mg tablet 10 mg PO DAILY pain 03/14/23 10/27/23 budesonide 3 mg 3 mg PO BID 10/27/23 10/27/23 capsule,delayed,extended release Allergies Allergy/AdvReac Type Severity Reaction Status Date / Time ibuprofen Allergy Unknown Hives Verified 10/27/23 10:09 naproxen Allergy Unknown Hives Verified 10/27/23 10:09 morphine AdvReac Unknown Nausea Verified 10/27/23 10:09 fentanyl AdvReac Unknown Verified 10/27/23 10:09 Review of Systems Review of Systems: All systems reviewed & are unremarkable except as noted in HPI and below Constitutional: Constitutional: Reports no additional constitutional complaints Eyes: Eyes: Reports no additional eye complaints ENT: Reports system reviewed and no additional complaints, except as documented Cardiovascular: Cardiovascular: Reports no additional cardiovascular complaints Respiratory: Respiratory: Reports no additional respiratory complaints Gastrointestinal: Gastrointestinal: Reports no additional gastrointestinal complaints Genitourinary: Genitourinary: Reports no additional female genitourinary complaints Musculoskeletal: Musculoskeletal: Reports no additional musculoskeletal complaints Integumentary/Breasts: Skin/Breast: Reports system reviewed and no additional complaints, except as docu Neurologic: Reports system reviewed and no additional complaints, except as documented Psychiatric: Psychiatric: Reports no additional psychiatric complaints Endocrine: Endocrine: Reports no additional endocrine complaints Hematologic/Lymphatic: Hematologic/Lymphatic: Reports no additional hematologic/lymphatic complaints Allergic/Immunologic: Allergic/Immunologic: Reports no additional allergic/immunologic complaints PMFSH Past Medical History Medical History Anxiety Asthma Depression GERD (gastroesophageal reflux disease) 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, quit 07/2016 Left lower quadrant abdominal pain Liver lesion Loose stools Nausea Nausea and vomiting in adult Nerve damage s/p back surgery NSAID long-term use (normal spontaneous vaginal delivery) Pulmonary nodule Surgical History Surgical History H/O bilateral salpingectomy History of back surgery L4-S1 History of cholecystectomy S/P laparoscopic assisted vaginal hysterectomy (LAVH) [place] teeth removed Family History Family History Mother Family history of gallbladder disease Family history of malignant neoplasm of kidney Family history of malignant neoplasm of thyroid Father Family history of liver disease Family history of kidney disease Other
[2023-10-27 09:55] VITALS: BP 115/78; PULSE 93; RESP 18; TEMP 36.6; O2SAT 97
== END 2023-10-27 10:48 | disposition home or self-care (01) ==
LOC: CHSED 10:36
PROVIDERS: Emergency Provider Emergency Medicine; PCP Internal Medicine
DX: K64.5 Perianal venous thrombosis (principal); J45.909 Unspecified asthma, uncomplicated; F41.9 Anxiety disorder, unspecified; F17.210 Nicotine dependence, cigarettes, uncomplicated; F12.90 Cannabis use, unspecified, uncomplicated; Z79.51 Long term (current) use of inhaled steroids; Z79.891 Long term (current) use of opiate analgesic
CPT/HCPCS: 99283

== ENCOUNTER 2024-10-31 13:31 | Outpatient (RCR) | payer BC, SELFPAY ==
[2024-10-31 13:30] VITALS: BMI 36.3
== END 2025-01-20 14:05 | disposition home or self-care (01) ==
LOC: ANHDMC 13:31
PROVIDERS: Visit Provider Internal Medicine
DX: E66.812 Obesity, class 2 (principal); Z71.3 Dietary counseling and surveillance
CPT/HCPCS: 97802

== ENCOUNTER 2024-11-25 11:22 | Outpatient (CLI) | payer BC, SELFPAY ==
--- NOTE | ~2024-11-25 | XR_ITS ---
CHEST RADIOGRAPH, PA AND LATERAL CLINICAL HISTORY: COUGH X 2 WEEKS/L COMPARISON: 08/28/2015 TECHNIQUE: PA and lateral views of the chest. FINDINGS The cardiomediastinal silhouette is unremarkable. The lungs are clear. Visualized osseous structures and soft tissues are unremarkable. IMPRESSION: No focal infiltrate or effusion. Reviewed, dictated and finalized at location A.
--- OUTSIDE RECORDS SUMMARY | 2024-11-25 13:25 | XMS_ITS | Clinical Summary ---
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 ~40 % - 0 ongoing Plan of Treatment Referrals To Diagnosis Pain Management [facility] - [address], [place] - Unilateral primary osteoarthritis, right hip Note: consent for R femoral and obturator nerve articular branch block [no steroid] under fluoro Last Documented On 4 5:33PM ; [facility] Instructions to patient Intervention and counseling on cessation of tobacco use : Patient recieved smoking cessation handout Last Documented On 4 1:16PM ; [facility] Education and Decision Aids were provided during visit for: Pill Count: Hydrocodone. [fi lled by PCP] Last Documented On 4 1:45PM ; [facility] Assessments Includes: Assessments from this encounter Findings - [M16.11 - Unilateral primary osteoarthritis, right hip] Localized primary osteoarthritis of right hip - Last Documented On 01/04/2024 1:47PM ; [facility] - [M25.551 - Pain in right hip] Arthralgia of the right pelvis/hip/femur - Last Documented On 01/04/2024 1:47PM ; [facility] - [M70.61 - Trochanteric bursitis, right hip] Right trochanteric bursitis - Last Documented On 01/04/2024 1:47PM ; [facility] - [M70.62 - Trochanteric bursitis, left hip] Left trochanteric bursitis - Last Documented On 01/04/2024 1:47PM ; [facility] - [M96.1 - Postlaminectomy syndrome, not elsewhere classified] Lumbar postlaminectomy syndrome - Last Documented On 01/04/2024 1:47PM ; [facility] - [M24.151 - Other articular cartilage disorders, right hip] Acetabular labrum tear - Last Documented On 01/04/2024 1:47PM ; [facility] Instructions Includes: Instructions from this encounter Instructions to patient Intervention and counseling on cessation of tobacco use : Patient recieved smoking cessation handout Last Documented On 1:16PM ; [facility] Education and Decision Aids were provided during visit for: Pill Count: Hydrocodone. [fi lled by PCP] Last Documented On 4 1:45PM ; [facility] Medical Equipment - Implanted Devices Includes: Current Devices No Medical Equipment Recorded Medications Includes: Medications discussed during this encounter and other current Medications Current Medications (continue as prescribed) Lansoprazole 30 MG Oral Caps ule Delayed Release 11/14/2023 Provider: HIGINIO BARRAGAN MD Diagnosis: Last Documented On 4 1:41PM By LIGN BABB ; [facility] Montelukast Sodium 10 MG Oral Tablet 11/13/2023 Prov ider: ZAKI CRANE MD Diagnosis: Last Documented On 4 1:41PM By LING BABB ; [facility] Budesonide 3 MG Oral Capsule Delayed Release Particles 11/07/2023 Provider: Diagnosis: 3 IN THE MORNING Last Documented On 4 1:41PM By LING BABB ; [facility] Hydrocortisone 2.5% External Cream 10/27/2023 Provid er: Diagnosis: Last Documented On 4 1:41PM By LING BABB ; [facility] Cyclobenzaprine HCl 5 MG Oral Tablet 10/24/2023 Prov ider: ZAKI CRANE MD Diagnosis: Last Documented On 4 1:41PM By LING BABB ; [facility] HYDROcodone-Acetaminophen 5-325 MG Oral Tablet 024 Provider: ZAKI CRANE MD Diagnosis: Last Documented On 4 1:41PM By LING BABB ; [facility] Ketorolac Tromethamine 10 MG Oral Tablet 09/08/2023 Provider: ZAKI CRANE MD Diagnosis: Last Documented On 4 1:41PM By LING BABB ; [facility] Medications Administered Includes: Administered Medications from this encounter No Administered Medications Recorded Vital Signs Includes: Vital Signs from this encounter Vital Name 01/04/2024 01:19P Blood Pressure Sitting R 110/74 BP Cuff Size Regular Pulse Rate-Sitting (bpm) 73 Temp-Temporal 96.8 Height (in) 65 Weight (lb) 207 Body Mass Index 34.4 Body Surface Area (m2) 2.0 Pain Level 6 Oxygen Saturation (%) 97 Last Documented: On 01/04/2024 1:23PM ; [facility] Results Includes: Results discussed during this encounter No Results Recorded For Specified Dates History of Present Illness Includes: History of Present Illness from this encounter HPI MARCIN MCKEON is a 38 year old female. - Allergy list reviewed - Problem list reviewed - Medication reconciliation performed - Medication list reviewed - Prescription Drug Monitoring Program website checked. 12/29/2023 - How much of the medication are you taking a day? 1 -2 a week if needed - Last dose of medication? last week - Pain is continuous - Pain aggravated when sleeping - Pain radiating to both shoulders - Neck pain radiating to both sides - Abdominal pain radiates to both sides - Groin pain radiating to both sides - No vertigo Discussion: Patient of [place] here for FU After right hip steroid injection On December 19. Additionally, she had bilateral trochanteric bursa injections on November 28. She states that each of these only lasted for about two weeks and gave her about 50% relief of her pain. Pain is back to baseline at this time. Previously the injection she had about a year ago lasted a little longer but she states still after two months her pain returned. She has never been offered an orthopedic surgical consultation. However, at this time she would like to avoid surgery. Pain is significant enough to cause issues with ADLs and activity level through out the day. In order to limit use of opioid analgesics, We discussed consideration of a right hip femoral and obturator nerve ablation. She understands she will have to undergo a series of blocks and have good results before proceeding with the ablation. Risk/benefit discussed. She would like to proceed. Physical therapy increased pain in the past. I would not recommend any physical therapy at this time. FIRST VISIT 11/29/23 Patient is a 38-year-old female referred for evaluation and treatment of hip pain. She complains of long-standing, chronic hip pain. History of consultation with orthopedic surgeon and pain management. She has been given hip injections as well as trochanteric bursa injections in the past with significant pain relief and improved activity tolerance. Last injection was done in [place] approximately a year ago. She would like to avoid traveling to [place] for injections. MRI right hip indicates labral tear. She also has a history of lumbar fusion. She does feel the low back is aggravated when the hip pain is worse. Overall, her low back pain improved after surgery. She utilizes marijuana for additional relief. She does receive a small prescription for hydrocodone to be used as needed. She is hesitant to utilize opioids routinely and fear of addiction. History of high-dose narcotics in the past and has been off of them to that degree for approximately 9 years. She attempted physical therapy in July. She feels this caused more pain. There is some pain over the left trochanteric bursa as well. We can provide trochanteric bursa injections today and will place an order for right hip steroid injection under ultrasound guidance. Imaging: All relevant imaging available was personally reviewed with the patient today with the following tests and results noted: MRI right hip 08/22/22: relatively symmetric bilateral acetabular labral tears. Persistent mild trochanteric bursitis with mild tendinopathy. X-ray right hip 10/12/21: mild osteoarthritis of the hips. X-ray lumbar spine 11/29/21 anterior interbody fusion L4-5 and L5-S1 with plate and screw fusion L5-S1 and posterior mike and pedicle fusion from L4-S1. Hardware appears intact. Social History Description Last Updated Current smoker 11/29/2023 Last Documented On 4 1:16PM ; [facility] Alcohol 11/29/2023 Last Documented On 4 1:16PM ; [facility] Not using drugs 11/29/2023 Last Documented On 4 1:16PM ; [facility] Smoking Status Unknown Procedures and Surgical History Includes: Procedures from this encounter Procedures Code Diagnosis Performing Provider Service L ocation Service Date intervention and counseling on cessation of tobacco use : Patient recieved smoking cessation handout 4000F Last Documented On 4 1:16PM ; [facility] use of tobacco assessment performed 1000F Last Documented On 4 1:16PM ; [facility] standardized depression screening: negative for symptoms 3351F Last Documented On 4 1:16PM ; [facility] review of medications documented 1160F Last Documented On 4 1:16PM ; [facility] screening for adult depression: impressi on and score 0 Last Documented On 4 1:16PM ; [facility] Clinical summary provided to patient ~ Patient understands and agrees with treatment plan. Questions answered Last Documented On 4 1:16PM ; [facility] SOAPP-R: total score 4 Last Documented On 4 1:16PM ; [facility] Medical History Includes: Medical History addressed during this encounter Description Last Updated Denies a fear of falling. 01/04/2024 Last Documented On 4 1:47PM ; [facility] Has had no fall in the last 12 months. 0 01/04/2024 Last Documented On 4 1:47PM ; [facility] Mild pain 11/29/2023 Last Documented On 4 1:16PM ; [facility] Family History Includes: Family History addressed during this encounter Description Last Updated Maternal history of family history of ki dney disease 11/29/2023 Last Documented On 4 1:16PM ; [facility] Review of Systems Includes: Review of Systems from this encounter Systemic: No systemic symptoms other than noted. Head: No head symptoms other then noted. Neck: No neck pain. Otolaryngeal: No otolaryngeal symptoms other than noted. Cardiovascular: No chest pain or discomfort. Pulmonary: No dyspnea. Gastrointestinal: Heartburn. No nausea. Abdominal pain, bowel movement frequency has recently changed, obstipation which is painful, and diarrhea throughout the day. No constipation. Genitourinary: No urinary loss of control. Endocrine: No endocrine symptoms other than noted. Hematologic: No easy bleeding and no tendency for easy bruising. Musculoskeletal: Back pain, hip joint pain, and pain localized to one or more joints. Neurological: No fainting passing out with needles or medical procedures, no motor disturbances, and no sensory disturbances. Psychological: No psychological symptoms other than noted. Skin: No skin symptoms other than noted. Mental Status Includes: Mental Status from this encounter No Mental Status Recorded Functional Status Includes: Functional Status from this encounter No Functional Status Recorded Physical Exam Includes: Physical Exam from this encounter Allergies Includes: Active Allergies Substance Type Reaction Onset Date Resolved Date Statu s Morphine Sulfate Allergy Vomiting 11/29/2023 Ac tive Last Documented On 4 1:18PM ; [facility] Ibuprofen Allergy Hives / Urticaria 11/29/2023 A ctive Last Documented On 4 1:18PM ; [facility] fentaNYL Allergy Vomiting 11/29/2023 Active Last Documented On 4 1:18PM ; [facility] Encounters Encounter Provider Location Date Check-In Time Check-Out Time Diagnosis PAIN MANAGEMENT FOLLOW UP LING WOO APRN-ASPEN, CONTROL CENTER OPERATOR-BC [facility] 024 1:03PM 1:36PM Postlaminectomy Syndrome Lumbar,Osteoarthri tis Localized Primary Hip Right,Arthralgia - Pelvis / Hip / Femur Right,Bursitis Trochanteric Right,Bursitis Trochanteric Left,Injury of Lower Extremity Hip Acetabular Labrum Tear Insurance Includes: Active Insurance Policies Plan Name Member ID Group # Subscriber Relationship Effect blaine Dates 1 - R [id number] MARCIN MCKEON Self Clinical Notes Includes: Clinical Notes from this encounter * Progress note Date Encounter Last Documented by 01/04/2024 PAIN MANAGEMENT FOLLOW UP Last d ocumented on 01/04/2024; 1:47 PM, LING WOO APRN-ASPEN, CONTROL CENTER OPERATOR-BC; [facility] Chief Complaint The Chief Complaint is: Follow up Right hip injections. 40 % - 0 ongoing. History of Present Illness MARCIN MCKEON is a 38 year old female. - Allergy list reviewed - Problem list reviewed - Medication reconciliation performed - Medication list reviewed - Prescription Drug Monitoring Program website checked. 12/29/2023 - How much of the medication are you taking a day? 1 -2 a week if needed - Last dose of medication? last week - Pain is continuous - Pain aggravated when sleeping - Pain radiating to both shoulders - Neck pain radiating to both sides - Abdominal pain radiates to both sides - Groin pain radiating to both sides - No vertigo Discussion: Patient of [place] here for FU After right hip steroid injection On December 19. Additionally, she had bilateral trochanteric bursa injections on November 28. She states that each of these only lasted for about two weeks and gave her about 50% relief of her pain. Pain is back to baseline at this time. Previously the injection she had about a year ago lasted a little longer but she states still after two months her pain returned. She has never been offered an orthopedic surgical consultation. However, at this time she would like to avoid surgery. Pain is significant enough to cause issues with ADLs and activity level through out the day. In order to limit use of opioid analgesics, We discussed consideration of a right hip femoral and obturator nerve ablation. She understands she will have to undergo a series of blocks and have good results before proceeding with the ablation. Risk/benefit discussed. She would like to proceed. Physical therapy increased pain in the past. I would not recommend any physical therapy at this time. FIRST VISIT 11/29/23 Patient is a 38-year-old female referred for evaluation and treatment of hip pain. She complains of long-standing, chronic hip pain. History of consultation with orthopedic surgeon and pain management. She has been given hip injections as well as trochanteric bursa injections in the past with significant pain relief and improved activity tolerance. Last injection was done in [place] approximately a year ago. She would like to avoid traveling to [place] for injections. MRI right hip indicates labral tear. She also has a history of lumbar fusion. She does feel the low back is aggravated when the hip pain is worse. Overall, her low back pain improved after surgery. She utilizes marijuana for additional relief. She does receive a small prescription for hydrocodone to be used as needed. She is hesitant to utilize opioids routinely and fear of addiction. History of high-dose narcotics in the past and has been off of them to that degree for approximately 9 years. She attempted physical therapy in July. She feels this caused more pain. There is some pain over the left trochanteric bursa as well. We can provide trochanteric bursa injections today and will place an order for right hip steroid injection under ultrasound guidance. Imaging: All relevant imaging available was personally reviewed with the patient today with the following tests and results noted: MRI right hip 08/22/22: relatively symmetric bilateral acetabular labral tears. Persistent mild trochanteric bursitis with mild tendinopathy. X-ray right hip 10/12/21: mild osteoarthritis of the hips. X-ray lumbar spine 11/29/21 anterior interbody fusion L4-5 and L5-S1 with plate and screw fusion L5-S1 and posterior mike and pedicle fusion from L4-S1. Hardware appears intact. Current Medication - Budesonide 3 MG Oral Capsule Delayed Release Particles as directed 3 IN THE MORNING, 56 days, 0 refills - Cyclobenzaprine HCl 5 MG Oral Tablet as needed 10 days, 0 refills - HYDROcodone-Acetaminophen 5-325 MG Oral Tablet as needed 5 days, 0 refills - Hydrocortisone 2.5% External Cream as directed 30 days, 0 refills - Ketorolac Tromethamine 10 MG Oral Tablet as needed 10 days, 0 refills - Lansoprazole 30 MG Oral Capsule Delayed Release 1 capsule daily 30 days, 0 refills - Montelukast Sodium 10 MG Oral Tablet as needed 30 days, 0 refills Past Medical/Surgical History Reported: Medical: Mild pain. Physical Trauma: Has had no fall in the last 12 months. and Denies a fear of falling. Social History Tobacco use: Current smoker. Alcohol: Alcohol. Drug Use: Not using drugs. Allergies - fentaNYL Reaction: Vomiting - Ibuprofen Reaction: Hives / Urticaria - Morphine Sulfate Reaction: Vomiting Family History Maternal: Kidney disease Review Of Systems Systemic: No systemic symptoms other than noted. Head: No head symptoms other then noted. Neck: No neck pain. Otolaryngeal: No otolaryngeal symptoms other than noted. Cardiovascular: No chest pain or discomfort. Pulmonary: No dyspnea. Gastrointestinal: Heartburn. No nausea. Abdominal pain, bowel movement frequency has recently changed, obstipation which is painful, and diarrhea throughout the day. No constipation. Genitourinary: No urinary loss of control. Endocrine: No endocrine symptoms other than noted. Hematologic: No easy bleeding and no tendency for easy bruising. Musculoskeletal: Back pain, hip joint pain, and pain localized to one or more joints. Neurological: No fainting passing out with needles or medical procedures, no motor disturbances, and no sensory disturbances. Psychological: No psychological symptoms other than noted. Skin: No skin symptoms other than noted. Physical Findings - Vitals taken 01/04/2024 01:19 pm BP-Sitting R 110/74 mmHg BP Cuff Size Regular Pulse Rate-Sitting 73 bpm Temp-Temporal 96.8 F Height 65 in Weight 207 lbs Body Mass Index 34.4 kg/m2 Pain Level 6 Pain Level Note Lumbar and Right hip Oxygen Saturation 97 % Musculoskeletal System: General/bilateral: Musculoskeletal Scales: Value Lumbar oswestry score 24 Psychiatric: Psychiatric: Value PHQ9 score: 0 Constitutional: Well developed. Well nourished. In no acute distress. HEENT: NC/AT. Anicteric. Clear Conjunctiva. PERRLA. MM's pink/moist. No discharge via nares. No lesions of EAC. No discharge of EAC. Neck supple. No lymphadenopathy in cervical chain bilaterally. CVS: No peripheral edema. Peripheral pulses palpable in all extremities. Pulmonary: Normal chest expansion bilaterally. Spine/MSK: Tenderness bilateral trochanteric bursa. Tenderness anterior right hip. Mild pain with right hip flexion. Positive Marcelino maneuver on the right. Mild lumbar tenderness. Gait: Not antalgic. No steppage gait. No Trendelenburg gait. No circumspected gait pattern. Heel walk normal. Toe walk normal. Tandem gait normal. Neuro: Awake. Alert. Oriented x3. No sensory deficit. No motor deficit. Psych: No apparent distress. Mood normal. Affect normal. No pain behaviors. Skin: No rash. Normal pigmentation. Normal temperature Tests Educational Testing: Questionnaires PHQ-9: Value SOAPP-R: total score 4 Assessment - [M16.11 - Unilateral primary osteoarthritis, right hip] Localized primary osteoarthritis of right hip - [M25.551 - Pain in right hip] Arthralgia of the right pelvis/hip/femur - [M70.61 - Trochanteric bursitis, right hip] Right trochanteric bursitis - [M70.62 - Trochanteric bursitis, left hip] Left trochanteric bursitis - [M96.1 - Postlaminectomy syndrome, not elsewhere classified] Lumbar postlaminectomy syndrome - [M24.151 - Other articular cartilage disorders, right hip] Acetabular labrum tear Test Conclusions PHQ-9 Score: 0 Date:11/29/23 BPI Score: Date: MiDAS Score: Date: SOAPP-R Score: 4 LOW Date:11/29/23 OSWESTRY Score:12=24% Date:11/29/23 Therapy - Intervention and counseling on cessation of tobacco use: Patient recieved smoking cessation handout. - Clinical summary provided to patient Patient understands and agrees with treatment plan. Questions answered. Counseling/Education - Pill Count: Hydrocodone. [filled by PCP] Discussed Schedule for R hip nerve block. If successful will confirm w/ second block and then proceed to ablation. FU w/ [place] after procedure. Risks, benefits and alternatives (including doing nothing) were discussed with the patient who agreed to proceed with interventional treatment despite risk and agreement that potential benefits outweighs the chance of significant harm. Plan StartCited - Unilateral primary osteoarthritis, right hip Referral: Pain Management Instructions: consent for R femoral and obturator nerve articular branch block [no steroid] under fluoro EndCited Practice Management Use of tobacco assessment performed Review of medications documented; Standardized depression screening: negative for symptoms and for adult impression and score 0; [87240] Established outpatient, medically appropriate H&P, moderate level decision making, 30+ minutes. A total of [45 ] minutes were spent on this patient's evaluation, as above, with greater than 50% of this time spent in direct [id number] counseling and coordination of care. Results of this interaction were communicated directly to the patient's referring and/or primary care provider. Multiple documents have been reviewed today in conjunction with her evaluation including online prescription monitoring database, laboratory data, imaging studies, previous specialist provider notes and primary care provider notes. For all patients on acute or chronic opioids, ongoing need for opioid analgesia is assessed at each visit with consideration of discontinuation or wean to lowest effective dose when possible and appropriate. Contents of this document have been edited for correctness, but may be subject to typographical or pier hand errors. Verify all diagnoses, medications, dosages, and patient instructions with patient and/or the originator of this document. Health Reminders - Assess BMI satisfied 01/04/2024. - Assess Tobacco Use satisfied 01/04/2024. - Depression Screening satisfied 01/04/2024. - Follow up plan for Depression Screening satisfied 01/04/2024. - Smoking & Tobacco Cessation Intervention and Counseling satisfied 01/04/2024.
--- OUTSIDE RECORDS SUMMARY | 2024-11-25 13:25 | XMS_ITS | Clinical Summary ---
Author Organization [facility] Address [address] [place] [id number] Care Team Providers Care Car Dropper Name Role Phone Anton Burrell MD Primary Care Provider [phone] Allergies Active Allergy Reactions Criticality Noted Date Comments Ibuprofen Rash Low 09/27/2017 Naproxen Rash Low 09/27/2017 Medications HYDROcodone-acet aminophen 5-325 MG tablet Take 1 tablet by mouth 4 (four) times daily as needed. 11/10/2021 Active ketorolac 10 MG tablet Take 1 tablet by mouth 2 (two) times daily. 11/15/2021 Active fluticasone furoate-vilanter ol (BREO ELLIPTA) 200-25 MCG/INH inhaler Inhale 1 puff into the lungs daily. 09/27/2017 Active famotidine 40 MG tablet Take 1 tablet by mouth daily. 11/10/2021 Active diazePAM 5 MG tablet Take 1 tablet by mouth daily as needed. 08/16/2021 Active diclofenac EC 75 MG tablet Take 1 tablet by mouth as needed. 11/11/2021 Active cyclobenzaprine 10 MG tablet Take 1 tablet by mouth as needed. 09/27/2017 Active albuterol sulfate HFA (PROAIR HFA) 108 (90 Base) MCG/ACT inhaler Inhale 1-2 puffs into the lungs. 09/27/2017 Active Active Problems Problem Noted Date Diagnosed Date Tear of right acetabular labrum, initial encount er 11/30/2021 Family History Medical History Relation Comments No Known Problems Brother 1 No Known Problems Brother 2 Alcohol Abuse Father Cancer Mother No Known Problems Sister Relation Status Comments Brother 1 Alive Brother 2 Alive Father Mother Sister Alive Social History Tobacco Use Types Packs/Day Years Used Date Smoking Tobacco: Every Day Cigarettes 1 20 Smokeless Tobacco: Never Alcohol Use Standard Drinks/Week Comments Not Currently 5 (1 standard drink = 0.6 oz pur e alcohol) Comments Unknown Sex and Gender Information Value Date Recorded Sex Assigned at Not on file Legal Sex Female 7:15 PM CDT Gender Identity Not on file Sexual Orientation Not on file Last Filed Vital Signs Vital Sign Reading Time Taken Comments Blood Pressure 118/72 10/24/2017 12:05 PM CDT Pulse 92 10/24/2017 12:05 PM CDT Temperature - - Respiratory Rate - - Oxygen Saturation - - Inhaled Oxygen Concentration - - Weight 85.3 kg (188 lb) 11/29/2021 4:43 PM CDT Height 167.6 cm (5' 6 ) 11/29/2021 4:43 PM CDT Body Mass Index 30.34 11/29/2021 4:43 PM CDT Plan of Treatment Health Maintenance Due Date Last Done Comments Annual Physical 1986 Hepatitis C 2001 DTaP, Tdap and Td Vaccines ( 1 - Tdap) 2002 Hepatitis B Vaccines (1 of 3 - 19+ 3-dose series) 2002 Pneumococcal Vaccine: Pediat rics (0 to 5 Years) and At-Risk Patients (6 to 49 Years) (1 of 2 - PCV) 2002 Mammogram Screening 2023 COVID-19 Vaccine ( - 2023-2 5 season) 2024 HPV Vaccines Aged Out No longer eligi ble based on patient's age to complete this topic Meningococcal B Vaccine Aged Out No l onger eligible based on patient's age to complete this topic Meningococcal Vaccine Aged Out No contreras carlyle eligible based on patient's age to complete this topic RSV Immunizations Under 20 Months Aged Out No longer eligible based on patient's age to complete this topic Care Teams Car Dropper Relationship Specialty Start Date End Date Anton Burrell MD [address] [place] [address] PCP - General INTERNAL MEDICINE 11/15/21
--- OUTSIDE RECORDS SUMMARY | 2024-11-25 13:25 | XMS_ITS | Encounter Summary ---
Author Organization [facility] Address [address] [place] [id number] Care Team Providers Care All Source Collection Manager Name Role Phone Anton Burrell MD Primary Care Provider [phone] Encounter Details Date Type Department Care Team (Late st Contact Info) Description 01/05/2019 Abstract [facility] CONVERSION [address] [place] [address] , Generic Conversion, Social History Tobacco Use Types Packs/Day Years Used Date Smoking Tobacco: Never Assessed Comments Unknown Sex and Gender Information Value Date Recorded Sex Assigned at Not on file Legal Sex Female 7:15 PM CDT Gender Identity Not on file Sexual Orientation Not on file documented as of this encounter Plan of Treatment Not on file documented as of this encounter Visit Diagnoses Not on filedocumented in this encounter Care Teams All Source Collection Manager Relationship Specialty Start Date End Date Anton Burrell MD [address] [place] [address] PCP - General INTERNAL MEDICINE 11/15/21 documented as of this encounter
--- OUTSIDE RECORDS SUMMARY | 2024-11-25 13:25 | XMS_ITS | Clinical Summary ---
Author Organization [facility] Address [address] [facility] [place] [address] Care Team Providers Care Engineer Intern Name Role Phone Anton Burrell MD Primary Care Provider [phone] Source Comments [facility],non-owned Affiliates and Associated Physician Practices is amultiple site organization consisting of ambulatory clinics and hospital sitesin [place], [place], [place] and [place]. This disclosure is being madepursuant to the Care Everywhere program and may not contain all information available regarding this patient. Last updated 18.[facility] Allergies Active Allergy Reactions Criticality Noted Date Comments Fentanyl Nausea and/or Vomiti ng,Shortness of Breath,Vomiting High 09/03/2016 Ibuprofen Urticaria,Itching,Rash Medium 09/03/2004 Morphine Vomiting 11/29/2023 Medications * Be aware that medications may not be up to date on this document. Alwaysverify current medications with the patient. budesonide (Entocort EC) [address] capsule Take 3 (three) capsules by mouth once daily Active buPROPion XL 24hr (Wellbutrin-XL ) 150 MG tablet Take 1 (one) tablet by mouth once daily 06/07/20 24 Active cyclobenzaprin e (Flexeril) 5 MG tablet Cyclobenzaprine HCl 5 MG Oral Tablet QTY: 20 tablet Days: 10 Refills: 0 Written: 10/24/23 Patient Instructions: 10/24/19 24 Active diazePAM (Valium) 5 MG tablet Take 1 (one) tablet by mouth once daily as needed Active HYDROcodone-ac etaminophen ([place]) 5-325 MG tablet HYDROcodone-Acetami nophen 5-325 MG Oral Tablet QTY: 10 tablet Days: 5 Refills: 0 Written: 10/24/23 Patient Instructions: 10/24/19 24 Active hydrocortisone (Hytone) 2.5 % cream Hydrocortisone 2.5% External Cream QTY: 28.35 Days: 30 Refills: 0 Written: 10/27/23 Patient Instructions: 10/27/19 24 Active ketorolac (Toradol) 10 MG tablet Ketorolac Tromethamine 10 MG Oral Tablet QTY: 30 tablet Days: 10 Refills: 0 Written: 09/08/23 Patient Instructions: 09/08/19 24 Active lansoprazole (Prevacid) 30 MG capsule Take 1 (one) capsule by mouth 06/09/20 24 Active montelukast (Singulair) 10 MG tablet Montelukast Sodium 10 MG Oral Tablet QTY: 30 tablet Days: 30 Refills: 0 Written: 11/13/23 Patient Instructions: 11/13/19 24 Active naltrexone (Revia) 50 MG tablet Take 1 (one) tablet by mouth once daily 06/07/20 24 Active nystatin (Mycostatin) 241403 UNIT/ML suspension APPLY TO AFFECTED AREAS 3 TO 4 TIMES PER DAY 01/08/20 24 Active Active Problems No known active problems Encounters Date Type Department Care Team Description 09/09/2024 10:31 AM BILL OF MATERIALS CLERK - 09/09/2024 11:59 PM [facility] Hospital Encounter [facility] - Radiology [address] [id number] Brendan Flores, [employer]DER Discharge Disposition: Home or Self Care 09/09/2024 10:30 AM BILL OF MATERIALS CLERK Office Visit [facility] - Orthopedic Surgery [address] [phone] Brendan Flores, [employer] Lumbar radiculopathy (Primary Dx); History of lumbar spinal fusion 09/09/2024 Travel 09/03/2024 Orders Only [facility] - Orthopedic Surgery [address] [phone] Brendan Flores, [employer] Pain of right hip 09/02/2024 Travel from Last 3 Months Family History Medical History Relation Name Comments None Known Brother None Known Father None Known Maternal Grandfather None Known Maternal Grandmother None Known Mother None Known Other None Known Paternal Grandfather None Known Paternal Grandmother None Known Sister Relation Name Status Comments Brother Father Maternal Grandfather Maternal Grandmother Mother Other Paternal Grandfather Paternal Grandmother Sister Social History Tobacco Use Types Packs/Day Years Used Date Smoking Tobacco: Every Day Cigarettes Smokeless Tobacco: Never Alcohol Use Standard Drinks/Week Comments Yes 0 (1 standard drink = 0.6 oz pur e alcohol) occ PHQ-2 Answer Date Recorded Patient Health Questionnaire-2 Score 3 09/03/2024 Comments Unknown Sex and Gender Information Value Date Recorded Sex Assigned at Not on file Legal Sex Female 9:25 AM BILL OF MATERIALS CLERK Gender Identity Not on file Sexual Orientation Not on file Last Filed Vital Signs Vital Sign Reading Time Taken Comments Blood Pressure - - Pulse - - Temperature - - Respiratory Rate - - Oxygen Saturation - - Inhaled Oxygen Concentration - - Weight 93 kg (205 lb) 09/09/2024 10:32 AM BILL OF MATERIALS CLERK Height 167.6 cm (5' 6 ) 09/09/2024 10:32 AM BILL OF MATERIALS CLERK Body Mass Index 33.09 09/09/2024 10:32 AM BILL OF MATERIALS CLERK Plan of Treatment Health Maintenance Due Date Last Done Comments LIPID TESTING 1983 MAMMOGRAM 1983 PAP SMEAR 1983 HIV SCREENING 1998 HEPATITIS C SCREENING 07/01/2001 DTAP/TDAP/TD VACCINES (1 - Tdap) 2002 HEPATITIS B VACCINE (1 of 3 - 19+ 3-dose series) 2002 PNEUMOCOCCAL VACCINE (1 of 2 - PCV) 2002 COVID-19 VACCINE (1 - 2023-2 5 season) 2024 DEPRESSION SCREENING 07/31/2024 SCREENING FOR DIABETES 09/09/2024 INFLUENZA VACCINE (Season Ended) 2025 04/30/2016, 04/30/2014, 09/25/2013 ZOSTER VACCINE (1 of 2) 2033 HIB VACCINE Aged Out No longer eligi ble based on patient's age to complete this topic HPV VACCINE Aged Out No longer eligi ble based on patient's age to complete this topic MENINGOCOCCAL (Group B) VACCINE SHARED DECISION-MAKING Aged Out No longer eligible based on patient's age to complete this topic MENINGOCOCCAL GROUPS A/C/Y/W VACCINE Aged Out No longer eligible b ased on patient's age to complete this topic Procedures Procedure Name Priority Date/Time Associated Diagnosis Comments XR PELVIS W RIGHT HIP 2VW Routine 09/09/2024 10:34 AM BILL OF MATERIALS CLERK Pain of right hip from Last 3 Months Results * XR Pelvis W Right Hip 2Vw (09/09/2024 10:34 AM BILL OF MATERIALS CLERK) Anatomical Region Laterality Modality Pelvis Computed Radiogr aphy 09/09/2024 1:24 PM BILL OF MATERIALS CLERK Narrative 09/09/2024 1:25 PM BILL OF MATERIALS CLERK EXAM: XR PELVIS W RIGHT HIP 2VW INDICATION: M25.551: Pain in right hip COMPARISON: None FINDINGS: No acute fracture or dislocation. The hip joint spaces appear maintained. Spinal fusion hardware present. > Interpreting Provider: Joel Bailey MD on 09/09/2024 1:25 PM Procedure Note Joel Bailey MD - 09/09/2024 EXAM: XR PELVIS W RIGHT HIP 2VW INDICATION: M25.551: Pain in right hip COMPARISON: None FINDINGS: No acute fracture or dislocation. The hip joint spaces appearmaintained. Spinal fusion hardware present. > Interpreting Provider: Joel Bailey MD on 09/09/2024 1:25 PM Brendan Flores [employer] DIAGNOSTIC IMAGING ORDER FANY Final Result from Last 3 Months Insurance [employer] Member Subscriber Plan / Payer (Ef fective 2024-Present) Name:Marcin Montemayor Member ID:[id number] Relation to Subscriber:Spouse Name:ROHIT MONTEMAYOR Subscriber ID:[id number] Date of :1978 (Home) Address: [address] [place], [place] Payer ID:[id number] (NAIC) Type:PPO Address: [facility] [address] [place] [address] Care Teams Engineer Intern Relationship Specialty Start Date End Date Anton Burrell MD [address] [place] [address] PCP - General Internal Medicine 09/09/24
--- OUTSIDE RECORDS SUMMARY | 2024-11-25 13:26 | XMS_ITS ---
Author Organization [facility] Address [address] [place] [address] Phone Care Team Providers Care Lobbyist Name Role Phone ZAKI CRANE MD Primary Care Provider [phone] Plan of Treatment Referrals To Diagnosis Pain Management [facility] - [address] [place] [address] - Unilateral primary osteoarthritis, right hip Note: consent for R femoral and obturator nerve articular branch block [no steroid] under fluoro Last Documented On 4 5:33PM ; [facility] Instructions to patient Intervention and counseling on cessation of tobacco use : Patient recieved smoking cessation handout Last Documented On 4 1:16PM ; [facility] Intervention and counseling on cessation of tobacco use : Patient recieved smoking cessation handout Last Documented On 4 11:14AM ; [facility] Education and Decision Aids were provided during visit for: Pill Count: Hydrocodone. [fi lled by PCP] Last Documented On 4 1:45PM ; [facility] Assessments Includes: Assessments for all patient encounters Findings Encounter Date [M24.151 - Other articular c artilage disorders, right hip] acetabular labrum tear PAIN MANAGEMENT FOLLOW UP with LING WOO APRN-ASPEN ALTITUDE CHAMBER TECHNICIAN-BC 01/04/2024 Last Documented On 4 1:47PM ; [facility] Arthralgia of the right pelvis/hip/femur PAIN MANAGEMENT FOLLOW UP with LING WOO APRN-FPRaheem ALTITUDE CHAMBER TECHNICIAN-BC 01/04/2024 Last Documented On 4 1:47PM ; [facility] Left trochanteric bursitis PAIN MANAGEME NT FOLLOW UP with LING Berger AMNA QUEEN'S COUNSEL-FPA, ALTITUDE CHAMBER TECHNICIAN-BC 01/04/2024 Last Documented On 4 1:47PM ; [facility] Localized primary osteoarthr itis of right hip PAIN MANAGEMENT FOLLOW UP with LING Berger AMNA QUEEN'S COUNSEL-FPA, ALTITUDE CHAMBER TECHNICIAN-BC 01/04/2024 Last Documented On 4 1:47PM ; [facility] Lumbar postlaminectomy syndrome PAIN MAN AGEMENT FOLLOW UP with LING Berger AMNA QUEEN'S COUNSEL-FPA, ALTITUDE CHAMBER TECHNICIAN-BC 01/04/2024 Last Documented On 4 1:47PM ; [facility] Right trochanteric bursitis PAIN MANAGEM ENT FOLLOW UP with LING Berger AMNA QUEEN'S COUNSEL-FPA, ALTITUDE CHAMBER TECHNICIAN-BC 01/04/2024 Last Documented On 4 1:47PM ; [facility] Arthralgia of the right pelvis/hip/femur INJECTI ON with MAGALIE GALVEZ MD 12/20/2023 Last Documented On 4 10:42AM ; [facility] Osteoarthritis of right hip INJECTION with BALAJI GALVEZ MD 12/20/2023 Last Documented On 4 10:42AM ; [facility] [M24.151 - Other articular c artilage disorders, right hip] acetabular labrum tear PAIN MANAGEMENT [facility] 11[facility]29/2023 Last Documented On 4 11:52AM ; [facility] Arthralgia of the right pelvis/hip/femur PAIN MANAGEMENT [facility] 11/29/2023 Last Documented On 4 11:52AM ; [facility] Left trochanteric bursitis PAIN MANAGEME NT NEW CONSULT with SHAHID [facility]URER[facility] 11/29/2023 Last Documented On 4 11:52AM ; [facility] Localized primary osteoarthr itis of right hip PAIN MANAGEMENT NEW CONSULT with SHAHID MAURERBC 11/29/2023 Last Documented On 4 11:52AM ; [facility] Lumbar postlaminectomy syndrome PAIN MAN AGEMENT NEW CONSULT with SHAHID RICHARD 11/29/2023 Last Documented On 4 11:52AM ; [facility] Right trochanteric bursitis PAIN MANAGEM ENT NEW CONSULT with SHAHID RICHARD 11/29/2023 Last Documented On 4 11:52AM ; [facility] Instructions Includes: Instructions for all patient encounters Instructions to patient Intervention and counseling on cessation of tobacco use : Patient recieved smoking cessation handout Last Documented On 4 1:16PM ; [facility] Intervention and counseling on cessation of tobacco use : Patient recieved smoking cessation handout Last Documented On 4 11:14AM ; [facility] Education and Decision Aids were provided during visit for: Pill Count: Hydrocodone. [fi lled by PCP] Last Documented On 4 1:45PM ; [facility] Medical Equipment - Implanted Devices Includes: Current and historical Devices No Medical Equipment Recorded Medications Includes: Current and historical Medications Current Medications (continue as prescribed) Lansoprazole 30 MG Oral Caps ule Delayed Release 11/14/2023 Provider: HIGINIO BARRAGAN MD Diagnosis: Last Documented On 4 1:41PM By LING BABB ; [facility] Montelukast Sodium 10 MG Oral Tablet 11/13/2023 Prov ider: ZAKI CRANE MD Diagnosis: Last Documented On 4 1:41PM By LING BABB ; [facility] Budesonide 3 MG Oral Capsule Delayed Release Particles 11/07/2023 Provider: Diagnosis: 3 IN THE MORNING Last Documented On 4 1:41PM By LING BABB ; [facility] Hydrocortisone 2.5% External Cream 10/27/2023 Provid er: Diagnosis: Last Documented On 4 1:41PM By LING BABB ; [facility] Cyclobenzaprine HCl 5 MG Oral Tablet 10/24/2023 Prov ider: ZAKI CRANE MD Diagnosis: Last Documented On 4 1:41PM By LING BABB ; [facility] HYDROcodone-Acetaminophen 5-325 MG Oral Tablet 024 Provider: ZAKI CRANE MD Diagnosis: Last Documented On 4 1:41PM By LING BABB ; [facility] Ketorolac Tromethamine 10 MG Oral Tablet 09/08/2023 Provider: ZAKI CRANE MD Diagnosis: Last Documented On 4 1:41PM By LING BABB ; [facility] Medications Administered Includes: Administered Medications in patient's chart Medications Administered Diagnosis Date Pro vider Sensorcaine-MPF 0.5% IJ SOLN 12/20/2023 MAGALIE GALVEZ MD Given by Dr. Galvez Last Documented On 4 10:41AM By Meri Zhou RN ; [facility] Triamcinolone Acetonide 40 MG/ML IJ SUSP 12/20/2023 MAGALIE GALVEZ MD Given by Dr. Galvez Last Documented On 4 10:42AM By Meri Zhou RN ; [facility] Sodium Chloride (PF) 0.9% IJ SOLN 024 MAGALIE GALVEZ MD Last Documented On 4 10:43AM By Meri Zhou RN ; [facility] Xylocaine-MPF 1% IJ SOLN 12/20/2023 ENOCH GALVEZ MD Given by Dr. Galvez Last Documented On 4 10:44AM By Meri Zhou RN ; [facility] Vital Signs Includes: Vital Signs from 11/26/2023 through 11/25/2024 Vital Name 01/04/2024 01:19P 12/20/2023 10:39A 11/28 11:08A Blood Pressure Sitting R 110/74 120/70 BP Cuff Size Regular Regular Pulse Rate-Sitting (bpm) 73 76 103 Temp-Temporal 96.8 96.1 Height (in) 65 65 65 Weight (lb) 207 207 206 Body Mass Index 34.4 34.4 34.3 Body Surface Area (m2) 2.0 2 2 Pain Level 6 7 4 Oxygen Saturation (%) 97 97 98 Blood Pressure Sitting L 122/87 Pulse Rhythm Regular Respiration Rate (breaths/min) 20 Temp-Tympanic (F) 97.6 Last Documented: On 01/04/2024 1:23PM ; [facility] On 12/20/2023 10:40AM ; [facility] On 11/29/2023 11:11AM ; [facility] Results Includes: Results from 11/26/2023 through 11/25/2024 Drugs of abuse screen [facility] Ordered by SHAHID CODY [facility]- on Collected: Reported: 11/29/2023 11:05 Last Documented On 4 11:06AM ; [facility] Reviewed on 11/29/2023; All test results are final unless otherwise noted. Internal QC Acceptable None Last Documented On 4 11:06AM ; [facility] Lot # & Exp. Date [id number], 2025-05-15 N (Normal) Last Documented On 4 11:06AM ; [facility] Amphetamines NEG (NEG) N (Normal) Last Documented On 4 11:06AM ; [facility] Barbiturates NEG (neg) N (Normal) Last Documented On 4 11:06AM ; [facility] Benzodiazepines NEG (neg) N (Normal) Last Documented On 4 11:06AM ; [facility] Cocaine NEG (neg) N (Normal) Last Documented On 4 11:06AM ; [facility] Ecstasy NEG (Neg) N (Normal) Last Documented On 4 11:06AM ; [facility] Methamphetamines NEG (neg) N (Normal) Last Documented On 4 11:06AM ; [facility] Methadone NEG (Neg) N (Normal) Last Documented On 4 11:06AM ; [facility] Morphine NEG (Neg) N (Normal) Last Documented On 4 11:06AM ; [facility] Oxycodone NEG (Neg) N (Normal) Last Documented On 4 11:06AM ; [facility] Phencyclidine NEG (NEG) N (Normal) Last Documented On 4 11:06AM ; [facility] TCA/Tricyclic Antidepressants NEG (neg) N (Normal) Last Documented On 4 11:06AM ; [facility] Cannabis POS (neg) A (Abnormal) Last Documented On 4 11:06AM ; [facility] History of Present Illness History of Present Illness not supported for this document type No History of Present Illness Recorded Social History Description Last Updated Current smoker 11/29/2023 Last Documented On 4 11:52AM ; [facility] Alcohol 11/29/2023 Last Documented On 4 11:52AM ; [facility] Not using drugs 11/29/2023 Last Documented On 4 11:52AM ; [facility] Smoking Status Unknown Procedures and Surgical History Includes: Procedures from 11/26/2023 through 11/25/2024 Procedures Code Diagnosis Performing Provider Service Location Service Date ARTHROCENTESIS/A SPIRATION MAJOR JOINT W/ US (RIGHT) 43973 Osteoarthritis of hip, unspecified, Pain in right hip MAGALIE GALVEZ MD [facility] 12/20/2023 Last Documented On 4 9:46AM ; [facility] ARTHROCENTESIS/ASPRIATION MAJOR JOINT W/ US (RIGHT) 56003 Osteoarthritis of hip, unspecified, Pain in right hip MAGALIE GALVEZ MD [facility] 12/20/2023 Last Documented On 4 9:46AM ; [facility] KENALOG INJECTION 10MG J3301 Osteoarthritis of hip, unspecified, Pain in right hip MAGALIE GALVEZ MD [facility] 12/20/2023 Last Documented On 4 9:46AM ; [facility] ARTHROCENTEISI/MAJOR JOINT/BURSA (Bilateral Procedure) 46251 Trochanteric bursitis, right hip, Trochanteric bursitis, left [facility] Last Documented On 4 1:15PM ; [facility] KENALOG INJECTION (KENALOG 10MG) J3301 Trochanteric bursitis, right hip, Trochanteric bursitis, left hip SHAHID [facility] 11/29/2023 Last Documented On 4 1:15PM ; [facility] DRUG TEST PRESEUMPT ANY NUMBER OF CLASSES-CUP DIPSTICK CARD (CLIA WAIVED) 90353 Chronic pain syndrome SHAHID WALLVINS ANP-BC [facility] 11/29/2023 Last Documented On 4 1:15PM ; [facility] Medical History Includes: Medical History in patient's chart Description Last Updated Denies a fear of falling. 01/04/2024 Last Documented On 4 1:47PM ; [facility] Has had no fall in the last 12 months. 0 01/04/2024 Last Documented On 4 1:47PM ; [facility] Mild pain 11/29/2023 Last Documented On 4 11:52AM ; [facility] Family History Includes: Family History in patient's chart Description Last Updated Maternal history of family history of ki dney disease 11/29/2023 Last Documented On 4 11:52AM ; [facility] Review of Systems Review of Systems not supported for this document type No Review of Systems Recorded Mental Status No Mental Status Recorded Functional Status No Functional Status Recorded Physical Exam Physical Exam not supported for this document type No Physical Exam Recorded Allergies Includes: Active, inactive, and resolved Allergies Substance Type Reaction Onset Date Resolved Date Statu s Morphine Sulfate Allergy Vomiting 11/29/2023 Ac tive Last Documented On 4 1:18PM ; [facility] Ibuprofen Allergy Hives / Urticaria 11/29/2023 A ctive Last Documented On 4 1:18PM ; [facility] fentaNYL Allergy Vomiting 11/29/2023 Active Last Documented On 4 1:18PM ; [facility] Encounters Includes: Encounters from 11/26/2023 through 11/25/2024 Encounter Provider Location Date Check-In Time Check-Out Time Diagnosis PAIN MANAGEMENT FOLLOW UP LING WOO QUEEN'S COUNSEL-FPA, ALTITUDE CHAMBER TECHNICIAN-BC [facility] 024 1:03PM 1:36PM Postlaminectomy Syndrome Lumbar,Osteoarthri tis Localized Primary Hip Right,Arthralgia - Pelvis / Hip / Femur Right,Bursitis Trochanteric Right,Bursitis Trochanteric Left,Injury of Lower Extremity Hip Acetabular Labrum Tear INJECTION MAGALIE GALVEZ MD [facility] 024 10:13AM 10:37AM Arthralgia - Pelvis / Hip / Femur Right,Osteoarthrit is Hip Right PAIN MANAGEMENT NEW CONSULT SHAHID CODY ANP-BC [facility] 024 10:32AM 11:47AM Postlaminectomy Syndrome Lumbar,Arthralgia - Pelvis / Hip / Femur Right,Bursitis Trochanteric Right,Osteoarthrit is Localized Primary Hip Right,Injury of Lower Extremity Hip Acetabular Labrum Tear,Bursitis Trochanteric Left Insurance Includes: Active Insurance Policies Plan Name Member ID Group # Subscriber Relationship Effect blaine Dates 1 - [facility] [id number] MARCIN MCKEON Self Clinical Notes Includes: Signed Clinical Notes starting from 08/19/2022 * Progress note Date Encounter Last Documented by 01/04/2024 PAIN MANAGEMENT FOLLOW UP Last d ocumented on 01/04/2024; 1:47 PM, LING WOO APRN-FPA, ALTITUDE CHAMBER TECHNICIAN-; [facility] Chief Complaint The Chief Complaint [...] activity tolerance. Last injection was done in [place] approximately a year ago. She would like to avoid traveling to [place] for injections. MRI right hip indicates labral [...] and for adult impression and score 0; [26946] Established outpatient, medically appropriate H&P, moderate level decision making, 30+ minutes. A total of [45 ] minutes were spent on this patient's evaluation, as above, with greater than 50% of this time spent in direct [id number] counseling and coordination of care. Results of [...] but may be subject to typographical or nurses superintendent errors. Verify all diagnoses, medications, dosages, and patient instructions with patient and/or the originator of this document. Health Reminders - Assess BMI satisfied 01/04/2024. - Assess Tobacco Use satisfied 01/04/2024. - Depression Screening satisfied 01/04/2024. - Follow up plan for Depression Screening satisfied 01/04/2024. - Smoking & Tobacco Cessation Intervention and Counseling satisfied 01/04/2024. * Progress note Date Encounter Last Documented by 12/20/2023 INJECTION Last documented on 12/20/2023; 10:44 AM, MAGALIE GALVEZ MD; [facility] Chief Complaint Acute on chronic right hip pain. Current Medication - Budesonide 3 MG Oral [...] Past Medical/Surgical History Reported: Medical: Mild pain. Social History Tobacco use: Current smoker. Alcohol: Alcohol. Drug Use: Not using drugs. Allergies - fentaNYL Reaction: Vomiting - Ibuprofen Reaction: Hives / Urticaria - Morphine Sulfate Reaction: Vomiting Family History Maternal: Kidney disease Review Of Systems Systemic: No systemic symptoms other then noted and no recent weight loss. Head: No head symptoms other then noted. Neck: No neck pain. Otolaryngeal: No otolaryngeal symptoms other than noted. Cardiovascular: No cardiovascular symptoms other than noted. Pulmonary: No pulmonary symptoms other than noted. Gastrointestinal: No difficulty chewing and no dysphagia. Genitourinary: No genitourinary symptoms other than noted. Endocrine: No endocrine symptoms other than noted. Hematologic: No easy bleeding and no tendency for easy bruising. Musculoskeletal: No musculoskeletal symptoms other than noted. Neurological: No neurological symptoms other than noted and no fainting passing out with needles or medical procedures. Psychological: No sleep apnea. Skin: No skin symptoms other than noted. Physical Findings - Vitals taken 12/20/2023 10:39 am BP-Sitting L 122/87 mmHg BP Cuff Size Regular Pulse Rate-Sitting 76 bpm Pulse Rhythm Regular Respiration Rate 20 per min Temp-Tympanic 97.6 F Height 65 in Weight 207 lbs Body Mass Index 34.4 kg/m2 Body Surface Area 2 m2 Pain Level 7 Oxygen Saturation 97 % Assessment - [M16.9 - Osteoarthritis of hip, unspecified] Osteoarthritis of right hip - [M25.551 - Pain in right hip] Arthralgia of the right pelvis/hip/femur Therapy - Other Administered 8 mL of Sensorcaine-MPF 0.5 % on 12/20/23 10:30a, Given by Dr. Galvez Administered 1 mL of Triamcinolone Acetonide 40 MG/ML on 12/20/23 10:30a, Given by Dr. Galvez - Clinical summary provided to patient. Plan RIGHT HIP JOINT INTRA-ARTICULAR STEROID INJECTION UNDER ULTRASOUND GUIDANCE INFORMED CONSENT: The procedure was described in detail to the patient. Alternatives to procedure, including doing nothing, and potential benefits were described in detail. Risks explained included but were not limited to serious local or systemic infection, bleeding/bruising, scarring/deformity, allergic reaction to medication, failure to treat pain, increased pain or decreased mobility. The patient has also had an explanation of the side effects of corticosteroid. Allergies and medications were confirmed. The patient has had an opportunity to have all questions answered both on the day of initial consultation and again today. The patient wishes to proceed, agrees that potential for benefit outweighs the risk of harm, PROCEDURE IN DETAIL: The patient assumed the supine position with right upper leg flexed at 15 degrees. Area of injection was thoroughly cleansed with chlorhexidine prep solution using aseptic technique and draped in a sterile fashion. Anesthesia was provided by infiltration of no more than 5 ml of 1% PF lidocaine via 27-gauge, 1.5 inch standard needle after negative aspiration. Under ultrasound visualization in the transverse axial oblique view using the curvalinear transducer at 10-12MHz, a 22g 3.5 inch quincke spinal needle was advanced until periosteum was contacted at the juncture of the femoral head and neck. After negative aspiration for blood or bodily fluid, a 10ml solution containing 40mg PF triamcinolone mixed with 0.5% Bupivacaine was injected into the appropriate tissue plane as verified by live ultrasonography. Needle was then withdrawn completely intact without difficulty. The patient appeared to tolerate the procedure well. Sterile bandage was applied. No evidence of complication. Post-procedural instructions including wound care, activity restrictions, explanation of signs and symptoms of complications such as infection or allergic reaction , emergency instructions and plan for follow up were conveyed to the patient. All questions answered to the patient's satisfaction. Patient was discharged after an appropriate recovery period under their own power with no evidence of complication. Practice Management Use of tobacco assessment performed Review of medications documented. Health Reminders - Assess BMI satisfied 12/20/2023. - Assess Tobacco Use satisfied 12/20/2023. * Progress note Date Encounter Last Documented by 11/29/2023 PAIN MANAGEMENT NEW CONSULT Last documented on 11/29/2023; 11:52 AM, SHAHID CODY ANP-; [facility] Chief Complaint The Chief Complaint is: REFERRED BY ZAKI SHARIF FOR CHRONIC HIP PAIN C/O PAIN IN RIGHT HIP INTO BUTTOCKS X 10 YEARS IMAGING, MRI HIP 08/22/22 PHYSICAL THERAPY-[facility] 6 MONTHS AGO, DIDN'T HELP PAIN MANAGEMENT-[facility], DR SHANNON, INJECTIONS SURGERY-NONE IS NOT DIABETIC. History of Present Illness - Allergy list reviewed - Problem list reviewed - Medication reconciliation performed - Medication list reviewed - Prescription Drug Monitoring Program website checked. - Last dose of medication? - Pain is continuous - Pain aggravated when sleeping - Pain radiating to both shoulders - Neck pain radiating to both sides - Abdominal pain radiates to both sides - Groin pain radiating to both sides Discussion: Patient is a 38-year-old female referred for evaluation and treatment of hip pain. She complains of long-standing, chronic hip pain. History of consultation with orthopedic surgeon and pain management. She has been given hip injections as well as trochanteric bursa injections in the past with significant pain relief and improved activity tolerance. Last injection was done in [place] approximately a year ago. She would like to avoid traveling to [place] for injections. MRI right hip indicates labral [...] pedicle fusion from L4-S1. Hardware appears intact. Test Conclusions PHQ-9 Score: 0 Date:11/29/23 BPI Score: Date: MiDAS Score: Date: SOAPP-R Score: 4 LOW Date:11/29/23 OSWESTRY Score:12=24% Date:11/29/23 Past Medical/Surgical History Reported: Medical: Mild pain. Current Medication - Budesonide 3 MG Oral [...] Tablet as needed 30 days, 0 refills Social History Tobacco use: Current smoker. Alcohol: [...] than noted. Physical Findings - Vitals taken 11/29/2023 11:08 am BP-Sitting R 120/70 mmHg Pulse Rate-Sitting 103 bpm Temp-Temporal 96.1 F Height 65 in Weight 206 lbs Body Mass Index 34.3 kg/m2 Body Surface Area 2 m2 Pain Level 4 Pain Level Note RIGHT HIP Oxygen Saturation 98 % Musculoskeletal System: General/bilateral: Musculoskeletal Scales: Value [...] No rash. Normal pigmentation. Normal temperature Tests - Test: Drugs of abuse screen Report Date: 11/29/2023 Internal QC Acceptable Lot # & Exp. Date [id number], 2025-05-15 Normal Amphetamines NEG Normal Barbiturates NEG Normal Benzodiazepines NEG Normal Cocaine NEG Normal Ecstasy NEG Normal Methamphetamines NEG Normal Methadone NEG Normal Morphine NEG Normal Oxycodone NEG Normal Phencyclidine NEG Normal TCA/Tricyclic Antidepressants NEG Normal Cannabis POS Abnormal Educational Testing: Questionnaires PHQ-9: Value SOAPP-R: total score 4 Assessment - Localized primary osteoarthritis of right hip [M16.11 - Unilateral primary osteoarthritis, right hip] - Arthralgia of the right pelvis/hip/femur [M25.551 - Pain in right hip] - Right trochanteric bursitis [M70.61 - Trochanteric bursitis, right hip] - Left trochanteric bursitis [M70.62 - Trochanteric bursitis, left hip] - Lumbar postlaminectomy syndrome [M96.1 - Postlaminectomy syndrome, not elsewhere classified] - Acetabular labrum tear [M24.151 - Other articular cartilage disorders, right hip] Therapy - Intervention and counseling on cessation of tobacco use: Patient recieved smoking cessation handout. - Clinical summary provided to patient Patient understands and agrees with treatment plan. Questions answered. Discussed Bilateral trochanteric bursa injection today. Patient will be scheduled for a right hip intra-articular joint injection with Dr. Galvez. Potential risks and benefits discussed. Follow-up post procedure Plan StartCited - Chronic pain syndrome In office procedures/*Clia Waived Labs: Urine Drug Screen EndCited StartCited - Unilateral primary osteoarthritis, right hip Pain Management CPT/Joints and Bursa Inj: Major joint/bursa injection w/ U/S Instructions: Right hip steroid injection under ultrasound guidance. at least 2 weeks out (trochanteric bursa inj done today) EndCited Practice Management Use of tobacco assessment performed Review of medications documented; Standardized depression screening: negative for symptoms and for adult impression and score 0. A total of [45 ] minutes were spent on this patient's evaluation, as above, with greater than 50% of this time spent in direct [id number] counseling and coordination of care. Results of [...] but may be subject to typographical or nurses superintendent errors. Verify all diagnoses, medications, dosages, and patient instructions with patient and/or the originator of this document. Health Reminders - Assess BMI satisfied 11/29/2023. - Assess Tobacco Use satisfied 11/29/2023. - Depression Screening satisfied 11/29/2023. - Follow up plan for Depression Screening satisfied 11/29/2023. - Smoking & Tobacco Cessation Intervention and Counseling satisfied 11/29/2023.
--- OUTSIDE RECORDS SUMMARY | 2024-11-25 13:26 | XMS_ITS | Clinical Summary ---
Author Organization [facility] Address [address] [place] [address] Phone Care Team Providers Care Produce Sorter Name Role Phone ZAKI CRANE MD Primary Care Provider [phone] Reason for Visit and Chief Complaint INJECTION Plan of Treatment RIGHT HIP JOINT INTRA-ARTICULAR STEROID INJECTION UNDER [...] own power with no evidence of complication. - Last Documented On 12/20/2023 10:42AM ; [facility] Assessments Includes: Assessments from this encounter Findings - [M16.9 - Osteoarthritis of hip, unspecified] Osteoarthritis of right hip - Last Documented On 12/20/2023 10:42AM ; [facility] - [M25.551 - Pain in right hip] Arthralgia of the right pelvis/hip/femur - Last Documented On 12/20/2023 10:42AM ; [facility] Medical Equipment - Implanted Devices Includes: Current Devices No Medical Equipment Recorded Medications Includes: Medications discussed during this encounter and other current Medications Current Medications (continue as prescribed) Lansoprazole 30 MG Oral Caps ule Delayed Release 11/14/2023 Provider: HIGINIO BARRAGAN MD Diagnosis: Last Documented On 4 1:41PM By LING BABB ; [facility] Montelukast Sodium 10 MG Oral Tablet 11/13/2023 Prov ider: ZAKI CRANE MD Diagnosis: Last Documented On 4 1:41PM By LING BABB ; [facility] Budesonide 3 MG Oral Capsule Delayed Release Particles 11/07/2023 Provider: Diagnosis: 3 IN THE MORNING Last Documented On 4 1:41PM By LING BABB ; [facility] Hydrocortisone 2.5% External Cream 10/27/2023 Provid er: Diagnosis: Last Documented On 4 1:41PM By LING BABB ; [facility] Cyclobenzaprine HCl 5 MG Oral Tablet 10/24/2023 Prov ider: ZAKI CRANE MD Diagnosis: Last Documented On 4 1:41PM By LING BABB ; [facility] HYDROcodone-Acetaminophen 5-325 MG Oral Tablet 024 Provider: ZAKI CRANE MD Diagnosis: Last Documented On 4 1:41PM By LING BABB ; [facility] Ketorolac Tromethamine 10 MG Oral Tablet 09/08/2023 Provider: ZAKI CRANE MD Diagnosis: Last Documented On 4 1:41PM By LING BABB ; [facility] Medications Administered Includes: Administered Medications from this encounter Medications Administered Diagnosis Date Pro vider Sensorcaine-MPF 0.5% IJ SOLN 12/20/2023 MAGALIE GALVEZ MD Given by Dr. Galvez Last Documented On 4 10:41AM By Meri Zhou RN ; [facility] Triamcinolone Acetonide 40 MG/ML IJ SUSP 12/20/2023 MAGALIE GALVEZ MD Given by Dr. Galvez Last Documented On 4 10:42AM By Meri Zhou RN ; [facility] Sodium Chloride (PF) 0.9% IJ SOLN 024 MAGALIE GALVEZ MD Last Documented On 4 10:43AM By Meri Zhou RN ; [facility] Xylocaine-MPF 1% IJ SOLN 12/20/2023 ENOCH GALVEZ MD Given by Dr. Galvez Last Documented On 4 10:44AM By Meri Zhou RN ; [facility] Vital Signs Includes: Vital Signs from this encounter Vital Name 12/20/2023 10:39A Blood Pressure Sitting L 122/87 BP Cuff Size Regular Pulse Rate-Sitting (bpm) 76 Pulse Rhythm Regular Respiration Rate (breaths/min) 20 Temp-Tympanic (F) 97.6 Height (in) 65 Weight (lb) 207 Body Mass Index 34.4 Body Surface Area 2 Pain Level 7 Oxygen Saturation (%) 97 Last Documented: On 12/20/2023 10:40A M ; [facility] Results Includes: Results discussed during this encounter No Results Recorded For Specified Dates History of Present Illness Includes: History of Present Illness from this encounter No History of Present Illness Recorded Social History Description Last Updated Current smoker 11/29/2023 Last Documented On 4 10:34AM ; [facility] Alcohol 11/29/2023 Last Documented On 4 10:34AM ; [facility] Not using drugs 11/29/2023 Last Documented On 4 10:34AM ; [facility] Smoking Status Unknown Procedures and Surgical History Includes: Procedures from this encounter Procedures Code Diagnosis Performing Provider Service Location Service Date ARTHROCENTESIS/A SPIRATION MAJOR JOINT W/ US (RIGHT) Osteoarthritis of hip, unspecified, Pain in right hip MAGALIE GALVEZ MD [facility] 12/20/2023 Last Documented On 4 9:46AM ; [facility] ARTHROCENTESIS/ASPRIATION MAJOR JOINT W/ US (RIGHT) Osteoarthritis of hip, unspecified, Pain in right hip MAGALIE GALVEZ MD [facility] 12/20/2023 Last Documented On 4 9:46AM ; [facility] KENALOG INJECTION 10MG J3301 Osteoarthritis of hip, unspecified, Pain in right hip MAGALIE GALVEZ MD [facility] 12/20/2023 Last Documented On 4 9:46AM ; [facility] use of tobacco assessment performed 1000F Last Documented On 4 10:35AM ; [facility] review of medications documented 1160F Last Documented On 4 10:35AM ; [facility] Clinical summary provided to patient Last Documented On 4 10:35AM ; [facility] Medical History Includes: Medical History addressed during this encounter Description Last Updated Mild pain 11/29/2023 Last Documented On 4 10:34AM ; [facility] Family History Includes: Family History addressed during this encounter Description Last Updated Maternal history of family history of ki dney disease 11/29/2023 Last Documented On 4 10:34AM ; [facility] Review of Systems Includes: Review of Systems from this encounter Systemic: No systemic symptoms other then noted [...] tive Last Documented On 4 1:18PM ; [facility] Ibuprofen Allergy Hives / Urticaria 11/29/2023 A ctive Last Documented On 4 1:18PM ; [facility] fentaNYL Allergy Vomiting 11/29/2023 Active Last Documented On 4 1:18PM ; [facility] Encounters Encounter Provider Location Date Check-In Time Check- Out Time Diagnosis INJECTION MAGALIE GALVEZ MD [facility] 4 10:13AM 10:37AM Arthralgia - Pelvis / Hip / Femur Right,Osteoart hritis Hip Right Insurance Includes: Active Insurance Policies Plan Name Member ID Group # Subscriber Relationship Effect blaine Dates 1 - R [id number] MARCIN MCKEON Self Clinical Notes Includes: Clinical Notes from this encounter * Progress note Date Encounter Last Documented by 12/20/2023 INJECTION Last documented on 12/20/2023; 10:44 AM, MAGALIE GALVEZ MD; [facility] Chief Complaint Acute on chronic right hip [...]
--- OUTSIDE RECORDS SUMMARY | 2024-11-25 13:26 | XMS_ITS | Clinical Summary ---
Author Organization [facility] Address [address] [place] [address] Phone Care Team Providers Care Supervisor Rolling Room Name Role Phone ZAKI CRANE MD Primary Care Provider [phone] Reason for Visit and Chief Complaint The Chief Complaint is: REFERRED BY ZAKI SHARIF FOR CHRONIC HIP PAIN ~C/O PAIN IN RIGHT HIP INTO BUTTOCKS X 10 YEARS ~IMAGING, MRI HIP 08/22/22 ~PHYSICAL THERAPY-[facility] 6 MONTHS AGO, DIDN'T HELP ~PAIN MANAGEMENT-DR SHIVA WARE, INJECTIONS ~SURGERY-NONE ~IS NOT DIABETIC Plan of Treatment Instructions to patient Intervention and counseling on cessation of tobacco use : Patient recieved smoking cessation handout Last Documented On 11:14AM ; [facility] Assessments Includes: Assessments from this encounter Findings - Localized primary osteoarthritis of right hip [M16.11 - Unilateral primary osteoarthritis, right hip] - Last Documented On 11/29/2023 11:52AM ; [facility] - Arthralgia of the right pelvis/hip/femur [M25.551 - Pain in right hip] - Last Documented On 11/29/2023 11:52AM ; [facility] - Right trochanteric bursitis [M70.61 - Trochanteric bursitis, right hip] - Last Documented On 11/29/2023 11:52AM ; [facility] - Left trochanteric bursitis [M70.62 - Trochanteric bursitis, left hip] - Last Documented On 11/29/2023 11:52AM ; [facility] - Lumbar postlaminectomy syndrome [M96.1 - Postlaminectomy syndrome, not elsewhere classified] - Last Documented On 11/29/2023 11:52AM ; [facility] - Acetabular labrum tear [M24.151 - Other articular cartilage disorders, right hip] - Last Documented On 11/29/2023 11:52AM ; [facility] Instructions Includes: Instructions from this encounter Instructions to patient Intervention and counseling on cessation of tobacco use : Patient recieved smoking cessation handout Last Documented On 11:14AM ; [facility] Medical Equipment - Implanted Devices Includes: Current Devices No Medical Equipment Recorded Medications Includes: Medications discussed during this encounter and other current Medications Current Medications (continue as prescribed) Lansoprazole 30 MG Oral Caps ule Delayed Release 11/14/2023 Provider: HIGINIO BARRAGAN MD Diagnosis: Last Documented On 4 1:41PM By LING BABB ; [facility] Montelukast Sodium 10 MG Oral Tablet 11/13/2023 Prov ider: ZAKI CRANE MD Diagnosis: Last Documented On 4 1:41PM By LING BABB ; [facility] Budesonide 3 MG Oral Capsule Delayed Release Particles 11/07/2023 Provider: Diagnosis: 3 IN THE MORNING Last Documented On 4 1:41PM By LING BABB ; [facility] Hydrocortisone 2.5% External Cream 10/27/2023 Provid er: Diagnosis: Last Documented On 4 1:41PM By LING BABB ; [facility] Cyclobenzaprine HCl 5 MG Oral Tablet 10/24/2023 Prov ider: ZAKI CRANE MD Diagnosis: Last Documented On 4 1:41PM By LING BABB ; [facility] HYDROcodone-Acetaminophen 5-325 MG Oral Tablet 024 Provider: ZAKI CRANE MD Diagnosis: Last Documented On 4 1:41PM By LING BABB ; [facility] Ketorolac Tromethamine 10 MG Oral Tablet 09/08/2023 Provider: ZAKI CRANE MD Diagnosis: Last Documented On 4 1:41PM By LING BABB ; [facility] Medications Administered Includes: Administered Medications from this encounter No Administered Medications Recorded Vital Signs Includes: Vital Signs from this encounter Vital Name 11/29/2023 11:08A Blood Pressure Sitting R 120/70 Pulse Rate-Sitting (bpm) 103 Temp-Temporal 96.1 Height (in) 65 Weight (lb) 206 Body Mass Index 34.3 Body Surface Area 2 Pain Level 4 Oxygen Saturation (%) 98 Last Documented: On 11/29/2023 11:11A M ; [facility] Results Includes: Results discussed during this encounter Drugs of abuse screen [facility] Ordered by SHAHID CODY ANP- on Collected: Reported: 11/29/2023 11:05 Last Documented On 4 11:06AM ; [facility] Reviewed on 11/29/2023; All test results are final unless otherwise noted. Internal QC Acceptable None Last Documented On 4 11:06AM ; [facility] Lot # & Exp. Date [id number], 2025-05-15 N (Normal) Last Documented On 4 11:06AM ; [facility] Amphetamines NEG (NEG) N (Normal) Last Documented On 4 11:06AM ; [facility] Barbiturates NEG (neg) N (Normal) Last Documented On 4 11:06AM ; [facility] Benzodiazepines NEG (neg) N (Normal) Last Documented On 4 11:06AM ; [facility] Cocaine NEG (neg) N (Normal) Last Documented On 4 11:06AM ; [facility] Ecstasy NEG (Neg) N (Normal) Last Documented On 4 11:06AM ; [facility] Methamphetamines NEG (neg) N (Normal) Last Documented On 4 11:06AM ; [facility] Methadone NEG (Neg) N (Normal) Last Documented On 4 11:06AM ; [facility] Morphine NEG (Neg) N (Normal) Last Documented On 4 11:06AM ; [facility] Oxycodone NEG (Neg) N (Normal) Last Documented On 4 11:06AM ; [facility] Phencyclidine NEG (NEG) N (Normal) Last Documented On 4 11:06AM ; [facility] TCA/Tricyclic Antidepressants NEG (neg) N (Normal) Last Documented On 4 11:06AM ; [facility] Cannabis POS (neg) A (Abnormal) Last Documented On 4 11:06AM ; [facility] History of Present Illness Includes: History of Present Illness from this encounter HPI - Allergy list reviewed - Problem list [...] activity tolerance. Last injection was done in [place] approximately a year ago. She would like to avoid traveling to [place] for injections. MRI right hip indicates labral [...] 11/29/2023 Last Documented On 4 11:52AM ; [facility] Alcohol 11/29/2023 Last Documented On 4 11:52AM ; [facility] Not using drugs 11/29/2023 Last Documented On 4 11:52AM ; [facility] Smoking Status Unknown Procedures and Surgical History Includes: Procedures from this encounter Procedures Code Diagnosis Performing Provider Service Location Service Date ARTHROCENTEISI/MA MIRA JOINT/BURSA (Bilateral Procedure) Trochanteric bursitis, right hip, Trochanteric bursitis, left hip SHAHID CODY [facility] 11/29/2023 Last Documented On 4 1:15PM ; [facility] KENALOG INJECTION (KENALOG 10MG) J3301 Trochanteric bursitis, right hip, Trochanteric bursitis, left hip SHAHID CODY [facility] 11/29/2023 Last Documented On 4 1:15PM ; [facility] DRUG TEST PRESEUMPT ANY NUMBER OF CLASSES-CUP DIPSTICK CARD (CLIA WAIVED) 14140 Chronic pain syndrome SHAHID CODY [facility] 11/29/2023 Last Documented On 4 1:15PM ; [facility] intervention and counseling on cessation of tobacco use : Patient recieved smoking cessation handout 4000F Last Documented On 4 11:14AM ; [facility] use of tobacco assessment performed 1000F Last Documented On 4 11:23AM ; [facility] standardized depression screening: negative for symptoms 3351F Last Documented On 4 11:14AM ; [facility] review of medications documented 1160F Last Documented On 4 11:23AM ; [facility] screening for adult depression: impressi on and score 0 Last Documented On 4 11:14AM ; [facility] Clinical summary provided to patient ~ Patient understands and agrees with treatment plan. Questions answered Last Documented On 4 10:23AM ; [facility] SOAPP-R: total score 4 Last Documented On 4 11:07AM ; [facility] Medical History Includes: Medical History addressed during this encounter Description Last Updated Mild pain 11/29/2023 Last Documented On 4 11:52AM ; [facility] Family History Includes: Family History addressed during this encounter Description Last Updated Maternal history of family history of ki dney disease 11/29/2023 Last Documented On 4 11:52AM ; [facility] Review of Systems Includes: Review of Systems [...] tive Last Documented On 4 1:18PM ; [facility] Ibuprofen Allergy Hives / Urticaria 11/29/2023 A ctive Last Documented On 4 1:18PM ; [facility] fentaNYL Allergy Vomiting 11/29/2023 Active Last Documented On 4 1:18PM ; [facility] Encounters Encounter Provider Location Date Check-In Time Check-Out Time Diagnosis PAIN MANAGEMENT NEW CONSULT SHAHID RICHARD [facility] 024 10:32AM 11:47AM Postlaminectomy Syndrome Lumbar,Arthralgia - Pelvis / Hip / Femur Right,Bursitis Trochanteric Right,Osteoarthrit is Localized Primary Hip Right,Injury of Lower Extremity Hip Acetabular Labrum Tear,Bursitis Trochanteric Left Insurance Includes: Active Insurance Policies Plan Name Member ID Group # Subscriber Relationship Effect blaine Dates 1 - [facility] [id number] MARCIN MCKEON Self Clinical Notes Includes: Clinical Notes from this encounter * Progress note Date Encounter Last Documented by 11/29/2023 PAIN MANAGEMENT NEW CONSULT Last documented on 11/29/2023; 11:52 AM, SHAHID KHAN; [facility] Chief Complaint The Chief [...] activity tolerance. Last injection was done in [place] approximately a year ago. She would like to avoid traveling to [place] for injections. MRI right hip indicates labral [...] QC Acceptable Lot # & Exp. Date [id number], 2025-05-15 Normal Amphetamines NEG Normal Barbiturates NEG [...] 50% of this time spent in direct [id number]-[id number] counseling and coordination of care. Results of [...] but may be subject to typographical or multi needle machine operator errors. Verify all diagnoses, medications, dosages, and patient instructions with patient and/or the originator of this document. Health Reminders - Assess BMI satisfied 11/29/2023. - Assess Tobacco Use satisfied 11/29/2023. - Depression Screening satisfied 11/29/2023. - Follow up plan for Depression Screening satisfied 11/29/2023. - Smoking & Tobacco Cessation Intervention and Counseling satisfied 11/29/2023.
--- OUTSIDE RECORDS SUMMARY | 2024-11-25 13:26 | XMS_ITS ---
Care Plan - [facility] Created on: November 25, 2024 LINDAMARCIN : 1985 Sex: Female Author Organization [facility] Address [address] [place] [address] Phone Care Team Providers Care Non Ferrous Material Handler Name Role Phone ROSA MARIA LICONA, ZAKI Primary Care Provider [phone]
--- OUTSIDE RECORDS SUMMARY | 2024-11-25 13:26 | XMS_ITS | Referral Summary ---
Author Organization [facility] Address [address] [place] [address] Care Team Providers Care School Guidance Counselor Name Role Phone Anton Burrell MD Primary Care Provider [phone] Hair Manzano Unavailable [phone] Maxwell Cook MD Unavailable [phone] Encounters Date Type Department Care Team Description 10/03/2024 Orders Only [facility] with [address] [place] [address] Amy Jones NP Low back pain, non-specific (Primary Dx) 10/02/2024 Telephone [facility] with [address] Office [facility] 4 [facility] [place] [address] Lloyd Ewing MA Appointment Reminder Call 09/09/2024 Telephone [facility] [place] with [address] Office [facility] [address] [facility] [place] [address] Lloyd Ewing MA from Last 3 Months Allergies Active Allergy Reactions Criticality Noted Date Comments Ibuprofen Hives Medium Naproxen Hives Medium Medications cyclobenzaprine (FLEXERIL) 10 mg tablet TAKE ONE TABLET BY MOUTH THREE TIMES A DAY NEEDED 11/29/2016 Active famotidine (PEPCID) 40 mg tablet 05/14/2022 Active HYDROcodone-jerson taminophen (NORCO) 5-325 mg per tabletIndicatio ns:Pain Take 1 tablet by mouth every 6 (six) hours as needed Active ketorolac (TORADOL) 10 mg tablet Take 10 mg by mouth every 8 (eight) hours as needed for pain Active diazePAM (VALIUM) 5 mg tablet Take 5 mg by mouth daily as needed for anxiety Active Active Problems Problem Noted Date Diagnosed Date Tear of right acetabular labrum 11/30/2021 Mood disorder 03/31/2017 Pseudarthrosis following spinal fusion 6 Borderline personality disorder 02/04/2014 Fibromyalgia 01/16/2014 Hiatal hernia 01/16/2014 Arthritis 01/16/2014 Neck pain 01/16/2014 Panic attack 12/13/2013 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 Immunizations Immunization Administration Dates Next Due Influenza, Trivalent, IM (MDV) 09/25/2013 Influenza, Trivalent, Preservative Free, Intramu scular 04/30/2016,04/30/2014 Influenza, Unspecified 09/25/2013 Social History Tobacco Use Types Packs/Day Years Used Date Smoking Tobacco: Every Day Cigarettes Smokeless Tobacco: Never Tobacco Cessation:Ready to Q uit: Not Asked; Counseling Given: No Comments:Smoking History Packs/day: 1 Packs Alcohol Use Standard Drinks/Week Comments No 0 (1 standard drink = 0.6 oz pur e alcohol) AUDIT-C Answer Date Recorded Q1: How often do you have a drink containing alc ohol? 2-3 times a week 07/12/2022 Q2: How many drinks containi ng alcohol do you have on a typical day when you are drinking? 3 or 4 07/12/2022 Frequency of Binge Drinking Not on file 06/30 Personal Safety Answer Date Recorded Have you ever been in or are you currently in a harmful physical or emotional relationship or is someone making you feel afraid or unsafe? Denies 11/14/2022 Comments Unknown Sex and Gender Information Value Date Recorded Sex Assigned at Not on file Legal Sex Female 3:00 AM TEST CASE DEVELOPER Gender Identity Not on file Sexual Orientation Not on file Last Filed Vital Signs Vital Sign Reading Time Taken Comments Blood Pressure 127/81 11/14/2022 2:32 PM CDT Pulse 81 11/14/2022 2:32 PM CDT Temperature - - Respiratory Rate 16 11/14/2022 2:32 PM CDT Oxygen Saturation 100% 11/14/2022 2:32 PM CDT Inhaled Oxygen Concentration - - Weight 86.2 kg (190 lb) 10/03/2022 10:40 AM TEST CASE DEVELOPER Height 165.1 cm (5' 5 ) 10/03/2022 10:40 AM TEST CASE DEVELOPER Body Mass Index 31.62 10/03/2022 10:40 AM TEST CASE DEVELOPER Plan of Treatment Not on file Procedures Procedure Name Priority Date/Time Associated Diagnosis Comments SERUM HEPATITIS C AB Routine 09/12/2013 6:39 AM TEST CASE DEVELOPER from Last 3 Months or Most Recently Relevant to Health Maintenance Results * Serum Hepatitis C ab (09/12/2013 6:39 AM TEST CASE DEVELOPER) HCV ab Negative NEG HISTORICAL RESULTS Serum 09/12/2013 6:39 AM TEST CASE DEVELOPER Narrative HISTORICAL RESULTS - 09/13/2013 3:23 AM TEST CASE DEVELOPER Interpretive Data If confirmation is required, call Laboratory Customer Service to request sample to be sent to [facility] for Hepatitis C Virus (HCV) RNA Detection and Quantitation by Real-Time Reverse Housekeeping Staff-PCR (RT-PCR). Current interpretive data was last revised on 2011 Maxwell Cook MD LAB BLOOD ORDERABLES Final Result HISTORICAL RESULTS from Last 3 Months or Most Recently Relevant to Health Maintenance Insurance [facility] Care Teams School Guidance Counselor Relationship Specialty Start Date End Date Anton Burrell MD PCP - General 09/19/16 Hair Manzano PA Physician Lifeguard Neurosurgery 07/06/22 Maxwell Cook MD [address] [place] [id number] Consulting Physician Neurosurgery 07/06/22
--- OUTSIDE RECORDS SUMMARY | 2024-11-25 13:26 | XMS_ITS | Clinical Summary ---
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 Encounters Date Type Department Care Team Description 10/03/2024 Orders Only [facility] with [facility] [address] Medical Office Building [address] [place] [address] Amy Jones NP Low back pain, non-specific (Primary Dx) 10/02/2024 Telephone [facility] [place] with [facility] [address] [facility] Medical Office Building [address] [place] [address] Lloyd Ewing MA Appointment Reminder Call 09/09/2024 Telephone [facility] [place] with [facility] [address] [facility] Medical Office Building [address] [place] [address] Lloyd Ewing MA from Last 3 Months Immunizations Immunization Administration Dates Next Due Influenza, Trivalent, IM (MDV) 09/25/2013 Influenza, Trivalent, Preservative Free, Intramu scular 04/30/2016,04/30/2014 Influenza, Unspecified 09/25/2013 Surgical History Surgery Date Site/Laterality Comments CHOLECYSTECTOMY 2013 Cholecystectomy GALLBLADDER SURGERY Gallbladder Surgery - (Added by TW Conv) [place] ARTHRD ANT INTERBODY MIN DSC LUMBAR Lumbar Vertebral Fusion - (Added by TW Conv) HYSTERECTOMY FLUORO GUIDED INJECTION HIP RIGHT 10/18/2022 Right FLUORO GUIDED INJECTION HIP RIGHT 11/14/2022 Right Medical History Medical History Date Comments Borderline personality disorder (HCC) 2012 borderline personality disorder Major depressive disorder, single episode Depression - (Added by TW Conv) Dorsalgia Back pain - (Add ed by TW Conv) Family History Medical History Relation Name Comments Kidney disease Father Family histor y of kidney disease - (Added by TW Conv) Liver disease Father Cancer Mother Cancer; /Family history of cancer - (Added by TW Conv) Cancer Paternal Grandfather Relation Name Status Comments Father Mother Paternal Grandfather Social History Tobacco Use Types Packs/Day Years [...] on file Legal Sex Female 3:00 AM CONVEYOR BELT INSTALLER Gender Identity Not on file Sexual Orientation Not on file Obstetrics History Last Filed Vital Signs Vital Sign Reading Time Taken Comments Blood Pressure 127/81 11/14/2022 2:32 PM CDT Pulse 81 11/14/2022 2:32 PM CDT Temperature - - Respiratory Rate 16 11/14/2022 2:32 PM CDT Oxygen Saturation 100% 11/14/2022 2:32 PM CDT Inhaled Oxygen Concentration - - Weight 86.2 kg (190 lb) 10/03/2022 10:40 AM CONVEYOR BELT INSTALLER Height 165.1 cm (5' 5 ) 10/03/2022 10:40 AM CONVEYOR BELT INSTALLER Body Mass Index 31.62 10/03/2022 10:40 AM CONVEYOR BELT INSTALLER Plan of Treatment Health Maintenance Due Date Last Done Comments Breast Cancer Screening-Mammogram 1983 Depression Screening 1983 DTaP/Tdap/Td Vaccine (1 - Tdap) 1994 Varicella Vaccines (1 of 2 - 13+ 2-dose series) 1996 Hepatitis B Screening 2001 Regular Well Visit/Exam 18-64 2001 Pneumococcal vaccine <65 (1 of 2 - PCV) 2002 Influenza Vaccine (#1) 2024 6, 04/30/2014, 09/25/2013, Additional history exists Hepatitis C Screening Completed 09/12/2013 HPV Vaccines Aged Out No longer eligi ble based on patient's age to complete this topic Procedures Procedure Name Priority Date/Time Associated Diagnosis Comments SERUM HEPATITIS C AB Routine 09/12/2013 6:39 AM CONVEYOR BELT INSTALLER from Last 3 Months or Most Recently Relevant to Health Maintenance Results * Serum Hepatitis C ab (09/12/2013 6:39 AM CONVEYOR BELT INSTALLER) HCV ab Negative NEG HISTORICAL RESULTS Serum 09/12/2013 6:39 AM CONVEYOR BELT INSTALLER Narrative HISTORICAL RESULTS - 09/13/2013 3:23 AM CONVEYOR BELT INSTALLER Interpretive Data If confirmation is required, call Laboratory Customer Service to request sample to be sent to [facility] for Hepatitis C Virus (HCV) RNA Detection and Quantitation by Real-Time Reverse Gear Coding Machine Operator-PCR (RT-PCR). Current interpretive data was last revised on 2011 us Maxwell Cook MD LAB BLOOD ORDERABLES Final Result HISTORICAL RESULTS from Last 3 Months or Most Recently Relevant to Health Maintenance Insurance [facility] Care Teams Countersinker Balance Screw Hole Relationship Specialty Start Date End Date Anton Burrell MD PCP - General 09/19/16 Hair Manzano PA Physician Foreign Food Cook Specialty Neurosurgery 07/06/22 Maxwell Cook MD [address] [place] [address] Consulting Physician Neurosurgery 07/06/22
== END 2024-11-25 11:23 | disposition home or self-care (01) ==
PROVIDERS: PCP Internal Medicine; Visit Provider Internal Medicine
DX: R05.9 Cough, unspecified (principal)
CPT/HCPCS: 71046

== ENCOUNTER 2025-01-07 10:15 | Outpatient (CLI) | payer BC, SELFPAY ==
[2025-01-07 10:31] LABS: Eosinophils Absolute Auto 0.41 K/mm3 (0.02-0.50); Eosinophils Percent Auto 4.2 % (1.0-6.0); Hematocrit 45.7 % (35.0-49.0); Immature Granulocyte Absolute 0.05 K/mm3 (0.00-0.00); Immature Granulocyte Percent A 0.5 % (0.0-0.0); Lymphocytes Percent Auto 25.4 % (18.0-42.0); Mean Corpuscular HGB Conc 32.8 g/dL (32-36); Mean Corpuscular Hemoglobin 32.3 pg (27.0-31.0); Mean Corpuscular Volume 98.3 fL (78.0-102.0); Monocytes Absolute Auto 0.66 K/mm3 (0.10-0.90); Monocytes Percent Auto 6.7 % (2.0-11.0); Neutrophils Absolute Auto 6.14 K/mm3 (1.70-7.20); Neutrophils Percent Auto 62.2 % (50.0-70.0); Platelet Count Result 295 K/mm3 (150-420); Red Blood Count 4.65 M/mm3 (4.20-5.40); Red Cell Distribution Width 13.4 % (11.6-14.4); White Blood Count 9.9 K/mm3 (4.8-10.8)
[2025-01-07 10:33] LABS: Add Urine Microscopic? YES; Appearance Urine Clear (Clear); Bilirubin Urine Negative (Negative); Blood Urine Negative (Negative); Color Urine Yellow (Yellow); Glucose Urine UA Negative (Negative); Ketones Urine Negative (Negative); Leukocyte Esterase Ur 1+ (Negative); Nitrate Urine Negative (Negative); Protein Urine Negative (Negative); Specific Grav Ur 1.025 (1.010-1.020)
[2025-01-07 10:37] LABS: Bacteria Urine 1+ /hpf; RBC Urine None seen /hpf (0-2); Squamous Epithelial Cell Urine Many /hpf (Few)
[2025-01-07 10:57] LABS: Alanine Aminotransferase 87 U/L (6-35); Alkaline Phosphatase 72 U/L (38-126); Anion Gap 2 mmol/L (4-12); Aspartate Amino Transferase 54 U/L (14-36); Bilirubin,Total 0.5 mg/dL (0.2-1.3); Blood Urea Nitrogen 4 mg/dL (7-17); CRP 0.6 mg/dL (<1.0); Calcium 9.2 mg/dL (8.4-10.2); Carbon Dioxide 27 mmol/L (22-30); Chloride 109 mmol/L (98-107); Cholesterol 196 mg/dL (0-200); Estimated Glomerular Filt Rate > 60; Glucose 88 mg/dL (65-110); HDL Direct 54 mg/dL; LDL Cholesterol Calculated 105 mg/dL (<130); Osmolality Calculated 281 mOsm/kg (285-295); Potassium 4.3 mmol/L (3.4-5.0); Sodium 138 mmol/L (137-145); Total Protein 6.1 g/dL (6.3-8.2); Triglycerides 186 mg/dL (<150)
[2025-01-09 02:50] LABS: Hepatitis A Antibody IgM NON-REACTIVE (NON-REACTIVE); Hepatitis B Core Antibody NON-REACTIVE (NON-REACTIVE); Hepatitis B Surface Antigen NON-REACTIVE (NON-REACTIVE); Hepatitis C Virus Antibody NON-REACTIVE (NON-REACTIVE)
== END 2025-01-07 10:16 | disposition home or self-care (01) ==
PROVIDERS: PCP Internal Medicine; Visit Provider Internal Medicine
DX: R94.5 Abnormal results of liver function studies (principal); R21 Rash and other nonspecific skin eruption
CPT/HCPCS: 36415; 80053; 80061; 80074; 81001; 82728; 84443; 85025; 86140

== ENCOUNTER 2025-03-12 00:41 | Emergency (ER) | payer BC, SELFPAY ==
--- OUTSIDE RECORDS SUMMARY | 2025-03-12 00:44 | XMS_ITS | Patient Health Record ---
Author Organization [facility] Address [address] [facility] [address] [place] [address] Care Team Providers Care Impression Printer Name Role Phone Wesley Ngo Unavailable [phone] Reason For Referral No Information Medications Medication SIG (Take, Route, Frequency, Duration) Notes Start Date End Date Status Vicodin 5-300 MG Oral *Reorder from [facility] for eRx and Interaction Alerts* Active Vraylar 1.5 mg Oral Activ e Plan Of Treatment No Information
--- OUTSIDE RECORDS SUMMARY | 2025-03-12 00:44 | XMS_ITS | Patient Health Record ---
Author Organization [facility] Address [address] [place], [place] [id number] Care Team Providers Care Credit Report Checker Name Role Phone SASKIA ELLIS Unavailable [phone] Anton Burrell Unavailable Unavailable Reason For Referral No Information Medications Medication SIG (Take, Route, Frequency, Duration) Notes Start Date End Date Status 12 HR oxycodone hydrochloride 10 MG Extended Release Oral Tablet ORAL 12 HR oxycodone hydrochloride 10 MG Extended Release Oral TabletOriginal [id number] HR oxycodone hydrochloride 10 MG Extended Release Oral Tablet *Reorder from [facility] for eRx and Interaction Alerts* 03/26/2013 Active diazepam 10 MG Oral Tablet [Valium] ORAL diazepam 10 MG Oral Tablet [Valium]Original Medicationdiazepam 10 MG Oral Tablet [Valium] *Reorder from [facility] for eRx and Interaction Alerts* 03/26/2013 Active guanfacine 1 MG Oral Tablet ORAL guanfacine 1 MG Oral TabletOriginal Medicationguanfacine 1 MG Oral Tablet *Reorder from [facility] for eRx and Interaction Alerts* 03/26/2013 Active oxycodone hydrochloride 10 MG Oral Tablet ORAL oxycodone hydrochloride 10 MG Oral TabletOriginal Medicationoxycodone hydrochloride 10 MG Oral Tablet *Reorder from [facility] for eRx and Interaction Alerts* 03/26/2013 Active {9 (Once-Daily gabapentin 300 MG Oral Tablet) / 69 (Once-Daily gabapentin 600 MG Oral Tablet) } Pack ORAL {9 (Once-Daily gabapentin 300 MG Oral Tablet) / 69 (Once-Daily gabapentin 600 MG Oral Tablet) } PackOriginal Medication{9 (Once-Daily gabapentin 300 MG Oral Tablet) / 69 (Once-Daily gabapentin 600 MG Oral Table 03/26/2013 Active Plan Of Treatment No Information Insurance Providers Payer Name Payer Address Payer Phone Subscriber Number Group Number Insured Name Patient Relationship to Insured Coverage Start Date Coverage End Date [facility] ATTN CLAIMS [address] [place] [address] [id number] MARCIN MCKEON Self - patient is the insured
--- OUTSIDE RECORDS SUMMARY | 2025-03-12 00:44 | XMS_ITS | Encounter Summary ---
Author Organization [facility] Address [address] [place] [address] Care Team Providers Care Hotel Reservation Agent Name Role Phone Anton Burrell MD Primary Care Provider [phone] Encounter Details Date Type Department Care Team (Late st Contact Info) Description 01/05/2019 Abstract [facility] CONVERSION [address] [place] [address] , Generic Conversion, Social History Tobacco Use [...] on filedocumented in this encounter Care Teams Hotel Reservation Agent Relationship Specialty Start Date End Date Anton Burrell MD [address] [place] [address] PCP - General INTERNAL MEDICINE 11/15/21 documented as of this encounter
--- OUTSIDE RECORDS SUMMARY | 2025-03-12 00:44 | XMS_ITS | Clinical Summary ---
Author Organization [facility] Address [address] [place] [address] Care Team Providers Care Interactive Multimedia Designer Name Role Phone Anton Burrell MD Primary Care Provider [phone] Allergies Active Allergy Reactions Criticality Noted Date [...] 4:43 PM CDT Height 167.6 cm (5' 6) 11/29/2021 4:43 PM CDT Body Mass Index [...] Years) (1 of 2 - PCV) 2002 HPV Vaccines (1 - 3-dose SCD M series) 2010 Mammogram Screening 2023 COVID-19 Vaccine (1 - 2023-2 5 season) 2024 Meningococcal B Vaccine Aged Out No l onger eligible based on patient's age to complete this topic Meningococcal Vaccine Aged Out No contreras carlyle eligible based on patient's age to complete this topic RSV Immunizations Under 20 Months Aged Out No longer eligible based on patient's age to complete this topic Care Teams Interactive Multimedia Designer Relationship Specialty Start Date End Date Anton Burrell MD [address] [place] [address] PCP - General INTERNAL MEDICINE 11/15/21
--- NOTE | 2025-03-12 00:50 | ED_ITS ---
HPI - Animal Bite General Chief Complaint: Animal Bite Stated Complaint: R Leg Dog Bite Time Seen by Provider: 03/12/25 00:47 Source: patient Mode of arrival: ambulatory Limitations: no limitations History of Present Illness HPI narrative: Patient is a 39-year-old female with a right lower extremity dog bite x2. Was bit this evening by her own dog. It was a provoked event as there was food involved and the dog wanted the food that she said he can not have laura at that time. Shots are up-to-date on the dog. Tetanus shot is up-to-date on the patient. No other injuries. MD complaint: animal bite Onset (ago): hour(s) ( One) Animal: dog Description of animal: household pet Mechanism: bite Location: other ( right lower extremity /leg anteriorly) Location - Extremities: Right: lower leg ( anteriorly) Pain description: dull Severity scale (1-10): 2 Context: provoked ( over food /garbage) Associated symptoms: none Treatments prior to arrival: wound dressing(s) Related Data Patient tetanus UTD: Yes Home Medications ?Medication ?Instructions ?Recorded ?Confirmed ?Last Taken ?Type albuterol sulfate 90 mcg/actuation 1 inhalation inhalation Q4H PRN SOB 06/21/19 12/03/24 10/01/19 09:00 History aerosol inhaler (ProAir HFA) diazepam 5 mg tablet 5 mg PO HS 09/24/19 12/03/24 10/02/19 04:15 History cyclobenzaprine 5 mg tablet 5 mg PO DAILY PRN muscle spasms 03/14/23 12/03/24 03/24/23 History hydrocodone 5 mg-acetaminophen 325 2 tablet PO DAILY PRN Pain 03/14/23 12/03/24 Unknown History mg tablet ketorolac 10 mg tablet 10 mg PO DAILY pain 03/14/23 12/03/24 Unknown History Allergies Allergy/AdvReac Type Severity Reaction Status Date / Time ibuprofen Allergy Unknown Hives Verified 03/12/25 00:48 naproxen Allergy Unknown Hives Verified 03/12/25 00:48 morphine AdvReac Unknown Nausea Verified 03/12/25 00:48 fentanyl AdvReac Unknown Verified 03/12/25 00:48 Review of Systems Review of Systems: All systems reviewed & are unremarkable except as noted in HPI and below Constitutional: Constitutional: Reports no additional constitutional co mplaints Eyes: Eyes: Reports no additional eye complaints ENT: Reports system reviewed and no additional complaints, except as documented Cardiovascular: Cardiovascular: Reports no additional cardiovascular complaints Respiratory: Respiratory: Reports no additional respiratory complaints Gastrointestinal: Gastrointestinal: Reports no additional gastrointestinal complaints Genitourinary: Genitourinary: Reports no additional female genitourinary complaints Musculoskeletal: Musculoskeletal: Reports no additional musculoskeletal complaints Integumentary/Breasts: Skin/Breast: Reports system reviewed and no additional complaints, except as docu Neurologic: Reports system reviewed and no additional complaints, except as documented Psychiatric: Psychiatric: Reports no additional psychiatric complaints Endocrine: Endocrine: Reports no additional endocrine complaints Hematologic/Lymphatic: Hematologic/Lymphatic: Reports no additional hematologic/lymphatic complaints Allergic/Immunologic: Allergic/Immunologic: Reports no additional allergic/immunologic complaints PMFSH Past Medical History Medical History Microscopic colitis IBS (irritable bowel syndrome) Loose stools Liver lesion Left lower quadrant abdominal pain Nausea NSAID long-term use Nausea and vomiting in adult GERD (gastroesophageal reflux disease) Pulmonary nodule 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, quit 07/2016 Nerve damage s/p back surgery Anxiety Asthma Depression (normal spontaneous vaginal delivery) Surgical History Surgical History H/O bilateral salpingectomy S/P laparoscopic assisted vaginal hysterectomy (LAVH) [place] teeth removed History of cholecystectomy History of back surgery L4-S1 Family History Family History Mother Family history of gallbladder disease Family history of malignant neoplasm of kidney Family history of malignant neoplasm of thyroid Father Family history of liver disease Family history of kidney disease Other Cerebrovascular accident Family history of allergic disorder Social History Social History Smoking packs per day: 1 Smoking cigarettes per day: 20.0 Smoking status: Current every day smoker Tobacco type: cigarettes Alcohol intake: current Drinks per week: 2 Substance use: current Substance use type: marijuana Other substance usage details: current- marijuana, former opiates Living arrangements: with family Gender identity (if verbalized by the patient): Female Spiritual care concerns: No Exam Const: General: healthy appearing Nutritional Appearance: well nourished Orientation/consciousness: patient oriented x3 Limitations: no limitations HENMT: Head: normal to inspection Ears: external ears normal Face/Nose/Sinus: Normal external nose present Eyes: Conjunctivae: conjunctivae normal Pupils: Equal, round and reactive pupils present EOM: EOMs intact bilaterally Neck: Neck: normal visual inspection Chest: Chest palpation & inspection: normal inspection of the chest Resp: Effort & Inspection: normal respiratory effort and not labored Auscultation: clear to auscultation bilaterally and no crackles Cardio: Rate: regular rate Rhythm: regular rhythm Heart sounds: no murmurs GI: Inspection: non-distended GI Palp: Yes Soft to palpation and No Tenderness to palpation present (GI) Auscultation: normal bowel sounds : General: Yes bladder normal to palpation Back/Spine/Pelvis: Back: no CVA tenderness Skin: General skin exam: normal color Rashes: no rashes Wounds: wound noted Other: right anterior lower leg mid shaft has a irregular lateral wound which is subcutaneous and 2.5 cm; medial to the other laceration is a 2 cm linear laceration to subcutaneous tissue; slight bleeding but no signs of infection; du e to the fact that the wound is large and open we will need to put a small closure plan by shawn on either end of the wound to assist with closure but not closing it too much so it can breathe and bacteria will not formulate abscess Neuro: General: patient oriented x3, moves all extremities and no meningeal signs Extrem: General: normal to inspection Psych: Mental Status: mental status grossly normal Affect: normal affect Attitude: cooperative Course Vital Signs Vital signs: Vital Signs Temperature 36.4 C 03/12/25 00:58 Pulse Rate 85 03/12/25 00:58 Respiratory Rate 20 03/12/25 00:58 Blood Pressure 143/86 H 03/12/25 00:58 Pulse Oximetry 98 03/12/25 00:58 Oxygen Delivery Room Air 03/12/25 00:58 Temperature 36.4 C 03/12/25 00:58 Pulse Rate 85 03/12/25 00:58 Respiratory Rate 20 03/12/25 00:58 Blood Pressure 143/86 H 03/12/25 00:58 Pulse Oximetry 98 03/12/25 00:58 Oxygen Delivery Room Air 03/12/25 00:58 MDM - Animal Bite MDM Narrative Medical decision making narrative: patient is a 39-year-old female with right lower extremity dog bite wounds x2. Augmentin p.o.. Tetanus up-to-date. Provoked event and no concerns for rabies. Animal shots up-to-date. Two shawn on either end of the wounds to assist with closure but enough opening to allow for breathe ability. Discharge Plan Discharge Clinical Impression: Dog bite Qualifiers: Encounter type: initial encounter Qualified Code(s): W54.0XXA - Bitten by dog, initial encounter Patient Disposition: Home Condition: Stable Instructions: Antibiotic Form, Animal Bite (ED) Additional Instructions: Please have the 4 shawn removed in 8-10 days. Have them removed earlier if there is any sign of abscess formation or pus drainage. Please use antibiotic ointment to the wounds once to twice a day to complete closure. Bandage. Patient Language: Swedish Prescriptions: New amoxicillin-pot clavulanate 875-125 mg tablet 1 tablet PO BID 10 Days Qty: 20 0RF No Action hydrocortisone 2.5 % cream 1 applic topical BID PRN (Reason: skin irritation) Qty: 20 0RF albuterol sulfate [ProAir HFA] 90 mcg/actuation HFA aerosol inhaler 1 inhalation INHALATION Q4H PRN (Reason: SOB) cholestyramine (with sugar) [Questran] 4 gram powder 4 g PO BID PRN (Reason: diarrhea) Qty: 348.6 3RF Rx Instructions: administer w/meal; avoid other meds within 1hr before or 4-6hr after dose diazepam 5 mg Tablet 5 mg PO HS hydrocodone-acetaminophen 5-325 mg tablet 2 tablet PO DAILY PRN (Reason: Pain) cyclobenzaprine 5 mg tablet 5 mg PO DAILY PRN (Reason: muscle spasms) ketorolac 10 mg tablet 10 mg PO DAILY lansoprazole 30 mg capsule,delayed release(DR/EC) See Rx Instructions .ROUTE .COMPLEX Qty: 60 11RF Dose Instruction: TAKE ONE CAPSULE BY MOUTH TWICE A DAY Rx Instructions: TAKE ONE CAPSULE BY MOUTH TWICE A DAY budesonide 3 mg capsule,delayed,extend.release 9 mg PO DAILY 90 Days Qty: 270 3RF Follow-up/Referrals: Anton Burrell MD [Primary Care Provider] - Time of Disposition: 01:09
[2025-03-12 00:58] VITALS: BP 143/86; PULSE 85; RESP 20; TEMP 36.4; O2SAT 98
--- OUTSIDE RECORDS SUMMARY | 2025-03-12 01:11 | XMS_ITS | Encounter Summary ---
Author Organization [facility] Address [address] [place] [id number] Care Team Providers Care Airconditioning Drafting Officer Name Role Phone Anton Burrell MD Primary Care Provider [phone] Encounter Details Date Type Department Care Team (Late st Contact Info) Description 01/05/2019 Abstract SFL CONVERSION [address] [place] [address] , Generic Conversion, Social History Tobacco Use [...] on filedocumented in this encounter Care Teams Airconditioning Drafting Officer Relationship Specialty Start Date End Date Anton Burrell MD [address] [place] [address] PCP - General INTERNAL MEDICINE 11/15/21 documented as of this encounter
--- OUTSIDE RECORDS SUMMARY | 2025-03-12 01:11 | XMS_ITS | Clinical Summary ---
Author Organization [facility] Address [address] [place] [address] Care Team Providers Care Fuel Dock Attendant Name Role Phone Anton Burrell MD Primary Care Provider [phone] Hair Manzano Unavailable [phone] Maxwell Cook MD Unavailable [phone] Allergies Active Allergy Reactions Criticality Noted Date [...] Surgical History Surgery Date Site/Laterality Comments CHOLECYSTECTOMY 2012 Cholecystectomy GALLBLADDER SURGERY Gallbladder Surgery - (Added by TW Conv) SD ARTHRD ANT INTERBODY MIN DSC LUMBAR Lumbar [...] on file Legal Sex Female 3:00 AM CATALOGUE LIBRARIAN Gender Identity Not on file Sexual Orientation [...] 86.2 kg (190 lb) 10/03/2022 10:40 AM CATALOGUE LIBRARIAN Height 165.1 cm (5' 5) 10/03/2022 10:40 AM CATALOGUE LIBRARIAN Body Mass Index 31.62 10/03/2022 10:40 AM CATALOGUE LIBRARIAN Plan of Treatment Health Maintenance Due Date Last Done Comments Breast Cancer Screening-Mammogram 1983 Depression Screening 1983 DTaP/Tdap/Td Vaccine (1 - Tdap) 1994 Varicella Vaccines (1 of 2 - 13+ 2-dose series) 1996 Hepatitis B Screening 2001 Regular Well Visit/Exam 18-64 2001 Pneumococcal vaccine <65 (1 of 2 - PCV) 2002 HPV Vaccines (1 - 3-dose SCD M series) 2010 Influenza Vaccine (#1) 2025 6, 04/30/2014, 09/25/2013, Additional history exists Hepatitis C Screening Completed 09/12/2013 Procedures Procedure Name Priority Date/Time Associated Diagnosis Comments SERUM HEPATITIS C AB Routine 09/12/2013 6:39 AM CATALOGUE LIBRARIAN from Last 3 Months or Most Recently Relevant to Health Maintenance Results * Serum Hepatitis C ab (09/12/2013 6:39 AM CATALOGUE LIBRARIAN) HCV ab Negative NEG HISTORICAL RESULTS Serum 09/12/2013 6:39 AM CATALOGUE LIBRARIAN Narrative HISTORICAL RESULTS - 09/13/2013 3:23 AM CATALOGUE LIBRARIAN Interpretive Data If confirmation is required, call Laboratory Customer Service to request sample to be sent to [facility] for Hepatitis C Virus (HCV) RNA Detection and Quantitation by Real-Time Reverse Almond Blancher Hand-PCR (RT-PCR). Current interpretive data was last revised on 2011 us Maxwell Cook MD LAB BLOOD ORDERABLES Final Result HISTORICAL RESULTS from Last 3 Months or Most Recently Relevant to Health Maintenance Insurance [facility] CMR Care Teams Fuel Dock Attendant Relationship Specialty Start Date End Date Anton Burrell MD PCP - General 09/19/16 Hair Manzano PA Physician Shore Working Supervisor Neurosurgery 07/06/22 Maxwell Cook MD [address] [place] [address] [address] Consulting Physician Neurosurgery 07/06/22
--- OUTSIDE RECORDS SUMMARY | 2025-03-12 01:11 | XMS_ITS | Clinical Summary ---
Author Organization [facility] Address [address] [place] [address] Care Team Providers Care Lipcoat Sprayer Name Role Phone Anton Burrell MD Primary Care Provider [phone] Allergies Active Allergy Reactions Criticality Noted Date [...] age to complete this topic Care Teams Lipcoat Sprayer Relationship Specialty Start Date End Date Anton Burrell MD [address] [place] [address] PCP - General INTERNAL MEDICINE 11/15/21
[2025-03-12] MEDS: NEOMYCIN/POLYMYXIN/BACITRACIN OINTMENT PACKET 1 PACKET TOPICAL (01:17)
[2025-03-12 01:26] VITALS: BP 118/89; PULSE 98; RESP 18; TEMP 37.3; O2SAT 99
== END 2025-03-12 01:26 | disposition home or self-care (01) ==
LOC: CHSED 01:10
PROVIDERS: Emergency Provider Emergency Medicine; PCP Internal Medicine
DX: S81.851A Open bite, right lower leg, initial encounter (principal); F17.210 Nicotine dependence, cigarettes, uncomplicated; W54.0XXA Bitten by dog, initial encounter
CPT/HCPCS: 12002; 99283; A9270

== ENCOUNTER 2025-05-26 07:20 | Outpatient (RCR) | payer BC, SELFPAY ==
--- NOTE | 2025-04-07 12:18 | WNDPHOTO ---
PHOTO ONLY - See Nursing Notes and/ or assessments for documentation.
[2025-04-07 13:45] VITALS: BMI 33.7
== END 2025-06-24 11:56 | disposition home or self-care (01) ==
LOC: ANHWOC 07:20
PROVIDERS: PCP Internal Medicine; Visit Provider Internal Medicine
DX: S81.852D Open bite, left lower leg, subsequent encounter (principal); T81.33XD Disruption of traumatic injury wound repair, subsequent encounter
CPT/HCPCS: 99213; 99214; A9270; G0463